=== PATIENT | female | born 1930 | race Two or more races ===

== ENCOUNTER → 2016-02-17 | Outpatient (CLI) | payer MEDICARE, MEDICAID | LOC: PNR 00:29 | PROVIDERS: ATTEND Internal Medicine | DX: E87.5 Hyperkalemia (principal); Z53.8 Procedure and treatment not carried out for other reasons ==

== ENCOUNTER 2016-06-16 20:47 | Inpatient (IN) | payer MEDICARE, MEDICAID ==
[2016-06-16] MEDS ORDERED: NORMAL SALINE 1000 ML 1,000 ML IV ONE ×2 (21:18→23:43)
--- NOTE | 2016-06-16 21:27 | ER Document Report ---
ED General - General Chief Complaint: Altered Mental Status Stated Complaint: ALTERED MENTAL STATUS Notes: Patient was transferred here from a local custodial to be evaluated for a change in mental status, apparently today. Patient supposedly has Alzheimer's dementia and her normal activity is very rudimentary moaning and making noises. Supposedly, today the patient is less responsive than usual and not displaying her normal level of activity. In route by EMS, they attempted to start IVs, but the patient was combative and unwilling to allow them to start the IV. She does not answer any questions or follow any verbal commands. She seems to be very soundly asleep with mentally decreased function. TRAVEL OUTSIDE OF THE [place] IN LAST 30 DAYS: No - Related Data Allergies/Adverse Reactions: No Known Allergies Allergy (Unverified 09/05/15 19:41) Past Medical History - Social History Smoking Status: Unknown if Ever Smoked Cigarette use (# per day): No Family History: Reviewed & Not Pertinent - Past Medical History Cardiac Medical History: Reports: Hx Congestive Heart Failure, Hx Hypercholesterolemia, Hx Hypertension Pulmonary Medical History: Reports: Hx Asthma Endocrine Medical History: Reports: Hx Diabetes Mellitus Type 2 Renal/ Medical History: Reports: Hx End Stage Renal Disease GI Medical History: Reports: Hx Gastroesophageal Reflux Disease Psychiatric Medical History: Reports: Hx Dementia, Hx Depression Past Surgical History: Reports: Hx Pacemaker Review of Systems - Review of Systems -: Yes ROS unobtainable due to patient's medical condition - Patient does not respond, follow commands, or answer questions. No family. Physical Exam - Vital signs Vitals: Resp Pulse Ox 15 99 06/16/16 21:12 06/16/16 21:12 Interpretation: Normal - Notes Notes: PHYSICAL EXAMINATION: GENERAL: Well-appearing, in no acute distress. Sleeping poorly responsive to any verbal or tactile stimulation. HEAD: Atraumatic, normocephalic. NECK: Normal range of motion, supple. LUNGS: Breath sounds clear and equal bilaterally. HEART: Regular rate and rhythm without murmurs. Not tachycardic ABDOMEN: Soft, nontender. No guarding or rebound. BACK: No tenderness throughout entire back. EXTREMITIES: Normal range of motion without pain. NEUROLOGICAL: Does not speak and gait cannot be tested. Patient is not awake or alert and not oriented. SKIN: Warm, dry, no rashes. Course - Re-evaluation Re-evalutation: 06/16/16 23:38 Patient remained stable throughout her stay in the department. Vital signs remained stable. She did not show any more activity than she did upon arrival. Her workup shows a UTI, some renal insufficiency, and some likely dehydration. 5 cultured her urine and her blood. Spoke with her primary care provider, Dr. Davis, who is going to the patient in for the rest of the night for observation while treating her for her UTI. Patient was put on Rocephin 1 g IV. I did call her son, local analyst geochemical prospecting Dr. Matthews, to make him aware of patient's circumstances and condition. - Vital Signs Vital signs: Temp Pulse Resp BP Pulse Ox 15 116/57 L 97 06/16/16 21:12 06/16/16 23:02 06/16/16 23:02 - Laboratory Result Diagrams: 06/16/16 21:30 06/16/16 21:30 Laboratory results interpreted by me: 06/16/16 06/16/16 06/16/16 21:30 21:30 22:30 Hgb 11.7 L Hct 34.9 L RDW 14.4 H Eosinophils % 11.8 H Absolute Eosinophils 0.8 H BUN 55 H Creatinine 2.47 H Est GFR ( Amer) 22 L Est GFR (Non-Af Amer) 18 L Glucose 135 H Direct Bilirubin 0.5 H AST 49 H Lipase 420.2 H Urine Protein 30 H Urine Blood SMALL H Ur Leukocyte Esterase LARGE H Urine Ascorbic Acid 20 H - Diagnostic Test Radiology reviewed: Image reviewed, Reports reviewed - Chest x-ray shows cardiomegaly with mild vascular congestion. Discharge - Discharge Clinical Impression: UTI (urinary tract infection) Qualifiers: Urinary tract infection type: site unspecified Hematuria presence: without hematuria Qualified Code(s): N39.0 - Urinary tract infection, site not specified Dementia Qualifiers: Dementia type: unspecified type Dementia behavioral disturbance: without behavioral disturbance Qualified Code(s): F03.90 - Unspecified dementia without behavioral disturbance Condition: Fair Disposition: ADMITTED OBSERVATION Admitting Provider: [facility] Unit Admitted: Medical Floor
[2016-06-16 21:51] LABS: ABSOLUTE BASOPHILS # (AUTO) 0.1 10^3/uL (0.0-0.2); ABSOLUTE EOSINOPHILS # (AUTO) 0.8 10^3/uL (0.0-0.6); ABSOLUTE MONOCYTES (AUTO) 0.7 10^3/uL (0.1-1.4); ABSOLUTE NEUT (AUTO) 3.1 10^3/uL (1.7-8.2); BASOPHILS % (AUTO) 0.8 % (0-2); EOSINOPHILS % (AUTO) 11.8 % (0-6); HEMATOCRIT 34.9 % (36.0-47.0); HEMOGLOBIN 11.7 g/dL (12.0-15.5); HGB HCT DIFFERENCE 0.2; LYMPHOCYTES % (AUTO) 30.1 % (13-45); MEAN CORPUSCULAR HEMOGLOBIN 27.7 pg (27.0-33.4); MEAN CORPUSCULAR HGB CONC 33.4 g/dL (32.0-36.0); MEAN CORPUSCULAR VOLUME 83 fl (80-97); MONOCYTES % (AUTO) 10.9 % (3-13); RED BLOOD COUNT 4.21 10^6/uL (3.72-5.28); RED CELL DISTRIBUTION WIDTH 14.4 % (11.5-14.0); SEGMENTED NEUTROPHILS % (AUTO) 46.4 % (42-78); WHITE BLOOD COUNT 6.7 10^3/uL (4.0-10.5)
[2016-06-16 22:16] LABS: ALANINE AMINOTRANSFERASE 20 U/L (9-52); ALBUMIN 3.5 g/dL (3.5-5.0); ALKALINE PHOSPHATASE 64 U/L (38-126); ANION GAP 12 (5-19); ASPARTATE AMINO TRANSFERASE 49 U/L (14-36); BILIRUBIN,DIRECT 0.5 mg/dL (0.0-0.4); BILIRUBIN,TOTAL 0.6 mg/dL (0.2-1.3); BLOOD UREA NITROGEN 55 mg/dL (7-20); CALCIUM 9.1 mg/dL (8.4-10.2); CARBON DIOXIDE 25 mmol/L (22-30); CHLORIDE 102 mmol/L (98-107); CREATININE RESULT 2.47 mg/dL (0.52-1.25); GLUCOSE 135 mg/dL (75-110); LIPASE 420.2 U/L (23-300); POTASSIUM 4.9 mmol/L (3.6-5.0); SODIUM 138.7 mmol/L (137-145); TOTAL PROTEIN 6.8 g/dL (6.3-8.2)
[2016-06-16 23:02] LABS: AMORPHOUS SEDIMENT,URINE TRACE /HPF; APPEARANCE,URINE CLOUDY; BILIRUBIN,URINE NEGATIVE (NEGATIVE); GLUCOSE, URINE NEGATIVE (NEGATIVE); KETONES,URINE NEGATIVE (NEGATIVE); LEUKOCYTE ESTERASE,URINE LARGE (NEGATIVE); NITRITE,URINE NEGATIVE (NEGATIVE); PROTEIN,URINE 30 mg/dL (NEGATIVE); URINE SPECIFIC GRAVITY 1.006; UROBILINOGEN,URINE NEGATIVE mg/dL (<2.0)
[2016-06-16] MEDS ORDERED: CEFTRIAXONE 1 GM/D5W RTU 50 ML IV ONE (23:20)
[2016-06-17] MEDS ORDERED: NORMAL SALINE 1000 ML 1,000 ML IV PRN (05:56)
--- NOTE | 2016-06-17 15:59 | PDOC H&P ---
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 She was seen and evaluated in the emergency room she was diagnosed with presumptive UTI and metabolic encephalopathy due to UTI and hospital admission was advised. She is a DNR status, no history could be obtained from this patient ,she normally does not communicate even in her good days, the difference now is that she is very stuporous but will respond to noxious stimulus like sternal pressure. The ED record was reviewed Past Medical History Cardiac Medical History: Reports: Hyperlipidema, Hypertension Pulmonary Medical History: Reports: Asthma Endocrine Medical History: Reports: Diabetes Mellitus Type 2 Renal/ Medical History: Reports: Chronic Kidney Disease - Chronic kidney disease stage IV, Other - Chronic kidney disease stage IV GI Medical History: Reports: Gastroesophageal Reflux Disease Psychiatric Medical History: Reports: Dementia Past Surgical History Past Surgical History: Reports: Pacemaker Social History Lives with: Assisted Smoking Status: Smoker,Current Status Unk Frequency of Alcohol Use: None Hx Prescription Drug Abuse: No Family History Family History: Reviewed & Not Pertinent Parental Family History Reviewed: Yes Children Family History Reviewed: Yes Sibling(s) Family History Reviewed.: Yes Medication/Allergy Home Medications: Acetaminophen [Tylenol 325 mg Tablet] 650 mg PO Q4HP PRN 06/17/16 Amlodipine Besylate [Norvasc 10 mg Tablet] 10 mg PO DAILY 06/17/16 Aspirin [Aspirin 81 mg Chewable Tablet] 81 mg PO DAILY 06/17/16 Budesonide/Formoterol Fumarate [Symbicort Hfa 160-4.5 Mcg Inhaler 6 gm] 2 puff IH Q12 06/17/16 Carvedilol [Coreg 6.25 mg Tablet] 6.25 mg PO Q12 06/17/16 Cholecalciferol (Vitamin D3) [Vitamin D3 1000 Unit Tablet] 1,000 unit PO DAILY 06/17/16 Citalopram Hydrobromide [Celexa 20 mg Tablet] 20 mg PO DAILY 06/17/16 Docusate Sodium [Colace 100 mg Capsule] 100 mg PO BID 06/17/16 Ferrous Sulfate [Feosol 325 mg Tablet] 325 mg PO DAILY 06/17/16 Furosemide [Lasix] 20 mg PO DAILY 06/17/16 Insulin Glargine,Hum.rec.anlog [Lantus Insulin 100 Unit/1 ml 10 ml] 5 unit SUBCUT QHS 06/17/16 Insulin Lispro [Humalog Insulin 100 Unit/1 ml 3 ml Vial] 0 unit SUBCUT .SLD SCALE PRN 06/17/16 Lorazepam [Ativan 0.5 mg Tablet] 0.5 mg PO BIDP PRN 06/17/16 Omeprazole 40 mg PO DAILY 06/17/16 Sodium Bicarbonate [Sodium Bicarbonate 650 mg Tablet] 650 mg PO TID 06/17/16 Sodium Polystyrene Sulfonate [Kayexalate 15 Gm/60 Ml Susp 60 Ml] 15 gm PO DAILY 06/17/16 Allergies/Adverse Reactions: No Known Allergies Allergy (Unverified 09/05/15 19:41) Review of Systems ROS unobtainable: Due to mental status Physical Exam Vital Signs: Temp Pulse Resp BP Pulse Ox 98.3 F 68 14 146/65 H 100 06/17/16 11:49 06/17/16 11:49 06/17/16 11:49 06/17/16 11:49 06/17/16 11:49 Intake & Output 06/16/16 06/17/16 06/18/16 06:59 06:59 06:59 Intake Total 0 Output Total 400 Balance -400 Weight 50.5 kg General appearance: PRESENT: other - Stuporous but responsive Eye exam: PRESENT: PERRLA Respiratory exam: PRESENT: clear to auscultation juana Cardiovascular exam: PRESENT: +S1, +S2 GI/Abdominal exam: PRESENT: soft Neurological exam: PRESENT: altered Results Impressions: Chest X-Ray 06/16/16 21:21 IMPRESSION: Cardiomegaly with mild pulmonary vascular congestion. Other findings as noted above Head CT 06/17/16 00:00 IMPRESSION: CHRONIC CHANGES OF ATROPHY AND MICROVASCULAR ISCHEMIA. NO ACUTE PROCESS. Assessment & Plan - Diagnosis (1) Metabolic encephalopathy Is this a current diagnosis for this admission?: Yes (2) Dementia Qualifiers: Dementia type: unspecified type Dementia behavioral disturbance: without behavioral disturbance Qualified Code(s): F03.90 - Unspecified dementia without behavioral disturbance (3) UTI (urinary tract infection) Qualifiers: Urinary tract infection type: site unspecified Hematuria presence: without hematuria Qualified Code(s): N39.0 - Urinary tract infection, site not specified Is this a current diagnosis for this admission?: YesPlan: Treat with IV antibiotic Rocephin
[2016-06-17 16:15] LABS: HEMOGLOBIN 12.2 g/dL (12.0-15.5); HGB HCT DIFFERENCE 0.6; MEAN CORPUSCULAR HGB CONC 33.9 g/dL (32.0-36.0); MEAN CORPUSCULAR VOLUME 83 fl (80-97); RED BLOOD COUNT 4.37 10^6/uL (3.72-5.28); RED CELL DISTRIBUTION WIDTH 14.2 % (11.5-14.0); WHITE BLOOD COUNT 7.3 10^3/uL (4.0-10.5)
[2016-06-17 16:23] LABS: PARTIAL THROMBOPLASTIN TIME 28.6 SEC (23.5-35.8); PROTHROMBIN TIME 13.4 SEC (11.4-15.4)
[2016-06-17] MEDS ORDERED: CEFTRIAXONE 1 GM/D5W RTU 1 GM/50 ML RTUPB IV SCH (22:00)
[2016-06-17] MEDS: HEPARIN SOD (PORCINE) 5,000 UNIT/ML 1 ML SYRINGE SUBCUT SCH (23:26)
[2016-06-18] MEDS: HEPARIN SOD (PORCINE) 5,000 UNIT/ML 1 ML SYRINGE SUBCUT SCH ×3 (06:18→23:53)
[2016-06-18] MEDS ORDERED: ACETAMINOPHEN 325 MG TABLET PO PRN (19:13)
--- NOTE | 2016-06-18 19:15 | PDOC PROGRESS REPORT ---
Subjective Progress Note for:: 06/18/16 Subjective:: She is back to her baseline, she is awake nonverbal, when she was admitted she was virtually unresponsive, she was not started on a regular medication because of the unresponsiveness she will be started on medications now, so clearly she responded to IV antibiotic suggesting that the metabolic encephalopathy is due to UTI no organism is cultured yet in the urine. Physical Exam Vital Signs: Temp Pulse Resp BP Pulse Ox 97.5 F 59 L 17 150/50 H 100 06/18/16 15:55 06/18/16 15:55 06/18/16 15:55 06/18/16 15:55 06/18/16 15:55 Intake & Output 06/17/16 06/18/16 06/19/16 06:59 06:59 06:59 Intake Total 0 1777 236 Output Total 400 2800 700 Balance -400 -1023 -464 Weight 50.5 kg 50.4 kg General appearance: PRESENT: no acute distress Eye exam: PRESENT: PERRLA Respiratory exam: PRESENT: clear to auscultation juana Cardiovascular exam: PRESENT: +S1, +S2 GI/Abdominal exam: PRESENT: soft Neurological exam: PRESENT: alert Results Laboratory Results: 06/17/16 16:08 06/17/16 16:08 Impressions: Chest X-Ray 06/16/16 21:21 IMPRESSION: Cardiomegaly with mild pulmonary vascular congestion. Other findings as noted above Head CT 06/17/16 00:00 IMPRESSION: CHRONIC CHANGES OF ATROPHY AND MICROVASCULAR ISCHEMIA. NO ACUTE PROCESS. Assessment & Plan - Diagnosis (1) Metabolic encephalopathy Is this a current diagnosis for this admission?: Yes (2) Dementia Qualifiers: Dementia type: unspecified type Dementia behavioral disturbance: without behavioral disturbance Qualified Code(s): F03.90 - Unspecified dementia without behavioral disturbance (3) UTI (urinary tract infection) Qualifiers: Urinary tract infection type: site unspecified Hematuria presence: without hematuria Qualified Code(s): N39.0 - Urinary tract infection, site not specified Is this a current diagnosis for this admission?: Yes (4) Chronic kidney disease, stage IV (severe) Is this a current diagnosis for this admission?: Yes (5) Diabetes mellitus Qualifiers: Diabetes mellitus type: type 2 Diabetes mellitus complication status: with kidney complications Diabetes mellitus complication detail: with chronic kidney disease 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
[2016-06-18] MEDS ORDERED: FUROSEMIDE 20 MG TABLET PO ONE (21:00)
[2016-06-18] MEDS ORDERED: AMLODIPINE BESYLATE 10 MG TABLET PO ONE (21:00)
[2016-06-18] MEDS ORDERED: CITALOPRAM HYDROBROMIDE 20 MG TABLET PO ONE (21:00)
[2016-06-18] MEDS ORDERED: CHOLECALCIFEROL (D3) 1,000 UNIT TABLET PO ONE (21:00)
[2016-06-18] MEDS ORDERED: SODIUM POLYSTYRENE SULFONATE 15 GM/60 ML PO ONE (21:00)
[2016-06-18] MEDS ORDERED: ASPIRIN 81 MG TABLET, CHEWABLE PO ONE (21:00)
[2016-06-18] MEDS ORDERED: FERROUS SULFATE 325 MG TABLET PO ONE (21:00)
[2016-06-18] MEDS ORDERED: CEFTRIAXONE 1 GM/D5W RTU 1 GM/50 ML RTUPB IV SCH (22:00)
[2016-06-18] MEDS ORDERED: INSULIN GLARGINE,HUM.REC.ANLOG 300 UNIT/3 ML INSULN.PEN SUBCUT SCH (22:00)
[2016-06-18] MEDS ORDERED: SODIUM POLYSTYRENE SULFONATE 15 GM/60 ML PO SCH (22:00)
[2016-06-18] MEDS: DOCUSATE SODIUM 100 MG CAPSULE PO SCH (23:50)
[2016-06-18] MEDS: BUDESONIDE/FORMOTEROL 160-4.5 MCG 60 PUFF/6 GM MDI IH SCH (23:51)
[2016-06-18] MEDS: CARVEDILOL 6.25 MG TABLET PO SCH (23:52)
[2016-06-18] MEDS: SODIUM BICARBONATE 650 MG TABLET PO SCH (23:52)
[2016-06-19] MEDS: SODIUM BICARBONATE 650 MG TABLET PO SCH ×3 (06:17→21:32)
[2016-06-19] MEDS: HEPARIN SOD (PORCINE) 5,000 UNIT/ML 1 ML SYRINGE SUBCUT SCH ×2 (06:17→16:00)
[2016-06-19] MEDS ORDERED: LANSOPRAZOLE 30 MG TAB.RAP.DR PO SCH (10:00)
[2016-06-19] MEDS ORDERED: ASPIRIN 81 MG TABLET, CHEWABLE PO SCH (10:00)
[2016-06-19] MEDS ORDERED: CITALOPRAM HYDROBROMIDE 20 MG TABLET PO SCH (10:00)
[2016-06-19] MEDS ORDERED: FERROUS SULFATE 325 MG TABLET PO SCH (10:00)
[2016-06-19] MEDS ORDERED: CHOLECALCIFEROL (D3) 1,000 UNIT TABLET PO SCH (10:00)
[2016-06-19] MEDS ORDERED: FUROSEMIDE 20 MG TABLET PO SCH (10:00)
[2016-06-19] MEDS ORDERED: AMLODIPINE BESYLATE 10 MG TABLET PO SCH (10:00)
[2016-06-19] MEDS: DOCUSATE SODIUM 100 MG CAPSULE PO SCH (12:01)
[2016-06-19] MEDS: BUDESONIDE/FORMOTEROL 160-4.5 MCG 60 PUFF/6 GM MDI IH SCH (12:03)
[2016-06-19] MEDS: CARVEDILOL 6.25 MG TABLET PO SCH ×2 (12:03→21:32)
[2016-06-19 14:18] LABS: ABSOLUTE BASOPHILS # (AUTO) 0.1 10^3/uL (0.0-0.2); ABSOLUTE EOSINOPHILS # (AUTO) 0.6 10^3/uL (0.0-0.6); ABSOLUTE LYMPHOCYTES (AUTO) 1.3 10^3/uL (0.5-4.7); ABSOLUTE MONOCYTES (AUTO) 0.5 10^3/uL (0.1-1.4); ABSOLUTE NEUT (AUTO) 4.3 10^3/uL (1.7-8.2); BASOPHILS % (AUTO) 1.1 % (0-2); EOSINOPHILS % (AUTO) 9.1 % (0-6); HEMATOCRIT 35.4 % (36.0-47.0); HEMOGLOBIN 11.6 g/dL (12.0-15.5); HGB HCT DIFFERENCE -0.6; LYMPHOCYTES % (AUTO) 19.1 % (13-45); MEAN CORPUSCULAR HEMOGLOBIN 27.3 pg (27.0-33.4); MEAN CORPUSCULAR HGB CONC 32.6 g/dL (32.0-36.0); MEAN CORPUSCULAR VOLUME 84 fl (80-97); MONOCYTES % (AUTO) 7.3 % (3-13); RED BLOOD COUNT 4.23 10^6/uL (3.72-5.28); RED CELL DISTRIBUTION WIDTH 14.5 % (11.5-14.0); SEGMENTED NEUTROPHILS % (AUTO) 63.4 % (42-78); WHITE BLOOD COUNT 6.8 10^3/uL (4.0-10.5)
[2016-06-19 14:31] LABS: ALANINE AMINOTRANSFERASE 62 U/L (9-52); ALBUMIN 3.4 g/dL (3.5-5.0); ALKALINE PHOSPHATASE 78 U/L (38-126); ANION GAP 11 (5-19); ASPARTATE AMINO TRANSFERASE 75 U/L (14-36); BILIRUBIN,DIRECT 0.3 mg/dL (0.0-0.4); BILIRUBIN,TOTAL 0.5 mg/dL (0.2-1.3); BLOOD UREA NITROGEN 29 mg/dL (7-20); CALCIUM 8.8 mg/dL (8.4-10.2); CARBON DIOXIDE 23 mmol/L (22-30); CHLORIDE 108 mmol/L (98-107); GLUCOSE 112 mg/dL (75-110); POTASSIUM 4.5 mmol/L (3.6-5.0); SODIUM 142.3 mmol/L (137-145); TOTAL PROTEIN 6.3 g/dL (6.3-8.2)
[2016-06-19 15:02] LABS: THYROID STIMULATING HORMONE 2.86 uIU/mL (0.47-4.68)
--- NOTE | 2016-06-19 17:34 | PDOC TRANSFER SUMMARY ---
General - Admit/Disc Date/PCP Admission Date/Primary Care Provider: 06/17/16 05:45 CANDICE LUND MD Discharge Date: 06/19/16 - Discharge Diagnosis (1) Metabolic encephalopathy Is this a current diagnosis for this admission?: Yes (3) UTI (urinary tract infection) Is this a current diagnosis for this admission?: Yes (4) Chronic kidney disease, stage IV (severe) Is this a current diagnosis for this admission?: Yes (5) Diabetes mellitus Is this a current diagnosis for this admission?: Yes - Additional Information Home Medications: Acetaminophen [Tylenol 325 mg Tablet] 650 mg PO Q4HP PRN 06/17/16 Amlodipine Besylate [Norvasc 10 mg Tablet] 10 mg PO DAILY 06/17/16 Aspirin [Aspirin 81 mg Chewable Tablet] 81 mg PO DAILY 06/17/16 Budesonide/Formoterol Fumarate [Symbicort HFA 160-4.5 mcg Inhaler 6 gm] 2 puff IH Q12 06/17/16 Carvedilol [Coreg 6.25 mg Tablet] 6.25 mg PO Q12 06/17/16 Cholecalciferol (Vitamin D3) [Vitamin D3 1000 Unit Tablet] 1,000 unit PO DAILY 06/17/16 Citalopram Hydrobromide [Celexa 20 mg Tablet] 20 mg PO DAILY 06/17/16 Docusate Sodium [Colace 100 mg Capsule] 100 mg PO BID 06/17/16 Ferrous Sulfate [Feosol 325 mg Tablet] 325 mg PO DAILY 06/17/16 Furosemide [Lasix] 20 mg PO DAILY 06/17/16 Insulin Glargine,Hum.rec.anlog [Lantus Insulin 100 Unit/1 ml 10 ml] 5 unit SUBCUT QHS 06/17/16 Insulin Lispro [Humalog Insulin (Lispro) 100 unit/mL] 0 unit SUBCUT .SLD SCALE PRN 06/17/16 Lorazepam [Ativan 0.5 mg Tablet] 0.5 mg PO BIDP PRN 06/17/16 Omeprazole 40 mg PO DAILY 06/17/16 Sodium Bicarbonate [Sodium Bicarbonate 650 mg Tablet] 650 mg PO TID 06/17/16 Sodium Polystyrene Sulfonate [Kayexalate 15 gm/60 ml Susp 60 ml] 15 gm PO DAILY 05/03/17 Nitrofurantoin Macrocrystal [Nitrofurantoin] 50 mg PO Q6H #28 capsule 06/19/16 History of Present Illness Admission Date/PCP: 06/17/16 05:45 CANDICE LUND MD History of Present Illness: AUDRA LANDRY is a 86 year old female, advanced dementia, 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 She was seen and evaluated in the emergency room she was diagnosed with presumptive UTI and metabolic encephalopathy due to UTI and hospital admission was advised. She is a DNR status, no history could be obtained from this patient ,she normally does not communicate even in her good days, the difference now is that she is very stuporous but will respond to noxious stimulus like sternal pressure. The ED record was reviewed Hospital Course Hospital Course: Patient was admitted because of UTI and metabolic encephalopathy, on admission she was very stuporous, she was treated with IV Rocephin and she regained full consciousness in 24 hours she was back to her baseline . 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 The urine culture grew Streptococcus Physical Exam Vital Signs: Temp Pulse Resp BP Pulse Ox 97.3 F 59 L 17 171/62 H 99 06/19/16 15:56 06/19/16 15:56 06/19/16 15:56 06/19/16 15:56 06/19/16 15:56 Intake & Output 06/18/16 06/19/16 06/20/16 06:59 06:59 06:59 Intake Total 1777 1162 357 Output Total 2800 2200 500 Balance -1023 -1038 -143 Weight 50.4 kg 50.4 kg General appearance: PRESENT: no acute distress Eye exam: PRESENT: PERRLA Respiratory exam: PRESENT: clear to auscultation juana Cardiovascular exam: PRESENT: +S1, +S2 Neurological exam: PRESENT: alert Results Laboratory Results: 06/19/16 13:59 06/19/16 13:59 06/19/16 06/19/16 06/19/16 13:59 13:59 13:59 WBC 6.8 RBC 4.23 Hgb 11.6 L Hct 35.4 L MCV 84 MCH 27.3 MCHC 32.6 RDW 14.5 H Plt Count 209 Seg Neutrophils % 63.4 Lymphocytes % 19.1 Monocytes % 7.3 Eosinophils % 9.1 H Basophils % 1.1 Absolute Neutrophils 4.3 Absolute Lymphocytes 1.3 Absolute Monocytes 0.5 Absolute Eosinophils 0.6 Absolute Basophils 0.1 Sodium 142.3 Potassium 4.5 Chloride 108 H Carbon Dioxide 23 Anion Gap 11 BUN 29 H Creatinine 1.70 H Est GFR ( Amer) 34 L Est GFR (Non-Af Amer) 28 L Glucose 112 H Calcium 8.8 Total Bilirubin 0.5 AST 75 H ALT 62 H Alkaline Phosphatase 78 Total Protein 6.3 Albumin 3.4 L TSH 2.86 Free T4 1.32 Impressions: Chest X-Ray 06/16/16 21:21 IMPRESSION: Cardiomegaly with mild pulmonary vascular congestion. Other findings as noted above Head CT 06/17/16 00:00 IMPRESSION: CHRONIC CHANGES OF ATROPHY AND MICROVASCULAR ISCHEMIA. NO ACUTE PROCESS.
[2016-06-19 21:27] VITALS: BP 187/63
== END 2016-06-19 22:03 | DRG 689 ==
LOC: ER 20:47 → EH 23:37 → 2N 06-17 03:10 → OBSVTOIN 06-17 05:45 → 4W 06-17 12:43
PROVIDERS: ADMIT Internal Medicine; ATTEND Internal Medicine
DX: N39.0 Urinary tract infection, site not specified (principal); G93.41 Metabolic encephalopathy; N18.4 Chronic kidney disease, stage 4 (severe); I13.0 Hypertensive heart and chronic kidney disease with heart failure and stage 1 through stage 4 chronic kidney disease, or unspecified chronic kidney disease; F03.90 Unspecified dementia, unspecified severity, without behavioral disturbance, psychotic disturbance, mood disturbance, and anxiety; E11.22 Type 2 diabetes mellitus with diabetic chronic kidney disease; E78.5 Hyperlipidemia, unspecified; J45.909 Unspecified asthma, uncomplicated; K21.9 Gastro-esophageal reflux disease without esophagitis; F17.210 Nicotine dependence, cigarettes, uncomplicated; F32.9 Major depressive disorder, single episode, unspecified; B95.1 Streptococcus, group B, as the cause of diseases classified elsewhere; Z66 Do not resuscitate; Z95.0 Presence of cardiac pacemaker; Z88.6 Allergy status to analgesic agent; Z79.02 Long term (current) use of antithrombotics/antiplatelets; Z79.4 Long term (current) use of insulin; Z79.899 Other long term (current) drug therapy
CPT/HCPCS: 36415; 70450; 71010; 80053; 81001; 82565; 82962; 83690; 84439; 84443; 85025; 85027; 85610; 85730; 87040; 87077; 87086; 87088; 87186; 96361; 96365; 99285; J0696; J1644; J1815; J3490; J7030

== ENCOUNTER 2016-07-25 10:51 | Inpatient (IN) | payer MEDICARE, MEDICAID ==
--- NOTE | 2016-07-25 11:04 | ER Document Report ---
ED Respiratory Problem - General Stated Complaint: RESPIRATORY DISTRESS Time Seen by Provider: 07/25/16 11:01 Notes: Patient is a resident at a local snf. She has a history of heart disease and other medical conditions. She is a DNR status patient. EMS was called today for patient having difficulty breathing. They found her having some respiratory difficulty and wheezes and gave her 2 nebulizer treatments with albuterol and Atrovent. She also was found to have rectal temp of 100.8 at the snf. Patient does not respond to questions or answer any questions or follow commands. I understand that is her normal neurologic status , TRAVEL OUTSIDE OF THE [place] IN LAST 30 DAYS: No - Related Data Allergies/Adverse Reactions: No Known Allergies Allergy (Verified 07/25/16 11:38) Past Medical History - Social History Smoking Status: Never Smoker Cigarette use (# per day): No Family History: Reviewed & Not Pertinent - Past Medical History Cardiac Medical History: Reports: Hx Congestive Heart Failure, Hx Hypercholesterolemia, Hx Hypertension Pulmonary Medical History: Reports: Hx Asthma Endocrine Medical History: Reports: Hx Diabetes Mellitus Type 2 Renal/ Medical History: Reports: Hx End Stage Renal Disease GI Medical History: Reports: Hx Gastroesophageal Reflux Disease Psychiatric Medical History: Reports: Hx Dementia, Hx Depression Past Surgical History: Reports: Hx Pacemaker Review of Systems - Review of Systems -: Yes ROS unobtainable due to patient's medical condition - Patient does not speak or respond to verbal commands or questions. No fami Physical Exam - Vital signs Vitals: Temp Pulse Resp BP Pulse Ox 100.5 F H 69 23 H 181/64 H 97 07/25/16 10:55 07/25/16 10:55 07/25/16 10:55 07/25/16 10:55 07/25/16 10:55 Interpretation: Hypertensive, Tachycardic, Febrile - Notes Notes: PHYSICAL EXAMINATION: GENERAL: Patient appears to be resting comfortably. Does not respond to questions or follow any commands. Wheezing audible to the naked ear noted. HEAD: Atraumatic, normocephalic. ENT: oropharynx clear without exudates. Moist mucous membranes. NECK: Normal range of motion, supple. LUNGS: Bilateral expiratory wheezes. HEART: Regular rate and rhythm without murmurs. ABDOMEN: Soft, nontender. No guarding or rebound. BACK: No tenderness throughout entire back. EXTREMITIES: Normal range of motion without pain. No edema present. NEUROLOGICAL: Patient does not respond to questions or follow commands. She is a DNR patient. PSYCH: Unable to assess. SKIN: Warm, dry, no rashes. Course - Re-evaluation Re-evalutation: 07/25/16 12:56 Patient's lab work shows some mild renal insufficiency. White cell count slightly elevated. Patient was given a gram of Rocephin IV for possible pneumonia. Urinalysis was essentially normal. Cultures of blood and urine are pending. Discussed the results with the patient's son, who is a local pump house engineer, Dr. Matthews. I will contact this patient's primary care provider for admission. 07/25/16 13:08 - Vital Signs Vital signs: Temp Pulse Resp BP Pulse Ox 100.5 F H 69 18 155/53 H 99 07/25/16 10:55 07/25/16 10:55 07/25/16 12:01 07/25/16 12:01 07/25/16 12:01 - Laboratory Result Diagrams: 07/25/16 11:20 07/25/16 11:20 Laboratory results interpreted by me: 07/25/16 07/25/16 07/25/16 11:20 11:20 11:20 WBC 12.3 H RBC 3.51 L Hgb 9.5 L Hct 29.7 L RDW 14.2 H Seg Neutrophils % 85.3 H Lymphocytes % 7.4 L Absolute Neutrophils 10.5 H Sodium 145.4 H Chloride 110 H BUN 32 H Creatinine 2.08 H Est GFR ( Amer) 27 L Est GFR (Non-Af Amer) 23 L Glucose 236 H Calcium 8.3 L AST 37 H NT-Pro-B Natriuret Pep 59475 H Albumin 2.9 L Urine Protein Urine Glucose (UA) Urine Ascorbic Acid 07/25/16 11:20 WBC RBC Hgb Hct RDW Seg Neutrophils % Lymphocytes % Absolute Neutrophils Sodium Chloride BUN Creatinine Est GFR ( Amer) Est GFR (Non-Af Amer) Glucose Calcium AST NT-Pro-B Natriuret Pep Albumin Urine Protein >=500 H Urine Glucose (UA) 50 H Urine Ascorbic Acid 20 H - Diagnostic Test Radiology reviewed: Image reviewed, Reports reviewed - Patient's chest x-ray shows some cardiomegaly and some increased pulmonary vascular congestion. When I compare it to her previous chest x-ray, I believe there is some evidence of infiltrate and pneumonia. - EKG Interpretation by Me EKG shows normal: Sinus rhythm Rate: Normal Rhythm: NSR [place]/QRS: RBBB Discharge - Discharge Clinical Impression: Fever Qualifiers: Fever type: unspecified Qualified Code(s): R50.9 - Fever, unspecified Pneumonia Qualifiers: Pneumonia type: due to unspecified organism Laterality: right Lung location: middle lobe of lung Qualified Code(s): J18.1 - Lobar pneumonia, unspecified organism Condition: Poor Disposition: ADMITTED INPATIENT Admitting Provider: [facility] Admitted: Telemetry
[2016-07-25] MEDS ORDERED: NORMAL SALINE 1000 ML 1,000 ML IV ONE (11:09)
[2016-07-25] MEDS ORDERED: IPRATROPIUM/ALBUTEROL 0.5-2.5 MG/3 ML AMPUL NEB ONE (11:10)
--- NOTE | 2016-07-25 11:25 | RADIOLOGY REPORT (SQ) ---
EXAM DESCRIPTION: CHEST SINGLE VIEW COMPLETED DATE/TIME: 07/25/2016 11:15 am REASON FOR STUDY: sob COMPARISON: 06/16/2016 NUMBER OF VIEWS: One view. TECHNIQUE: Single frontal radiographic view of the chest acquired. LIMITATIONS: None. FINDINGS: LUNGS AND PLEURA: No opacities, masses or pneumothorax. No pleural effusion. MEDIASTINUM AND HILAR STRUCTURES: No masses or contour abnormality. HEART AND VASCULATURE: Cardiac enlargement. Vascular congestion. BONES: No acute findings. HARDWARE: STABLE. OTHER: No other significant finding. IMPRESSION: CARDIAC ENLARGEMENT. VASCULAR CONGESTION. TECHNICAL DOCUMENTATION: JOB ID: [id number] [employer]- All Rights Reserved
[2016-07-25 12:00] LABS: APPEARANCE,URINE CLEAR; BILIRUBIN,URINE NEGATIVE (NEGATIVE); GLUCOSE, URINE 50 mg/dL (NEGATIVE); KETONES,URINE NEGATIVE (NEGATIVE); LEUKOCYTE ESTERASE,URINE NEGATIVE (NEGATIVE); NITRITE,URINE NEGATIVE (NEGATIVE); PROTEIN,URINE >=500 mg/dL (NEGATIVE); UROBILINOGEN,URINE NEGATIVE mg/dL (<2.0)
[2016-07-25 12:05] LABS: ABSOLUTE BASOPHILS # (AUTO) 0.1 10^3/uL (0.0-0.2); ABSOLUTE EOSINOPHILS # (AUTO) 0.1 10^3/uL (0.0-0.6); ABSOLUTE LYMPHOCYTES (AUTO) 0.9 10^3/uL (0.5-4.7); ABSOLUTE MONOCYTES (AUTO) 0.8 10^3/uL (0.1-1.4); ABSOLUTE NEUT (AUTO) 10.5 10^3/uL (1.7-8.2); BASOPHILS % (AUTO) 0.6 % (0-2); EOSINOPHILS % (AUTO) 0.5 % (0-6); HEMATOCRIT 29.7 % (36.0-47.0); HEMOGLOBIN 9.5 g/dL (12.0-15.5); HGB HCT DIFFERENCE -1.2; LYMPHOCYTES % (AUTO) 7.4 % (13-45); MEAN CORPUSCULAR HEMOGLOBIN 27.1 pg (27.0-33.4); MEAN CORPUSCULAR HGB CONC 32.2 g/dL (32.0-36.0); MEAN CORPUSCULAR VOLUME 84 fl (80-97); MONOCYTES % (AUTO) 6.2 % (3-13); RED BLOOD COUNT 3.51 10^6/uL (3.72-5.28); RED CELL DISTRIBUTION WIDTH 14.2 % (11.5-14.0); SEGMENTED NEUTROPHILS % (AUTO) 85.3 % (42-78); WHITE BLOOD COUNT 12.3 10^3/uL (4.0-10.5)
[2016-07-25] MEDS ORDERED: CEFTRIAXONE 1 GM/D5W RTU 50 ML IV ONE (12:08)
[2016-07-25 12:12] LABS: ALANINE AMINOTRANSFERASE 23 U/L (9-52); ALBUMIN 2.9 g/dL (3.5-5.0); ALKALINE PHOSPHATASE 108 U/L (38-126); ANION GAP 13 (5-19); ASPARTATE AMINO TRANSFERASE 37 U/L (14-36); BILIRUBIN,DIRECT 0.4 mg/dL (0.0-0.4); BILIRUBIN,TOTAL 0.8 mg/dL (0.2-1.3); BLOOD UREA NITROGEN 32 mg/dL (7-20); CALCIUM 8.3 mg/dL (8.4-10.2); CARBON DIOXIDE 22 mmol/L (22-30); CHLORIDE 110 mmol/L (98-107); CREATININE RESULT 2.08 mg/dL (0.52-1.25); GLUCOSE 236 mg/dL (75-110); POTASSIUM 3.8 mmol/L (3.6-5.0); SODIUM 145.4 mmol/L (137-145); TOTAL PROTEIN 6.7 g/dL (6.3-8.2)
[2016-07-25 12:25] LABS: CREATINE KINASE MB 1.09 ng/mL (<4.55)
[2016-07-25 12:30] LABS: TROPONIN I 0.136 ng/mL
[2016-07-25] MEDS ORDERED: FUROSEMIDE INJ/PF 20 MG/2 ML SDV IV ONE (12:53)
[2016-07-25 15:46] LABS: URINE CREATININE 48.8 mg/dL (15-278)
--- NOTE | 2016-07-25 15:51 | RADIOLOGY REPORT (SQ) ---
EXAM DESCRIPTION: CT CHEST WITHOUT COMPLETED DATE/TIME: 07/25/2016 3:32 pm REASON FOR STUDY: pneumonia COMPARISON: None. TECHNIQUE: CT scan performed of the chest without intravenous contrast. Images reviewed with lung, soft tissue and bone windows. Reconstructed coronal and sagittal MPR images reviewed. All images st ored on PACS. All CT scanners at this facility use dose modulation, iterative reconstruction, and/or weight based d osing when appropriate to reduce radiation dose to as low as reasonably achievable (ALARA). [facility]: Dose Right [facility]: CareDose [facility]: Dose Right [facility]: Teradose 4D [facility]: RIVA Group RADIATION DOSE: 7.97 mGy. LIMITATIONS: No technical limitations. FINDINGS: LUNGS AND PLEURA: Diffuse ground-glass opacities with more focal airspace disease in the r ight upper lobe and right middle lobe. Small bilateral pleural effusions, right greater than left. HILAR AND MEDIASTINAL STRUCTURES: No identified masses or abnormal nodes. No obvious aneurysm. HEART AND VASCULAR STRUCTURES: No aneurysm. Multichamber cardiomegaly. No significant pericardial e ffusion. UPPER ABDOMEN: No significant findings. Limited exam. THYROID AND OTHER SOFT TISSUES: No masses. No adenopathy. BONES: No significant finding. HARDWARE: None in the chest. OTHER: No other significant findings. IMPRESSION: DIFFUSE GROUND-GLASS OPACITIES COMPATIBLE WITH PULMONARY EDEMA ALONG WITH SMALL BILATERA L PLEURAL EFFUSIONS. ADDITIONAL AIRSPACE DISEASE WITHIN THE RIGHT UPPER LOBE AND RIGHT MIDDLE LOBE MAY REPRESENT SUPERIMPO SED PNEUMONIA. CORRELATE WITH FEVER/ELEVATED WHITE BLOOD CELL COUNT. TECHNICAL DOCUMENTATION: JOB ID: [id number] Quality ID # [id number]: Final reports with documentation of one or more dose reduction techniques (e.g., Au tomated exposure control, adjustment of the mA and/or kV according to patient size, use of iterative reconstruction technique) 2010 [employer]- All Rights Reserved
[2016-07-25 15:52] LABS: URINE PROTEIN 478.9 mg/dL (<12)
[2016-07-25] MEDS ORDERED: IPRATROPIUM/ALBUTEROL 0.5-2.5 MG/3 ML AMPUL NEB SCH (16:00)
[2016-07-25] MEDS ORDERED: DEXTROSE 40% GEL 15 GM TUBE PO PRN ×2 (16:23)
[2016-07-25] MEDS ORDERED: GLUCAGON,HUMAN RECOMB 1 MG INJ IM PRN (16:23)
[2016-07-25] MEDS ORDERED: DEXTROSE 50%-WATER 25 GM/50 ML DISP.SYRIN IV PRN ×2 (16:23)
[2016-07-25] MEDS ORDERED: FUROSEMIDE INJ/PF 40 MG/4 ML SDV IV ONE (17:00)
[2016-07-25] MEDS ORDERED: LEVOFLOXACIN 500 MG/D5W RTU 500 MG/100 ML RTUPB IV ONE (17:00)
[2016-07-25 17:08] LABS: HEMATOCRIT 29.1 % (36.0-47.0); HEMOGLOBIN 9.2 g/dL (12.0-15.5); HGB HCT DIFFERENCE -1.5; MEAN CORPUSCULAR HEMOGLOBIN 26.6 pg (27.0-33.4); MEAN CORPUSCULAR HGB CONC 31.6 g/dL (32.0-36.0); MEAN CORPUSCULAR VOLUME 84 fl (80-97); RED BLOOD COUNT 3.47 10^6/uL (3.72-5.28); RED CELL DISTRIBUTION WIDTH 14.5 % (11.5-14.0); WHITE BLOOD COUNT 11.1 10^3/uL (4.0-10.5)
[2016-07-25 17:20] LABS: PROTHROMBIN TIME 16.6 SEC (11.4-15.4)
[2016-07-25 17:21] LABS: PARTIAL THROMBOPLASTIN TIME 33.7 SEC (23.5-35.8)
[2016-07-25 17:27] LABS: CREATININE RESULT 2.05 mg/dL (0.52-1.25)
[2016-07-25] MEDS ORDERED: CEFEPIME 1 GM/D5W RTU 1 GM/50 ML RTUPB IV ONE (18:00)
[2016-07-25] MEDS ORDERED: CEFEPIME INJ 1 GM VIAL ONE (18:28)
[2016-07-25] MEDS: IPRATROPIUM/ALBUTEROL 0.5-2.5 MG/3 ML AMPUL NEB PRN (22:34)
[2016-07-25] MEDS: HEPARIN SOD (PORCINE) 5,000 UNIT/ML 1 ML SYRINGE SUBCUT SCH (22:59)
[2016-07-25] MEDS: ATORVASTATIN CALCIUM 40 MG TABLET PO SCH (22:59)
[2016-07-25] MEDS: INSULIN LISPRO 100 UNIT/ML 3 ML VIAL SUBCUT PRN (23:17)
[2016-07-26] MEDS: IPRATROPIUM/ALBUTEROL 0.5-2.5 MG/3 ML AMPUL NEB PRN ×3 (00:11→14:01)
[2016-07-26] MEDS: HEPARIN SOD (PORCINE) 5,000 UNIT/ML 1 ML SYRINGE SUBCUT SCH ×3 (06:32→22:15)
[2016-07-26] MEDS: CLOPIDOGREL BISULFATE 75 MG TABLET PO SCH (09:49)
[2016-07-26] MEDS: FUROSEMIDE INJ/PF 40 MG/4 ML SDV IV SCH (09:49)
[2016-07-26] MEDS ORDERED: CEFTRIAXONE 1 GM/D5W RTU 50 ML IV SCH (10:00)
[2016-07-26] MEDS ORDERED: CEFEPIME 1 GM/D5W RTU 1 GM/50 ML RTUPB IV SCH (10:00)
[2016-07-26] MEDS: POLYVINYL ALCOHOL 1.4% OPH SOLN 15 ML OU PRN (12:03)
[2016-07-26] MEDS: INSULIN LISPRO 100 UNIT/ML 3 ML VIAL SUBCUT PRN ×3 (12:03→22:47)
--- NOTE | 2016-07-26 12:19 | PDOC H&P ---
History of Present Illness Admission Date/PCP: 07/25/16 20:53 History of Present Illness: AUDRA LANDRY is a 86 year old female, she has advanced dementia, she was transferred from the group home to the emergency room because of respiratory distress. She was found to be wheezing in the group home, she was treated with DuoNeb without improvement ,the group home staff called me to advise me of the fact that she was not getting better, I advised them to transfer her to the emergency room for evaluation. The initial chest x-ray that was done was nondiagnostic, subsequent CT chest without contrast was ordered and it showed diffuse groundglass opacities, possibly due to pulmonary edema with small bilateral pleural effusions ,also found was additional airspace disease within the right upper lobe and right middle lobe which may represent a superimposed pneumonia. The urinalysis that was done showed significant proteinuria, more than 500, urine protein /creatinine ratio was done and it was 9.8 this correlates with 24 hour urine protein suggesting that she has nephrotic range proteinuria/nephrotic syndrome Past Medical History Cardiac Medical History: Reports: Coronary Artery Disease Pulmonary Medical History: Reports: Asthma, Pneumonia Endocrine Medical History: Reports: Diabetes Mellitus Type 2 Renal/ Medical History: Reports: Chronic Kidney Disease - Chronic kidney disease stage III GI Medical History: Reports: Gastroesophageal Reflux Disease Psychiatric Medical History: Reports: Dementia, Depression Past Surgical History Past Surgical History: Reports: Pacemaker Social History Smoking Status: Never Smoker Frequency of Alcohol Use: None Hx Recreational Drug Use: No Hx Prescription Drug Abuse: No - Advance Directive Resuscitation Status: Do Not Resuscitate Family History Family History: Reviewed & Not Pertinent Parental Family History Reviewed: Yes Children Family History Reviewed: Yes Sibling(s) Family History Reviewed.: Yes Medication/Allergy Home Medications: Acetaminophen [Tylenol 325 mg Tablet] 650 mg PO Q4HP PRN 07/25/16 Amlodipine Besylate [Norvasc 10 mg Tablet] 10 mg PO DAILY 07/25/16 Aspirin [Aspirin 81 mg Chewable Tablet] 81 mg PO DAILY 07/25/16 Budesonide/Formoterol Fumarate [Symbicort Hfa 160-4.5 Mcg Inhaler 6 gm] 2 puff IH Q12 07/25/16 Carvedilol [Coreg 6.25 mg Tablet] 6.25 mg PO Q12 07/25/16 Cholecalciferol (Vitamin D3) [Vitamin D3 1000 Unit Tablet] 1,000 unit PO DAILY 07/25/16 Citalopram Hydrobromide [Celexa 20 mg Tablet] 20 mg PO DAILY 07/25/16 Docusate Sodium [Colace 100 mg Capsule] 100 mg PO BID 07/25/16 Ferrous Sulfate [Feosol 325 mg Tablet] 325 mg PO DAILY 07/25/16 Furosemide [Lasix 20 mg Tablet] 20 mg PO DAILY 07/25/16 Insulin Glargine,Hum.rec.anlog [Lantus Insulin 100 Unit/1 ml 10 ml] 5 unit SUBCUT QHS 07/25/16 Insulin Lispro [Humalog Insulin 100 Unit/1 ml 3 ml Vial] 0 unit SUBCUT .SLD SCALE 07/25/16 Lorazepam [Ativan 0.5 mg Tablet] 0.5 mg PO Q12HP PRN 07/25/16 Omeprazole 40 mg PO Q6AM 07/25/16 Sodium Bicarbonate [Sodium Bicarbonate 650 mg Tablet] 650 mg PO TID 07/25/16 Sodium Polystyrene Sulfonate [Kayexalate 15 Gm/60 Ml Susp 60 Ml] 15 gm PO DAILY 07/25/16 Allergies/Adverse Reactions: No Known Allergies Allergy (Verified 07/25/16 11:38) Review of Systems ROS unobtainable: Other - She has advanced dementia,aphasia Physical Exam Vital Signs: Temp Pulse Resp BP Pulse Ox 97.8 F 75 22 H 148/99 H 100 07/26/16 07:45 07/26/16 08:02 07/26/16 08:02 07/26/16 07:45 07/26/16 08:02 Intake & Output 07/25/16 07/26/16 07/27/16 06:59 06:59 06:59 Intake Total 240 Output Total 1000 Balance -760 Weight 43.6 kg General appearance: PRESENT: mild distress Eye exam: PRESENT: PERRLA Respiratory exam: PRESENT: crackles Cardiovascular exam: PRESENT: +S1, +S2 GI/Abdominal exam: PRESENT: soft Extremities exam: PRESENT: pedal edema Neurological exam: PRESENT: alert, CN II-XII grossly intact Results Impressions: Chest CT 07/25/16 00:00 IMPRESSION: DIFFUSE GROUND-GLASS OPACITIES COMPATIBLE WITH PULMONARY EDEMA ALONG WITH SMALL BILATERAL PLEURAL EFFUSIONS. ADDITIONAL AIRSPACE DISEASE WITHIN THE RIGHT UPPER LOBE AND RIGHT MIDDLE LOBE MAY REPRESENT SUPERIMPOSED PNEUMONIA. CORRELATE WITH FEVER/ELEVATED WHITE BLOOD CELL COUNT. Chest X-Ray 07/25/16 11:02 IMPRESSION: CARDIAC ENLARGEMENT. VASCULAR CONGESTION. Assessment & Plan - Diagnosis (1) Pneumonia Qualifiers: Pneumonia type: due to unspecified organism Laterality: right Lung location: upper lobe of lung Qualified Code(s): J18.1 - Lobar pneumonia, unspecified organism Is this a current diagnosis for this admission?: YesPlan: She has a superimposed pneumonia with background of pulmonary edema due to nephrotic syndrome, she will be treated with IV cefepime and Levaquin (2) Nephrotic syndrome Is this a current diagnosis for this admission?: YesPlan: She has nephrotic syndrome, there is associated hypoalbuminemia, pulmonary edema , lower extremity swelling. 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 (4) Dementia Qualifiers: Dementia type: unspecified type Dementia behavioral disturbance: without behavioral disturbance Qualified Code(s): F03.90 - Unspecified dementia without behavioral disturbance Is this a current diagnosis for this admission?: Yes (5) Diabetes mellitus Qualifiers: Diabetes mellitus type: type 2 Diabetes mellitus complication status: with kidney complications Diabetes mellitus complication detail: with chronic kidney disease Diabetes mellitus rodent exterminator insulin use: with rodent exterminator use Chronic kidney disease stage: stage 4 (severe) Qualified Code(s): E11.22 - Type 2 diabetes mellitus with diabetic chronic kidney disease ; N18.1 - Chronic kidney disease, stage 1; Z79.4 - half-way (current) use of insulin Is this a current diagnosis for this admission?: Yes
--- NOTE | 2016-07-26 12:25 | PDOC PROGRESS REPORT ---
Subjective Progress Note for:: 07/26/16 Subjective:: Patient was seen by the bedside, she is more stable today than yesterday she was admitted because of nephrotic syndrome, pulmonary edema, wheezing Physical Exam Vital Signs: Temp Pulse Resp BP Pulse Ox 99.8 F 72 18 169/65 H 100 07/26/16 11:44 07/26/16 11:44 07/26/16 11:44 07/26/16 11:44 07/26/16 11:44 Intake & Output 07/25/16 07/26/16 07/27/16 06:59 06:59 06:59 Intake Total 240 Output Total 1000 Balance -760 Weight 43.6 kg General appearance: PRESENT: no acute distress Eye exam: PRESENT: PERRLA Respiratory exam: PRESENT: rales Cardiovascular exam: PRESENT: +S1, +S2 GI/Abdominal exam: PRESENT: soft Neurological exam: PRESENT: alert Results Impressions: Chest CT 07/25/16 00:00 IMPRESSION: DIFFUSE GROUND-GLASS OPACITIES COMPATIBLE WITH PULMONARY EDEMA ALONG WITH SMALL BILATERAL PLEURAL EFFUSIONS. ADDITIONAL AIRSPACE DISEASE WITHIN THE RIGHT UPPER LOBE AND RIGHT MIDDLE LOBE MAY REPRESENT SUPERIMPOSED PNEUMONIA. CORRELATE WITH FEVER/ELEVATED WHITE BLOOD CELL COUNT. Chest X-Ray 07/25/16 11:02 IMPRESSION: CARDIAC ENLARGEMENT. VASCULAR CONGESTION. Assessment & Plan - Diagnosis (1) Pneumonia Qualifiers: Pneumonia type: due to unspecified organism Laterality: right Lung location: upper lobe of lung Qualified Code(s): J18.1 - Lobar pneumonia, unspecified organism Is this a current diagnosis for this admission?: YesPlan: The antibiotic be continued (2) Nephrotic syndrome Is this a current diagnosis for this admission?: YesPlan: We will continue intravenous furosemide (3) Chronic kidney disease, stage IV (severe) Is this a current diagnosis for this admission?: Yes (4) Dementia Qualifiers: Dementia type: unspecified type Dementia behavioral disturbance: without behavioral disturbance Qualified Code(s): F03.90 - Unspecified dementia without behavioral disturbance Is this a current diagnosis for this admission?: Yes (5) Diabetes mellitus Qualifiers: Diabetes mellitus type: type 2 Diabetes mellitus complication status: with kidney complications Diabetes mellitus complication detail: with chronic kidney disease Diabetes mellitus long term care pharmacist insulin use: with correction use Chronic kidney disease stage: stage 4 (severe) Qualified Code(s): E11.22 - Type 2 diabetes mellitus with diabetic chronic kidney disease ; N18.1 - Chronic kidney disease, stage 1; Z79.4 - watermelon harvesting supervisor (current) use of insulin Is this a current diagnosis for this admission?: Yes
[2016-07-26 15:29] LABS: ALANINE AMINOTRANSFERASE 32 U/L (9-52); ALKALINE PHOSPHATASE 107 U/L (38-126); ANION GAP 13 (5-19); ASPARTATE AMINO TRANSFERASE 32 U/L (14-36); BILIRUBIN,DIRECT 0.4 mg/dL (0.0-0.4); BILIRUBIN,TOTAL 0.7 mg/dL (0.2-1.3); BLOOD UREA NITROGEN 36 mg/dL (7-20); CALCIUM 8.7 mg/dL (8.4-10.2); CARBON DIOXIDE 25 mmol/L (22-30); CHLORIDE 108 mmol/L (98-107); CREATININE RESULT 2.42 mg/dL (0.52-1.25); GLUCOSE 176 mg/dL (75-110); POTASSIUM 3.8 mmol/L (3.6-5.0); SODIUM 145.6 mmol/L (137-145); TOTAL PROTEIN 7.1 g/dL (6.3-8.2)
[2016-07-26 15:44] LABS: ABSOLUTE BASOPHILS # (AUTO) 0.1 10^3/uL (0.0-0.2); ABSOLUTE EOSINOPHILS # (AUTO) 0.2 10^3/uL (0.0-0.6); ABSOLUTE LYMPHOCYTES (AUTO) 1.2 10^3/uL (0.5-4.7); ABSOLUTE MONOCYTES (AUTO) 1.4 10^3/uL (0.1-1.4); ABSOLUTE NEUT (AUTO) 10.3 10^3/uL (1.7-8.2); BASOPHILS % (AUTO) 0.6 % (0-2); EOSINOPHILS % (AUTO) 1.7 % (0-6); HEMATOCRIT 31.7 % (36.0-47.0); HEMOGLOBIN 10.2 g/dL (12.0-15.5); HGB HCT DIFFERENCE -1.1; LYMPHOCYTES % (AUTO) 9.3 % (13-45); MEAN CORPUSCULAR HEMOGLOBIN 26.9 pg (27.0-33.4); MEAN CORPUSCULAR HGB CONC 32.1 g/dL (32.0-36.0); MEAN CORPUSCULAR VOLUME 84 fl (80-97); MONOCYTES % (AUTO) 10.3 % (3-13); RED BLOOD COUNT 3.78 10^6/uL (3.72-5.28); RED CELL DISTRIBUTION WIDTH 14.2 % (11.5-14.0); SEGMENTED NEUTROPHILS % (AUTO) 78.1 % (42-78); WHITE BLOOD COUNT 13.2 10^3/uL (4.0-10.5)
[2016-07-26] MEDS ORDERED: LEVOFLOXACIN 500 MG/D5W RTU 500 MG/100 ML RTUPB IV SCH (16:00)
[2016-07-26] MEDS: ATORVASTATIN CALCIUM 40 MG TABLET PO SCH (22:16)
[2016-07-26] MEDS: CEFEPIME HCL 0.5 GM in DEXTROSE 5%-WATER 25 ML IV SCH (22:17)
[2016-07-27] MEDS: IPRATROPIUM/ALBUTEROL 0.5-2.5 MG/3 ML AMPUL NEB PRN (00:09)
[2016-07-27 05:25] LABS: ABSOLUTE BASOPHILS # (AUTO) 0.1 10^3/uL (0.0-0.2); ABSOLUTE EOSINOPHILS # (AUTO) 0.3 10^3/uL (0.0-0.6); ABSOLUTE LYMPHOCYTES (AUTO) 1.9 10^3/uL (0.5-4.7); ABSOLUTE MONOCYTES (AUTO) 1.2 10^3/uL (0.1-1.4); EOSINOPHILS % (AUTO) 2.5 % (0-6); HEMATOCRIT 31.6 % (36.0-47.0); HEMOGLOBIN 10.3 g/dL (12.0-15.5); HGB HCT DIFFERENCE -0.7; MEAN CORPUSCULAR HEMOGLOBIN 26.9 pg (27.0-33.4); MEAN CORPUSCULAR HGB CONC 32.5 g/dL (32.0-36.0); MEAN CORPUSCULAR VOLUME 83 fl (80-97); MONOCYTES % (AUTO) 9.6 % (3-13); RED BLOOD COUNT 3.82 10^6/uL (3.72-5.28); SEGMENTED NEUTROPHILS % (AUTO) 71.9 % (42-78); WHITE BLOOD COUNT 12.5 10^3/uL (4.0-10.5)
[2016-07-27 05:37] LABS: ALANINE AMINOTRANSFERASE 36 U/L (9-52); ALBUMIN 3.2 g/dL (3.5-5.0); ALKALINE PHOSPHATASE 114 U/L (38-126); ANION GAP 14 (5-19); ASPARTATE AMINO TRANSFERASE 27 U/L (14-36); BILIRUBIN,DIRECT 0.4 mg/dL (0.0-0.4); BILIRUBIN,TOTAL 0.7 mg/dL (0.2-1.3); BLOOD UREA NITROGEN 32 mg/dL (7-20); CALCIUM 8.7 mg/dL (8.4-10.2); CARBON DIOXIDE 26 mmol/L (22-30); CHLORIDE 105 mmol/L (98-107); CHOLESTEROL 157.72 mg/dL (0-200); CREATININE RESULT 2.47 mg/dL (0.52-1.25); Direct HDL 41 mg/dL (>40); GLUCOSE 142 mg/dL (75-110); POTASSIUM 3.1 mmol/L (3.6-5.0); SODIUM 145.4 mmol/L (137-145); TOTAL PROTEIN 7.3 g/dL (6.3-8.2); TRIGLYCERIDES 152 mg/dL (<150)
[2016-07-27 05:48] LABS: DIRECT LDL 69 mg/dL (<100)
[2016-07-27 05:53] LABS: VLDL CHOLESTEROL 30.4 mg/dL (10-31)
[2016-07-27] MEDS: HEPARIN SOD (PORCINE) 5,000 UNIT/ML 1 ML SYRINGE SUBCUT SCH ×3 (06:01→22:03)
--- NOTE | 2016-07-27 09:43 | EKG REPORT ---
SEVERITY:- ABNORMAL ECG - SINUS RHYTHM RIGHT BUNDLE BRANCH BLOCK : Confirmed by: Toña Matthews 27-Jul-2016 09:42:12
[2016-07-27] MEDS: FUROSEMIDE INJ/PF 40 MG/4 ML SDV IV SCH (11:02)
[2016-07-27] MEDS: CLOPIDOGREL BISULFATE 75 MG TABLET PO SCH (11:02)
[2016-07-27] MEDS ORDERED: LEVOFLOXACIN 250 MG/D5W RTU 250 MG/50 ML RTUPB IV SCH (18:00)
--- NOTE | 2016-07-27 19:53 | PDOC PROGRESS REPORT ---
Subjective Progress Note for:: 07/27/16 Subjective:: She was seen by the bedside she seems to be improving Physical Exam Vital Signs: Temp Pulse Resp BP Pulse Ox 98.2 F 70 16 187/61 H 97 07/27/16 16:53 07/27/16 18:35 07/27/16 18:35 07/27/16 16:53 07/27/16 16:53 Intake & Output 07/26/16 07/27/16 07/28/16 06:59 06:59 06:59 Intake Total 240 1105 343 Output Total 1000 1400 900 Balance -760 -295 -557 Weight 43.6 kg 43.6 kg General appearance: PRESENT: no acute distress Eye exam: PRESENT: PERRLA Respiratory exam: PRESENT: clear to auscultation juana Cardiovascular exam: PRESENT: +S1, +S2 GI/Abdominal exam: PRESENT: soft Neurological exam: PRESENT: alert Results Laboratory Results: 07/27/16 04:43 07/27/16 04:43 07/27/16 07/27/16 04:43 04:43 WBC 12.5 H RBC 3.82 Hgb 10.3 L Hct 31.6 L MCV 83 MCH 26.9 L MCHC 32.5 RDW 14.0 Plt Count 350 Seg Neutrophils % 71.9 Lymphocytes % 15.0 Monocytes % 9.6 Eosinophils % 2.5 Basophils % 1.0 Absolute Neutrophils 9.0 H Absolute Lymphocytes 1.9 Absolute Monocytes 1.2 Absolute Eosinophils 0.3 Absolute Basophils 0.1 Sodium 145.4 H Potassium 3.1 L Chloride 105 Carbon Dioxide 26 Anion Gap 14 BUN 32 H Creatinine 2.47 H Est GFR ( Amer) 22 L Est GFR (Non-Af Amer) 18 L Glucose 142 H Calcium 8.7 Total Bilirubin 0.7 AST 27 ALT 36 Alkaline Phosphatase 114 Total Protein 7.3 Albumin 3.2 L Triglycerides 152 H Cholesterol 157.72 LDL Cholesterol Direct 69 VLDL Cholesterol 30.4 HDL Cholesterol 41 Impressions: Chest CT 07/25/16 00:00 IMPRESSION: DIFFUSE GROUND-GLASS OPACITIES COMPATIBLE WITH PULMONARY EDEMA ALONG WITH SMALL BILATERAL PLEURAL EFFUSIONS. ADDITIONAL AIRSPACE DISEASE WITHIN THE RIGHT UPPER LOBE AND RIGHT MIDDLE LOBE MAY REPRESENT SUPERIMPOSED PNEUMONIA. CORRELATE WITH FEVER/ELEVATED WHITE BLOOD CELL COUNT. Chest X-Ray 07/25/16 11:02 IMPRESSION: CARDIAC ENLARGEMENT. VASCULAR CONGESTION. Assessment & Plan - Diagnosis (1) Pneumonia Qualifiers: Pneumonia type: due to unspecified organism Laterality: right Lung location: upper lobe of lung Qualified Code(s): J18.1 - Lobar pneumonia, unspecified organism Is this a current diagnosis for this admission?: Yes (2) Nephrotic syndrome Is this a current diagnosis for this admission?: Yes (3) Chronic kidney disease, stage IV (severe) Is this a current diagnosis for this admission?: Yes (4) Dementia Qualifiers: Dementia type: unspecified type Dementia behavioral disturbance: without behavioral disturbance Qualified Code(s): F03.90 - Unspecified dementia without behavioral disturbance Is this a current diagnosis for this admission?: Yes (5) Diabetes mellitus Qualifiers: Diabetes mellitus type: type 2 Diabetes mellitus complication status: with kidney complications Diabetes mellitus complication detail: with chronic kidney disease Diabetes mellitus long term care phlebotomist insulin use: with long term care phlebotomist use Chronic kidney disease stage: stage 4 (severe) Qualified Code(s): E11.22 - Type 2 diabetes mellitus with diabetic chronic kidney disease ; N18.1 - Chronic kidney disease, stage 1; Z79.4 - halfway (current) use of insulin Is this a current diagnosis for this admission?: Yes
[2016-07-27] MEDS: INSULIN LISPRO 100 UNIT/ML 3 ML VIAL SUBCUT PRN (22:03)
[2016-07-27] MEDS: CEFEPIME HCL 0.5 GM in DEXTROSE 5%-WATER 25 ML IV SCH (22:11)
[2016-07-27] MEDS: ATORVASTATIN CALCIUM 40 MG TABLET PO SCH (22:14)
[2016-07-28] MEDS: HEPARIN SOD (PORCINE) 5,000 UNIT/ML 1 ML SYRINGE SUBCUT SCH ×3 (05:50→22:39)
[2016-07-28] MEDS: FUROSEMIDE INJ/PF 40 MG/4 ML SDV IV SCH (10:04)
[2016-07-28] MEDS: CLOPIDOGREL BISULFATE 75 MG TABLET PO SCH (10:11)
[2016-07-28] MEDS: INSULIN LISPRO 100 UNIT/ML 3 ML VIAL SUBCUT PRN (16:21)
--- NOTE | 2016-07-28 19:32 | PDOC PROGRESS REPORT ---
Subjective Progress Note for:: 07/28/16 Subjective:: She she was seen by the bedside, she was admitted because of acute pulmonary edema due to nephrotic syndrome associated with pneumonia Physical Exam Vital Signs: Temp Pulse Resp BP Pulse Ox 98.3 F 83 17 189/53 H 97 07/28/16 15:23 07/28/16 18:14 07/28/16 18:14 07/28/16 15:23 07/28/16 15:23 Intake & Output 07/27/16 07/28/16 07/29/16 06:59 06:59 06:59 Intake Total 1105 698 430 Output Total 1400 1400 575 Balance -295 -702 -145 Weight 43.6 kg 43.6 kg General appearance: PRESENT: no acute distress Eye exam: PRESENT: PERRLA Respiratory exam: PRESENT: clear to auscultation juana Cardiovascular exam: PRESENT: +S1, +S2 GI/Abdominal exam: PRESENT: soft Neurological exam: PRESENT: alert Results Laboratory Results: 07/27/16 04:43 07/27/16 04:43 Impressions: Chest CT 07/25/16 00:00 IMPRESSION: DIFFUSE GROUND-GLASS OPACITIES COMPATIBLE WITH PULMONARY EDEMA ALONG WITH SMALL BILATERAL PLEURAL EFFUSIONS. ADDITIONAL AIRSPACE DISEASE WITHIN THE RIGHT UPPER LOBE AND RIGHT MIDDLE LOBE MAY REPRESENT SUPERIMPOSED PNEUMONIA. CORRELATE WITH FEVER/ELEVATED WHITE BLOOD CELL COUNT. Chest X-Ray 07/25/16 11:02 IMPRESSION: CARDIAC ENLARGEMENT. VASCULAR CONGESTION. Assessment & Plan - Diagnosis (1) Pneumonia Qualifiers: Pneumonia type: due to unspecified organism Laterality: right Lung location: upper lobe of lung Qualified Code(s): J18.1 - Lobar pneumonia, unspecified organism Is this a current diagnosis for this admission?: Yes (2) Nephrotic syndrome Is this a current diagnosis for this admission?: Yes (3) Chronic kidney disease, stage IV (severe) Is this a current diagnosis for this admission?: Yes (4) Dementia Qualifiers: Dementia type: unspecified type Dementia behavioral disturbance: without behavioral disturbance Qualified Code(s): F03.90 - Unspecified dementia without behavioral disturbance Is this a current diagnosis for this admission?: Yes (5) Diabetes mellitus Qualifiers: Diabetes mellitus type: type 2 Diabetes mellitus complication status: with kidney complications Diabetes mellitus complication detail: with chronic kidney disease Diabetes mellitus director long term care insulin use: with snf use Chronic kidney disease stage: stage 4 (severe) Qualified Code(s): E11.22 - Type 2 diabetes mellitus with diabetic chronic kidney disease ; N18.1 - Chronic kidney disease, stage 1; Z79.4 - exterminator helper termite (current) use of insulin Is this a current diagnosis for this admission?: Yes - Plan Summary Plan Summary: She will continue IV antibiotic, IV furosemide
[2016-07-28 19:36] LABS: ABSOLUTE BASOPHILS # (AUTO) 0.1 10^3/uL (0.0-0.2); ABSOLUTE EOSINOPHILS # (AUTO) 0.1 10^3/uL (0.0-0.6); ABSOLUTE LYMPHOCYTES (AUTO) 1.4 10^3/uL (0.5-4.7); ABSOLUTE MONOCYTES (AUTO) 1.5 10^3/uL (0.1-1.4); ABSOLUTE NEUT (AUTO) 10.5 10^3/uL (1.7-8.2); BASOPHILS % (AUTO) 0.5 % (0-2); EOSINOPHILS % (AUTO) 0.6 % (0-6); HEMATOCRIT 35.3 % (36.0-47.0); HEMOGLOBIN 11.3 g/dL (12.0-15.5); HGB HCT DIFFERENCE -1.4; LYMPHOCYTES % (AUTO) 10.4 % (13-45); MEAN CORPUSCULAR HEMOGLOBIN 26.4 pg (27.0-33.4); MEAN CORPUSCULAR HGB CONC 32.1 g/dL (32.0-36.0); MEAN CORPUSCULAR VOLUME 82 fl (80-97); MONOCYTES % (AUTO) 11.2 % (3-13); RED CELL DISTRIBUTION WIDTH 13.9 % (11.5-14.0); SEGMENTED NEUTROPHILS % (AUTO) 77.3 % (42-78); WHITE BLOOD COUNT 13.6 10^3/uL (4.0-10.5)
[2016-07-28 19:58] LABS: ALANINE AMINOTRANSFERASE 31 U/L (9-52); ALBUMIN 3.3 g/dL (3.5-5.0); ALKALINE PHOSPHATASE 120 U/L (38-126); ANION GAP 14 (5-19); ASPARTATE AMINO TRANSFERASE 29 U/L (14-36); BILIRUBIN,DIRECT 0.4 mg/dL (0.0-0.4); BILIRUBIN,TOTAL 0.5 mg/dL (0.2-1.3); BLOOD UREA NITROGEN 41 mg/dL (7-20); CALCIUM 9.2 mg/dL (8.4-10.2); CARBON DIOXIDE 26 mmol/L (22-30); CHLORIDE 106 mmol/L (98-107); CREATININE RESULT 2.53 mg/dL (0.52-1.25); GLUCOSE 73 mg/dL (75-110); SODIUM 145.8 mmol/L (137-145); TOTAL PROTEIN 7.5 g/dL (6.3-8.2)
[2016-07-28] MEDS: CEFEPIME HCL 0.5 GM in DEXTROSE 5%-WATER 25 ML IV SCH (22:40)
[2016-07-28] MEDS: POTASSIUM CHLORIDE 10 MEQ TABLET.SA PO SCH (22:44)
[2016-07-28] MEDS: ATORVASTATIN CALCIUM 40 MG TABLET PO SCH (23:00)
[2016-07-29] MEDS: POTASSIUM CHLORIDE 10 MEQ TABLET.SA PO SCH (03:06)
[2016-07-29] MEDS ORDERED: POTASSIUM CHLORIDE 20 MEQ/15 ML UDCUP PO ONE (03:15)
[2016-07-29 05:05] LABS: ABSOLUTE BASOPHILS # (AUTO) 0.1 10^3/uL (0.0-0.2); ABSOLUTE EOSINOPHILS # (AUTO) 0.1 10^3/uL (0.0-0.6); ABSOLUTE LYMPHOCYTES (AUTO) 1.7 10^3/uL (0.5-4.7); ABSOLUTE MONOCYTES (AUTO) 1.3 10^3/uL (0.1-1.4); ABSOLUTE NEUT (AUTO) 11.8 10^3/uL (1.7-8.2); BASOPHILS % (AUTO) 0.6 % (0-2); EOSINOPHILS % (AUTO) 0.4 % (0-6); HEMATOCRIT 35.7 % (36.0-47.0); HEMOGLOBIN 11.6 g/dL (12.0-15.5); HGB HCT DIFFERENCE -0.9; LYMPHOCYTES % (AUTO) 11.1 % (13-45); MEAN CORPUSCULAR HEMOGLOBIN 26.9 pg (27.0-33.4); MEAN CORPUSCULAR HGB CONC 32.4 g/dL (32.0-36.0); MEAN CORPUSCULAR VOLUME 83 fl (80-97); MONOCYTES % (AUTO) 8.6 % (3-13); RED BLOOD COUNT 4.31 10^6/uL (3.72-5.28); SEGMENTED NEUTROPHILS % (AUTO) 79.3 % (42-78)
[2016-07-29 05:26] LABS: ALANINE AMINOTRANSFERASE 30 U/L (9-52); ALBUMIN 3.3 g/dL (3.5-5.0); ALKALINE PHOSPHATASE 121 U/L (38-126); ANION GAP 18 (5-19); ASPARTATE AMINO TRANSFERASE 32 U/L (14-36); BILIRUBIN,DIRECT 0.4 mg/dL (0.0-0.4); BILIRUBIN,TOTAL 0.8 mg/dL (0.2-1.3); BLOOD UREA NITROGEN 39 mg/dL (7-20); CALCIUM 9.3 mg/dL (8.4-10.2); CARBON DIOXIDE 23 mmol/L (22-30); CHLORIDE 107 mmol/L (98-107); CREATININE RESULT 2.53 mg/dL (0.52-1.25); GLUCOSE 208 mg/dL (75-110); SODIUM 147.6 mmol/L (137-145); TOTAL PROTEIN 7.7 g/dL (6.3-8.2)
[2016-07-29 05:36] LABS: POTASSIUM 4.6 mmol/L (3.6-5.0)
[2016-07-29] MEDS: HEPARIN SOD (PORCINE) 5,000 UNIT/ML 1 ML SYRINGE SUBCUT SCH ×3 (06:22→23:31)
[2016-07-29] MEDS ORDERED: ACETAMINOPHEN 325 MG TABLET PO PRN (10:00)
[2016-07-29] MEDS: FUROSEMIDE INJ/PF 40 MG/4 ML SDV IV SCH (10:16)
[2016-07-29] MEDS: CLOPIDOGREL BISULFATE 75 MG TABLET PO SCH (10:16)
[2016-07-29] MEDS: ACETAMINOPHEN 325 MG SUPP.RECT PR PRN ×2 (13:53→20:44)
[2016-07-29] MEDS ORDERED: LORAZEPAM 0.5 MG TABLET PO PRN (16:13)
--- NOTE | 2016-07-29 16:32 | PDOC PROGRESS REPORT ---
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 Physical Exam Vital Signs: Temp Pulse Resp BP Pulse Ox 100.4 F 104 H 15 120/107 H 100 07/29/16 11:54 07/29/16 11:30 07/29/16 11:54 07/29/16 11:54 07/29/16 11:54 Intake & Output 07/28/16 07/29/16 07/30/16 06:59 06:59 06:59 Intake Total 698 485 Output Total 1400 1175 Balance -702 -690 Weight 43.6 kg General appearance: PRESENT: no acute distress Eye exam: PRESENT: PERRLA Respiratory exam: PRESENT: clear to auscultation juana Cardiovascular exam: PRESENT: +S1, +S2 GI/Abdominal exam: PRESENT: soft Neurological exam: PRESENT: alert Results Laboratory Results: 07/29/16 04:11 07/29/16 04:11 07/28/16 07/28/16 07/29/16 19:28 19:28 04:11 WBC 13.6 H 15.0 H RBC 4.30 4.31 Hgb 11.3 L 11.6 L Hct 35.3 L 35.7 L MCV 82 83 MCH 26.4 L 26.9 L MCHC 32.1 32.4 RDW 13.9 14.0 Plt Count 398 425 Seg Neutrophils % 77.3 79.3 H Lymphocytes % 10.4 L 11.1 L Monocytes % 11.2 8.6 Eosinophils % 0.6 0.4 Basophils % 0.5 0.6 Absolute Neutrophils 10.5 H 11.8 H Absolute Lymphocytes 1.4 1.7 Absolute Monocytes 1.5 H 1.3 Absolute Eosinophils 0.1 0.1 Absolute Basophils 0.1 0.1 Sodium 145.8 H Potassium 3.0 L* Chloride 106 Carbon Dioxide 26 Anion Gap 14 BUN 41 H Creatinine 2.53 H Est GFR ( Amer) 22 L Est GFR (Non-Af Amer) 18 L Glucose 73 L Calcium 9.2 Total Bilirubin 0.5 AST 29 ALT 31 Alkaline Phosphatase 120 Total Protein 7.5 Albumin 3.3 L 07/29/16 04:11 WBC RBC Hgb Hct MCV MCH MCHC RDW Plt Count Seg Neutrophils % Lymphocytes % Monocytes % Eosinophils % Basophils % Absolute Neutrophils Absolute Lymphocytes Absolute Monocytes Absolute Eosinophils Absolute Basophils Sodium 147.6 H Potassium 4.6 D Chloride 107 Carbon Dioxide 23 Anion Gap 18 BUN 39 H Creatinine 2.53 H Est GFR ( Amer) 22 L Est GFR (Non-Af Amer) 18 L Glucose 208 H Calcium 9.3 Total Bilirubin 0.8 AST 32 ALT 30 Alkaline Phosphatase 121 Total Protein 7.7 Albumin 3.3 L Impressions: Chest CT 07/25/16 00:00 IMPRESSION: DIFFUSE GROUND-GLASS OPACITIES COMPATIBLE WITH PULMONARY EDEMA ALONG WITH SMALL BILATERAL PLEURAL EFFUSIONS. ADDITIONAL AIRSPACE DISEASE WITHIN THE RIGHT UPPER LOBE AND RIGHT MIDDLE LOBE MAY REPRESENT SUPERIMPOSED PNEUMONIA. CORRELATE WITH FEVER/ELEVATED WHITE BLOOD CELL COUNT. Chest X-Ray 07/25/16 11:02 IMPRESSION: CARDIAC ENLARGEMENT. VASCULAR CONGESTION. Assessment & Plan - Diagnosis (1) Pneumonia Qualifiers: Pneumonia type: due to unspecified organism Laterality: right Lung location: upper lobe of lung Qualified Code(s): J18.1 - Lobar pneumonia, unspecified organism Is this a current diagnosis for this admission?: Yes (2) Nephrotic syndrome Is this a current diagnosis for this admission?: Yes (3) Chronic kidney disease, stage IV (severe) Is this a current diagnosis for this admission?: Yes (4) Dementia Qualifiers: Dementia type: unspecified type Dementia behavioral disturbance: without behavioral disturbance Qualified Code(s): F03.90 - Unspecified dementia without behavioral disturbance Is this a current diagnosis for this admission?: Yes (5) Diabetes mellitus Qualifiers: Diabetes mellitus type: type 2 Diabetes mellitus complication status: with kidney complications Diabetes mellitus complication detail: with chronic kidney disease Diabetes mellitus nursing home insulin use: with nursing home use Chronic kidney disease stage: stage 4 (severe) Qualified Code(s): E11.22 - Type 2 diabetes mellitus with diabetic chronic kidney disease ; N18.1 - Chronic kidney disease, stage 1; Z79.4 - senior care (current) use of insulin Is this a current diagnosis for this admission?: Yes - Plan Summary Plan Summary: She will continue IV antibiotic, the blood pressure is elevated today she will be started on amlodipine, Coreg.
[2016-07-29 16:55] LABS: ABSOLUTE BASOPHILS # (AUTO) 0.1 10^3/uL (0.0-0.2); ABSOLUTE LYMPHOCYTES (AUTO) 1.8 10^3/uL (0.5-4.7); ABSOLUTE MONOCYTES (AUTO) 1.4 10^3/uL (0.1-1.4); ABSOLUTE NEUT (AUTO) 13.3 10^3/uL (1.7-8.2); BASOPHILS % (AUTO) 0.6 % (0-2); HEMATOCRIT 37.1 % (36.0-47.0); HGB HCT DIFFERENCE -1.1; LYMPHOCYTES % (AUTO) 10.6 % (13-45); MEAN CORPUSCULAR HEMOGLOBIN 26.6 pg (27.0-33.4); MEAN CORPUSCULAR HGB CONC 32.2 g/dL (32.0-36.0); MEAN CORPUSCULAR VOLUME 83 fl (80-97); MONOCYTES % (AUTO) 8.6 % (3-13); RED BLOOD COUNT 4.49 10^6/uL (3.72-5.28); SEGMENTED NEUTROPHILS % (AUTO) 80.2 % (42-78); WHITE BLOOD COUNT 16.6 10^3/uL (4.0-10.5)
[2016-07-29] MEDS ORDERED: LANSOPRAZOLE 30 MG TAB.RAP.DR PO ONE (17:00)
[2016-07-29] MEDS ORDERED: AMLODIPINE BESYLATE 10 MG TABLET PO ONE (17:00)
[2016-07-29] MEDS ORDERED: LOSARTAN POTASSIUM 50 MG TABLET PO ONE (17:00)
[2016-07-29] MEDS ORDERED: CARVEDILOL 6.25 MG TABLET PO ONE (17:00)
[2016-07-29] MEDS: SODIUM BICARBONATE 650 MG TABLET PO SCH (17:54)
[2016-07-29] MEDS: CITALOPRAM HYDROBROMIDE 20 MG TABLET PO SCH (17:54)
[2016-07-29] MEDS: DOCUSATE SODIUM 100 MG CAPSULE PO SCH (17:54)
[2016-07-29] MEDS: FERROUS SULFATE 325 MG TABLET PO SCH (17:54)
[2016-07-29] MEDS: CHOLECALCIFEROL (D3) 1,000 UNIT TABLET PO SCH (17:54)
[2016-07-29] MEDS ORDERED: BUDESONIDE/FORMOTEROL 160-4.5 MCG 60 PUFF/6 GM MDI IH ONE (18:00)
[2016-07-29] MEDS ORDERED: LEVOFLOXACIN 250 MG TABLET PO SCH (18:00)
[2016-07-29] MEDS: ENALAPRILAT DIHYDRATE INJ/PF 2.5 MG/2 ML SDV IV SCH (18:54)
[2016-07-29] MEDS ORDERED: 1/2 NORMAL SALINE 1,000 ML IV PRN (21:04)
[2016-07-29] MEDS ORDERED: DEXTROSE 5%-1/2 NORMAL SALINE 1,000 ML IV PRN (21:06)
[2016-07-29] MEDS ORDERED: INSULIN GLARGINE,HUM.REC.ANLOG 1,000 UNIT/10 ML UNIT SUBCUT SCH (22:00)
[2016-07-29] MEDS: LEVOFLOXACIN 250 MG/D5W RTU 250 MG/50 ML RTUPB IV SCH (22:10)
[2016-07-29] MEDS ORDERED: CEFEPIME INJ 1 GM VIAL ONE (22:22)
[2016-07-29] MEDS: CARVEDILOL 6.25 MG TABLET PO SCH (22:45)
[2016-07-29] MEDS: ATORVASTATIN CALCIUM 40 MG TABLET PO SCH (22:45)
[2016-07-29] MEDS: BUDESONIDE/FORMOTEROL 160-4.5 MCG 60 PUFF/6 GM MDI IH SCH (22:45)
[2016-07-29 23:01] LABS: URINE CREATININE 93.5 mg/dL (15-278)
[2016-07-29 23:11] LABS: URINE PROTEIN 776.2 mg/dL (<12)
[2016-07-30] MEDS: ENALAPRILAT DIHYDRATE INJ/PF 2.5 MG/2 ML SDV IV SCH ×4 (00:24→17:35)
[2016-07-30] MEDS: LANSOPRAZOLE 30 MG TAB.RAP.DR PO SCH (05:29)
[2016-07-30] MEDS: HEPARIN SOD (PORCINE) 5,000 UNIT/ML 1 ML SYRINGE SUBCUT SCH ×3 (05:30→23:17)
[2016-07-30 06:46] LABS: ABSOLUTE BASOPHILS # (AUTO) 0.1 10^3/uL (0.0-0.2); ABSOLUTE LYMPHOCYTES (AUTO) 1.9 10^3/uL (0.5-4.7); ABSOLUTE MONOCYTES (AUTO) 1.3 10^3/uL (0.1-1.4); ABSOLUTE NEUT (AUTO) 11.9 10^3/uL (1.7-8.2); BASOPHILS % (AUTO) 0.8 % (0-2); EOSINOPHILS % (AUTO) 0.1 % (0-6); HEMOGLOBIN 11.7 g/dL (12.0-15.5); HGB HCT DIFFERENCE -0.9; LYMPHOCYTES % (AUTO) 12.4 % (13-45); MEAN CORPUSCULAR HGB CONC 32.5 g/dL (32.0-36.0); MEAN CORPUSCULAR VOLUME 83 fl (80-97); MONOCYTES % (AUTO) 8.8 % (3-13); RED BLOOD COUNT 4.32 10^6/uL (3.72-5.28); RED CELL DISTRIBUTION WIDTH 14.3 % (11.5-14.0); SEGMENTED NEUTROPHILS % (AUTO) 77.9 % (42-78); WHITE BLOOD COUNT 15.3 10^3/uL (4.0-10.5)
[2016-07-30] MEDS ORDERED: VANCOMYCIN HCL 0 MG in DEXTROSE 5%-WATER 250 ML IV NR (08:45)
[2016-07-30 09:28] LABS: PROTHROMBIN TIME 15.3 SEC (11.4-15.4)
[2016-07-30 09:29] LABS: PARTIAL THROMBOPLASTIN TIME 68.8 SEC (23.5-35.8)
[2016-07-30] MEDS: SODIUM BICARBONATE 650 MG TABLET PO SCH ×3 (10:00→17:35)
[2016-07-30] MEDS: FUROSEMIDE INJ/PF 40 MG/4 ML SDV IV SCH (11:49)
[2016-07-30] MEDS: VANCOMYCIN HCL 750 MG in DEXTROSE 5%-WATER 250 ML IV SCH (11:59)
[2016-07-30] MEDS: BUDESONIDE/FORMOTEROL 160-4.5 MCG 60 PUFF/6 GM MDI IH SCH ×2 (16:13→22:57)
[2016-07-30] MEDS: AMLODIPINE BESYLATE 10 MG TABLET PO SCH (16:13)
[2016-07-30] MEDS: CLOPIDOGREL BISULFATE 75 MG TABLET PO SCH (16:13)
[2016-07-30] MEDS: CARVEDILOL 6.25 MG TABLET PO SCH ×2 (16:13→22:57)
[2016-07-30] MEDS: DOCUSATE SODIUM 100 MG CAPSULE PO SCH ×2 (16:13→17:35)
[2016-07-30] MEDS: LOSARTAN POTASSIUM 50 MG TABLET PO SCH (16:13)
[2016-07-30] MEDS: CHOLECALCIFEROL (D3) 1,000 UNIT TABLET PO SCH (17:35)
[2016-07-30] MEDS: CITALOPRAM HYDROBROMIDE 20 MG TABLET PO SCH (17:35)
[2016-07-30] MEDS: FERROUS SULFATE 325 MG TABLET PO SCH (17:35)
[2016-07-30] MEDS ORDERED: PHENYTOIN SODIUM INJ/PF 250 MG/5 ML SDV IV ONE (18:48)
--- NOTE | 2016-07-30 21:06 | PDOC PROGRESS REPORT ---
Subjective Progress Note for:: 07/30/16 Subjective:: Patient was seen by the bedside, she has extremely rigid tonicity, she had a witnessed seizure . lumbar puncture could not be done because she is on plavix . Vancomycin was added to drug regimen empirically, she is presently on cefepime and Levaquin, patient is nonverbal Physical Exam Vital Signs: Temp Pulse Resp BP Pulse Ox 99.9 F 82 14 147/81 H 99 07/30/16 19:35 07/30/16 19:35 07/30/16 19:35 07/30/16 19:35 07/30/16 19:35 Intake & Output 07/29/16 07/30/16 07/31/16 06:59 06:59 06:59 Intake Total 101 527 5434 Output Total 1175 650 Balance -774 88 0532 General appearance: PRESENT: severe distress Eye exam: PRESENT: PERRLA Respiratory exam: PRESENT: rhonchi Cardiovascular exam: PRESENT: +S1, +S2 Neurological exam: PRESENT: alert, aphasic, other - rigid tonicity Results Laboratory Results: 07/30/16 05:38 07/29/16 04:11 07/30/16 07/30/16 05:38 14:06 WBC 15.3 H RBC 4.32 Hgb 11.7 L Hct 36.0 MCV 83 MCH 27.0 MCHC 32.5 RDW 14.3 H Plt Count 424 Seg Neutrophils % 77.9 Lymphocytes % 12.4 L Monocytes % 8.8 Eosinophils % 0.1 Basophils % 0.8 Absolute Neutrophils 11.9 H Absolute Lymphocytes 1.9 Absolute Monocytes 1.3 Absolute Eosinophils 0.0 Absolute Basophils 0.1 Magnesium 1.8 Impressions: Chest CT 07/25/16 00:00 IMPRESSION: DIFFUSE GROUND-GLASS OPACITIES COMPATIBLE WITH PULMONARY EDEMA ALONG WITH SMALL BILATERAL PLEURAL EFFUSIONS. ADDITIONAL AIRSPACE DISEASE WITHIN THE RIGHT UPPER LOBE AND RIGHT MIDDLE LOBE MAY REPRESENT SUPERIMPOSED PNEUMONIA. CORRELATE WITH FEVER/ELEVATED WHITE BLOOD CELL COUNT. Chest X-Ray 07/25/16 11:02 IMPRESSION: CARDIAC ENLARGEMENT. VASCULAR CONGESTION. Assessment & Plan - Diagnosis (1) Pneumonia Qualifiers: Pneumonia type: due to unspecified organism Laterality: right Lung location: upper lobe of lung Qualified Code(s): J18.1 - Lobar pneumonia, unspecified organism Is this a current diagnosis for this admission?: Yes (2) Nephrotic syndrome Is this a current diagnosis for this admission?: Yes (3) Chronic kidney disease, stage IV (severe) Is this a current diagnosis for this admission?: Yes (4) Dementia Qualifiers: Dementia type: unspecified type Dementia behavioral disturbance: without behavioral disturbance Qualified Code(s): F03.90 - Unspecified dementia without behavioral disturbance Is this a current diagnosis for this admission?: Yes (5) Diabetes mellitus Qualifiers: Diabetes mellitus type: type 2 Diabetes mellitus complication status: with kidney complications Diabetes mellitus complication detail: with chronic kidney disease Diabetes mellitus terminal block assembler insulin use: with care home use Chronic kidney disease stage: stage 4 (severe) Qualified Code(s): E11.22 - Type 2 diabetes mellitus with diabetic chronic kidney disease ; N18.1 - Chronic kidney disease, stage 1; Z79.4 - jail (current) use of insulin Is this a current diagnosis for this admission?: Yes (6) New onset seizure Is this a current diagnosis for this admission?: YesPlan: loading dose dilantin was given
[2016-07-30] MEDS: ATORVASTATIN CALCIUM 40 MG TABLET PO SCH (22:57)
[2016-07-30] MEDS: CEFEPIME HCL 0.5 GM in DEXTROSE 5%-WATER 25 ML IV SCH ×3 (23:16)
[2016-07-30] MEDS: INSULIN GLARGINE,HUM.REC.ANLOG 1,000 UNIT/10 ML UNIT SUBCUT SCH (23:17)
[2016-07-31] MEDS: ENALAPRILAT DIHYDRATE INJ/PF 2.5 MG/2 ML SDV IV SCH ×4 (01:56→18:00)
[2016-07-31] MEDS: LANSOPRAZOLE 30 MG TAB.RAP.DR PO SCH (05:41)
[2016-07-31] MEDS: HEPARIN SOD (PORCINE) 5,000 UNIT/ML 1 ML SYRINGE SUBCUT SCH ×3 (06:39→22:50)
[2016-07-31] MEDS: FUROSEMIDE INJ/PF 40 MG/4 ML SDV IV SCH (10:28)
[2016-07-31] MEDS: DOCUSATE SODIUM 100 MG CAPSULE PO SCH ×2 (10:36→18:35)
[2016-07-31] MEDS: LOSARTAN POTASSIUM 50 MG TABLET PO SCH (10:36)
[2016-07-31] MEDS: AMLODIPINE BESYLATE 10 MG TABLET PO SCH (10:36)
[2016-07-31] MEDS: CARVEDILOL 6.25 MG TABLET PO SCH ×2 (10:36→22:50)
[2016-07-31] MEDS: BUDESONIDE/FORMOTEROL 160-4.5 MCG 60 PUFF/6 GM MDI IH SCH ×2 (10:36→22:50)
[2016-07-31] MEDS: SODIUM BICARBONATE 650 MG TABLET PO SCH ×3 (10:36→18:35)
[2016-07-31] MEDS: CLOPIDOGREL BISULFATE 75 MG TABLET PO SCH (10:36)
[2016-07-31 11:08] LABS: ABSOLUTE BASOPHILS # (AUTO) 0.1 10^3/uL (0.0-0.2); ABSOLUTE EOSINOPHILS # (AUTO) 0.1 10^3/uL (0.0-0.6); ABSOLUTE LYMPHOCYTES (AUTO) 1.6 10^3/uL (0.5-4.7); ABSOLUTE MONOCYTES (AUTO) 0.9 10^3/uL (0.1-1.4); ABSOLUTE NEUT (AUTO) 9.5 10^3/uL (1.7-8.2); BASOPHILS % (AUTO) 1.2 % (0-2); EOSINOPHILS % (AUTO) 0.9 % (0-6); HEMATOCRIT 38.5 % (36.0-47.0); HEMOGLOBIN 12.1 g/dL (12.0-15.5); HGB HCT DIFFERENCE -2.2; LYMPHOCYTES % (AUTO) 12.8 % (13-45); MEAN CORPUSCULAR HEMOGLOBIN 26.5 pg (27.0-33.4); MEAN CORPUSCULAR HGB CONC 31.6 g/dL (32.0-36.0); MEAN CORPUSCULAR VOLUME 84 fl (80-97); MONOCYTES % (AUTO) 7.6 % (3-13); RED BLOOD COUNT 4.59 10^6/uL (3.72-5.28); RED CELL DISTRIBUTION WIDTH 14.6 % (11.5-14.0); SEGMENTED NEUTROPHILS % (AUTO) 77.5 % (42-78); WHITE BLOOD COUNT 12.3 10^3/uL (4.0-10.5)
[2016-07-31 11:28] LABS: ALANINE AMINOTRANSFERASE 27 U/L (9-52); ALBUMIN 3.2 g/dL (3.5-5.0); ALKALINE PHOSPHATASE 97 U/L (38-126); ANION GAP 16 (5-19); ASPARTATE AMINO TRANSFERASE 36 U/L (14-36); BILIRUBIN,DIRECT 0.4 mg/dL (0.0-0.4); BILIRUBIN,TOTAL 0.6 mg/dL (0.2-1.3); BLOOD UREA NITROGEN 65 mg/dL (7-20); CALCIUM 9.2 mg/dL (8.4-10.2); CARBON DIOXIDE 24 mmol/L (22-30); CHLORIDE 111 mmol/L (98-107); CREATININE RESULT 2.83 mg/dL (0.52-1.25); GLUCOSE 248 mg/dL (75-110); POTASSIUM 3.7 mmol/L (3.6-5.0); SODIUM 150.7 mmol/L (137-145); TOTAL PROTEIN 7.8 g/dL (6.3-8.2)
[2016-07-31] MEDS: INSULIN LISPRO 100 UNIT/ML 3 ML VIAL SUBCUT PRN ×2 (15:55→18:31)
[2016-07-31] MEDS: DEXTROSE 5%-1/2 NORMAL SALINE 1,000 ML IV PRN (18:27)
[2016-07-31] MEDS: FERROUS SULFATE 325 MG TABLET PO SCH (18:35)
[2016-07-31] MEDS: CHOLECALCIFEROL (D3) 1,000 UNIT TABLET PO SCH (18:35)
--- NOTE | 2016-07-31 21:03 | PDOC PROGRESS REPORT ---
Subjective Progress Note for:: 07/31/16 Subjective:: Patient's condition is about the same, she has hypernatremia, she was started on IV fluid Physical Exam Vital Signs: Temp Pulse Resp BP Pulse Ox 99.4 F 80 18 159/71 H 100 07/31/16 15:44 07/31/16 15:44 07/31/16 15:44 07/31/16 15:44 07/31/16 11:56 Intake & Output 07/30/16 07/31/16 08/01/16 06:59 06:59 06:59 Intake Total 675 2393 1216 Output Total 650 400 Balance 1992 General appearance: PRESENT: mild distress Eye exam: PRESENT: PERRLA Respiratory exam: PRESENT: clear to auscultation juana Cardiovascular exam: PRESENT: +S1, +S2 Neurological exam: PRESENT: alert Results Laboratory Results: 07/31/16 10:32 07/31/16 10:32 07/31/16 07/31/16 10:32 10:32 WBC 12.3 H RBC 4.59 Hgb 12.1 Hct 38.5 MCV 84 MCH 26.5 L MCHC 31.6 L RDW 14.6 H Plt Count 389 Seg Neutrophils % 77.5 Lymphocytes % 12.8 L Monocytes % 7.6 Eosinophils % 0.9 Basophils % 1.2 Absolute Neutrophils 9.5 H Absolute Lymphocytes 1.6 Absolute Monocytes 0.9 Absolute Eosinophils 0.1 Absolute Basophils 0.1 Sodium 150.7 H Potassium 3.7 Chloride 111 H Carbon Dioxide 24 Anion Gap 16 BUN 65 H Creatinine 2.83 H Est GFR ( Amer) 19 L Est GFR (Non-Af Amer) 16 L Glucose 248 H Calcium 9.2 Total Bilirubin 0.6 AST 36 ALT 27 Alkaline Phosphatase 97 Total Protein 7.8 Albumin 3.2 L Impressions: Chest CT 07/25/16 00:00 IMPRESSION: DIFFUSE GROUND-GLASS OPACITIES COMPATIBLE WITH PULMONARY EDEMA ALONG WITH SMALL BILATERAL PLEURAL EFFUSIONS. ADDITIONAL AIRSPACE DISEASE WITHIN THE RIGHT UPPER LOBE AND RIGHT MIDDLE LOBE MAY REPRESENT SUPERIMPOSED PNEUMONIA. CORRELATE WITH FEVER/ELEVATED WHITE BLOOD CELL COUNT. Chest X-Ray 07/25/16 11:02 IMPRESSION: CARDIAC ENLARGEMENT. VASCULAR CONGESTION. Assessment & Plan - Diagnosis (1) Pneumonia Qualifiers: Pneumonia type: due to unspecified organism Laterality: right Lung location: upper lobe of lung Qualified Code(s): J18.1 - Lobar pneumonia, unspecified organism Is this a current diagnosis for this admission?: Yes (2) Nephrotic syndrome Is this a current diagnosis for this admission?: Yes (3) Chronic kidney disease, stage IV (severe) Is this a current diagnosis for this admission?: Yes (4) Dementia Qualifiers: Dementia type: unspecified type Dementia behavioral disturbance: without behavioral disturbance Qualified Code(s): F03.90 - Unspecified dementia without behavioral disturbance Is this a current diagnosis for this admission?: Yes (5) Diabetes mellitus Qualifiers: Diabetes mellitus type: type 2 Diabetes mellitus complication status: with kidney complications Diabetes mellitus complication detail: with chronic kidney disease Diabetes mellitus tank terminal gauger insulin use: with correction use Chronic kidney disease stage: stage 4 (severe) Qualified Code(s): E11.22 - Type 2 diabetes mellitus with diabetic chronic kidney disease ; N18.1 - Chronic kidney disease, stage 1; Z79.4 - termination clerk (current) use of insulin Is this a current diagnosis for this admission?: Yes (6) New onset seizure Is this a current diagnosis for this admission?: Yes (7) Hypernatremia Is this a current diagnosis for this admission?: Yes - Plan Summary Plan Summary: treatment was adjusted
[2016-07-31] MEDS: LEVOFLOXACIN 250 MG/D5W RTU 250 MG/50 ML RTUPB IV SCH (22:47)
[2016-07-31] MEDS: CEFEPIME HCL 0.5 GM in DEXTROSE 5%-WATER 25 ML IV SCH (22:47)
[2016-07-31] MEDS: ATORVASTATIN CALCIUM 40 MG TABLET PO SCH (22:50)
[2016-07-31] MEDS: INSULIN GLARGINE,HUM.REC.ANLOG 1,000 UNIT/10 ML UNIT SUBCUT SCH (23:49)
[2016-08-01] MEDS: ENALAPRILAT DIHYDRATE INJ/PF 2.5 MG/2 ML SDV IV SCH ×5 (00:42→23:07)
[2016-08-01 05:11] LABS: ABSOLUTE BASOPHILS # (AUTO) 0.1 10^3/uL (0.0-0.2); ABSOLUTE EOSINOPHILS # (AUTO) 0.2 10^3/uL (0.0-0.6); ABSOLUTE LYMPHOCYTES (AUTO) 2.2 10^3/uL (0.5-4.7); ABSOLUTE MONOCYTES (AUTO) 0.8 10^3/uL (0.1-1.4); ABSOLUTE NEUT (AUTO) 7.7 10^3/uL (1.7-8.2); BASOPHILS % (AUTO) 1.3 % (0-2); EOSINOPHILS % (AUTO) 1.8 % (0-6); HEMATOCRIT 34.8 % (36.0-47.0); HEMOGLOBIN 11.2 g/dL (12.0-15.5); HGB HCT DIFFERENCE -1.2; LYMPHOCYTES % (AUTO) 19.6 % (13-45); MEAN CORPUSCULAR HEMOGLOBIN 26.8 pg (27.0-33.4); MEAN CORPUSCULAR HGB CONC 32.1 g/dL (32.0-36.0); MEAN CORPUSCULAR VOLUME 83 fl (80-97); MONOCYTES % (AUTO) 7.5 % (3-13); RED BLOOD COUNT 4.18 10^6/uL (3.72-5.28); SEGMENTED NEUTROPHILS % (AUTO) 69.8 % (42-78)
[2016-08-01 05:24] LABS: ALANINE AMINOTRANSFERASE 27 U/L (9-52); ALKALINE PHOSPHATASE 78 U/L (38-126); ANION GAP 11 (5-19); ASPARTATE AMINO TRANSFERASE 44 U/L (14-36); BILIRUBIN,DIRECT 0.4 mg/dL (0.0-0.4); BILIRUBIN,TOTAL 0.6 mg/dL (0.2-1.3); BLOOD UREA NITROGEN 67 mg/dL (7-20); CALCIUM 8.8 mg/dL (8.4-10.2); CARBON DIOXIDE 25 mmol/L (22-30); CHLORIDE 112 mmol/L (98-107); CREATININE RESULT 2.73 mg/dL (0.52-1.25); GLUCOSE 235 mg/dL (75-110); POTASSIUM 3.3 mmol/L (3.6-5.0); TOTAL PROTEIN 7.2 g/dL (6.3-8.2)
[2016-08-01] MEDS: LANSOPRAZOLE 30 MG TAB.RAP.DR PO SCH (06:25)
[2016-08-01] MEDS: HEPARIN SOD (PORCINE) 5,000 UNIT/ML 1 ML SYRINGE SUBCUT SCH ×3 (06:25→22:59)
[2016-08-01] MEDS ORDERED: POTASSIUM CHLORIDE 20 MEQ/15 ML UDCUP PO ONE (11:03)
--- NOTE | 2016-08-01 11:25 | PDOC PROGRESS REPORT ---
Subjective Progress Note for:: 08/01/16 Subjective:: This is a 86-year-old female with a history of the dementia and chronic kidney disease and hypertension's was admitted because of the pneumonia and kidney failure. Patient is currently doing fair. Patient with questionable seizures activity but not sure Patient is otherwise on no fever overnight Patient's sodium level was very high in the beginning now is coming down with IV fluid Patient's daughter was in the bedside discussed with the daughter about the patient's current conditions Physical Exam Vital Signs: Temp Pulse Resp BP Pulse Ox 98.3 F 62 16 128/49 H 100 08/01/16 07:47 08/01/16 07:47 08/01/16 07:47 08/01/16 07:47 08/01/16 07:47 Intake & Output 07/31/16 08/01/16 08/02/16 06:59 06:59 06:59 Intake Total 2393 2816 Output Total 400 Balance 1993 2816 General appearance: PRESENT: no acute distress, other Eye exam: PRESENT: PERRLA Mouth exam: PRESENT: neck supple Respiratory exam: PRESENT: clear to auscultation juana Cardiovascular exam: PRESENT: +S1, +S2 GI/Abdominal exam: PRESENT: normal bowel sounds, soft Extremities exam: ABSENT: pedal edema Neurological exam: PRESENT: alert, altered Skin exam: PRESENT: dry Results Laboratory Results: 08/01/16 05:01 08/01/16 05:01 07/31/16 08/01/16 08/01/16 10:32 05:01 05:01 WBC 11.0 H RBC 4.18 Hgb 11.2 L Hct 34.8 L MCV 83 MCH 26.8 L MCHC 32.1 RDW 14.0 Plt Count 359 Seg Neutrophils % 69.8 Lymphocytes % 19.6 Monocytes % 7.5 Eosinophils % 1.8 Basophils % 1.3 Absolute Neutrophils 7.7 Absolute Lymphocytes 2.2 Absolute Monocytes 0.8 Absolute Eosinophils 0.2 Absolute Basophils 0.1 Sodium 150.7 H 148.0 H Potassium 3.7 3.3 L Chloride 111 H 112 H Carbon Dioxide 24 25 Anion Gap 16 11 BUN 65 H 67 H Creatinine 2.83 H 2.73 H Est GFR ( Amer) 19 L 20 L Est GFR (Non-Af Amer) 16 L 16 L Glucose 248 H 235 H Calcium 9.2 8.8 Total Bilirubin 0.6 0.6 AST 36 44 H ALT 27 27 Alkaline Phosphatase 97 78 Total Protein 7.8 7.2 Albumin 3.2 L 3.0 L Impressions: Chest CT 07/25/16 00:00 IMPRESSION: DIFFUSE GROUND-GLASS OPACITIES COMPATIBLE WITH PULMONARY EDEMA ALONG WITH SMALL BILATERAL PLEURAL EFFUSIONS. ADDITIONAL AIRSPACE DISEASE WITHIN THE RIGHT UPPER LOBE AND RIGHT MIDDLE LOBE MAY REPRESENT SUPERIMPOSED PNEUMONIA. CORRELATE WITH FEVER/ELEVATED WHITE BLOOD CELL COUNT. Chest X-Ray 07/25/16 11:02 IMPRESSION: CARDIAC ENLARGEMENT. VASCULAR CONGESTION. Assessment & Plan - Diagnosis (1) Pneumonia Qualifiers: Pneumonia type: due to unspecified organism Laterality: right Lung location: upper lobe of lung Qualified Code(s): J18.1 - Lobar pneumonia, unspecified organism Is this a current diagnosis for this admission?: YesPlan: Continues to IV antibiotic (2) Chronic kidney disease, stage IV (severe) Is this a current diagnosis for this admission?: YesPlan: Continues to D5 one half normal saline due to the hypernatremia and replace the potassiums (3) Dementia Qualifiers: Dementia type: unspecified type Dementia behavioral disturbance: without behavioral disturbance Qualified Code(s): F03.90 - Unspecified dementia without behavioral disturbance Is this a current diagnosis for this admission?: Yes (4) Diabetes mellitus Qualifiers: Diabetes mellitus type: type 2 Diabetes mellitus complication status: with kidney complications Diabetes mellitus complication detail: with chronic kidney disease Diabetes mellitus senior living insulin use: with emt intermediate use Chronic kidney disease stage: stage 4 (severe) Qualified Code(s): E11.22 - Type 2 diabetes mellitus with diabetic chronic kidney disease ; N18.1 - Chronic kidney disease, stage 1; Z79.4 - buttermaker continuous churn (current) use of insulin Is this a current diagnosis for this admission?: YesPlan: Continues to current medications (5) Hypernatremia Is this a current diagnosis for this admission?: YesPlan: From the dehydration's continues IV fluids (6) Metabolic encephalopathy Is this a current diagnosis for this admission?: YesPlan: Due to the electrolyte abnormalities corrected the potassiums (7) New onset seizure Is this a current diagnosis for this admission?: YesPlan: Not sure about the seizures patient is currently already on no medications will be ordered the EEG - Time Time Spent with patient: 15-24 minutes Medications reviewed and adjusted accordingly: Yes Anticipated discharge: SNF Within: Other - Inpatient Certification Medical Necessity: Need Close Monitoring Due to Risk of Patient Decompensation, Need For IV Fluids, Need for IV Antibiotics Post Hospital Care: D/C Product Owner Documentation - Plan Summary Plan Summary: Discussed with the daughter on the bedside about patient's current conditions with ongoing chronic problems with continues to monitor the patient's
--- NOTE | 2016-08-01 12:52 | RADIOLOGY REPORT (SQ) ---
EXAM DESCRIPTION: CHEST SINGLE VIEW COMPLETED DATE/TIME: 08/01/2016 12:17 pm REASON FOR STUDY: pnemonia COMPARISON: Chest films 06/16/2016, 07/25/2016 CT chest 07/25/2016 EXAM PARAMETERS: NUMBER OF VIEWS: One view. TECHNIQUE: Single frontal radiographic view of the chest acquired. RADIATION DOSE: NA LIMITATIONS: None. FINDINGS: LUNGS AND PLEURA: Pleural effusions seen on CT chest 07/25/2016 have resolved. No focal infiltrates. No pleural effusion. No pneumothorax. MEDIASTINUM AND HILAR STRUCTURES: No masses. Contour normal. HEART AND VASCULAR STRUCTURES: Heart normal in size. Normal vasculature. BONES: Old healed right posterior upper rib fractures HARDWARE: Left-sided dual lead pacemaker OTHER: No other significant finding. IMPRESSION: No acute findings. Pleural effusions and airspace disease seen on CT chest 07/25/2016 bell ve resolved TECHNICAL DOCUMENTATION: JOB ID: [id number]
[2016-08-01] MEDS: SODIUM BICARBONATE 650 MG TABLET PO SCH ×3 (12:59→17:56)
[2016-08-01] MEDS: AMLODIPINE BESYLATE 10 MG TABLET PO SCH (12:59)
[2016-08-01] MEDS: LOSARTAN POTASSIUM 50 MG TABLET PO SCH (12:59)
[2016-08-01] MEDS: DOCUSATE SODIUM 100 MG CAPSULE PO SCH ×2 (13:00→17:45)
[2016-08-01] MEDS ORDERED: BISACODYL 10 MG SUPP.RECT PR ONE (13:00)
[2016-08-01] MEDS: CLOPIDOGREL BISULFATE 75 MG TABLET PO SCH (13:03)
[2016-08-01] MEDS: INSULIN LISPRO 100 UNIT/ML 3 ML VIAL SUBCUT PRN ×3 (13:04→23:01)
[2016-08-01] MEDS: CHOLECALCIFEROL (D3) 1,000 UNIT TABLET PO SCH (17:45)
[2016-08-01] MEDS: FERROUS SULFATE 325 MG TABLET PO SCH (17:45)
[2016-08-01] MEDS: BUDESONIDE/FORMOTEROL 160-4.5 MCG 60 PUFF/6 GM MDI IH SCH ×2 (17:46→23:03)
[2016-08-01] MEDS: INSULIN GLARGINE,HUM.REC.ANLOG 1,000 UNIT/10 ML UNIT SUBCUT SCH (22:59)
[2016-08-01] MEDS: ATORVASTATIN CALCIUM 40 MG TABLET PO SCH (23:03)
[2016-08-01] MEDS: CEFEPIME HCL 0.5 GM in DEXTROSE 5%-WATER 25 ML IV SCH (23:05)
[2016-08-01] MEDS: DEXTROSE 5%-1/2 NORMAL SALINE 1,000 ML IV PRN (23:07)
[2016-08-02] MEDS: HEPARIN SOD (PORCINE) 5,000 UNIT/ML 1 ML SYRINGE SUBCUT SCH ×3 (05:03→21:29)
[2016-08-02] MEDS: LANSOPRAZOLE 30 MG TAB.RAP.DR PO SCH (05:06)
[2016-08-02] MEDS: ENALAPRILAT DIHYDRATE INJ/PF 2.5 MG/2 ML SDV IV SCH ×4 (05:06→23:51)
[2016-08-02 06:22] LABS: ABSOLUTE BASOPHILS # (AUTO) 0.1 10^3/uL (0.0-0.2); ABSOLUTE EOSINOPHILS # (AUTO) 0.3 10^3/uL (0.0-0.6); ABSOLUTE LYMPHOCYTES (AUTO) 1.9 10^3/uL (0.5-4.7); ABSOLUTE MONOCYTES (AUTO) 0.8 10^3/uL (0.1-1.4); ABSOLUTE NEUT (AUTO) 8.5 10^3/uL (1.7-8.2); BASOPHILS % (AUTO) 0.9 % (0-2); EOSINOPHILS % (AUTO) 2.5 % (0-6); HEMATOCRIT 37.1 % (36.0-47.0); HEMOGLOBIN 11.5 g/dL (12.0-15.5); HGB HCT DIFFERENCE -2.6; LYMPHOCYTES % (AUTO) 16.3 % (13-45); MEAN CORPUSCULAR HEMOGLOBIN 26.4 pg (27.0-33.4); MEAN CORPUSCULAR VOLUME 85 fl (80-97); MONOCYTES % (AUTO) 7.2 % (3-13); RED BLOOD COUNT 4.36 10^6/uL (3.72-5.28); RED CELL DISTRIBUTION WIDTH 14.2 % (11.5-14.0); SEGMENTED NEUTROPHILS % (AUTO) 73.1 % (42-78); WHITE BLOOD COUNT 11.6 10^3/uL (4.0-10.5)
[2016-08-02 06:40] LABS: ANION GAP 9 (5-19); BLOOD UREA NITROGEN 74 mg/dL (7-20); CALCIUM 8.7 mg/dL (8.4-10.2); CARBON DIOXIDE 25 mmol/L (22-30); CHLORIDE 111 mmol/L (98-107); CREATININE RESULT 2.62 mg/dL (0.52-1.25); GLUCOSE 336 mg/dL (75-110); POTASSIUM 3.9 mmol/L (3.6-5.0); SODIUM 145.2 mmol/L (137-145)
[2016-08-02] MEDS: INSULIN LISPRO 100 UNIT/ML 3 ML VIAL SUBCUT PRN ×3 (10:05→18:51)
[2016-08-02] MEDS: DOCUSATE SODIUM 100 MG CAPSULE PO SCH ×2 (10:05→17:08)
[2016-08-02] MEDS: AMLODIPINE BESYLATE 10 MG TABLET PO SCH (10:05)
[2016-08-02] MEDS: SODIUM BICARBONATE 650 MG TABLET PO SCH ×3 (10:05→17:08)
[2016-08-02] MEDS: LOSARTAN POTASSIUM 50 MG TABLET PO SCH (10:06)
[2016-08-02] MEDS: VANCOMYCIN HCL 750 MG in DEXTROSE 5%-WATER 250 ML IV SCH (10:13)
[2016-08-02] MEDS: BUDESONIDE/FORMOTEROL 160-4.5 MCG 60 PUFF/6 GM MDI IH SCH ×2 (10:13→21:28)
[2016-08-02] MEDS: CLOPIDOGREL BISULFATE 75 MG TABLET PO SCH (10:13)
[2016-08-02] MEDS: POLYVINYL ALCOHOL 1.4% OPH SOLN 15 ML OU PRN (10:13)
--- NOTE | 2016-08-02 13:47 | PDOC PROGRESS REPORT ---
Subjective Progress Note for:: 08/02/16 Subjective:: Patient is currently doing fair more alert awake. No fever no other events happen. Patient's chest x-ray is all clear patient's sodium level is also better Patient's blood sugar is running high Physical Exam Vital Signs: Temp Pulse Resp BP Pulse Ox 98.4 F 62 14 146/56 H 100 08/02/16 11:26 08/02/16 11:26 08/02/16 11:26 08/02/16 11:26 08/02/16 11:26 Intake & Output 08/01/16 08/02/16 08/03/16 06:59 06:59 06:59 Intake Total 2816 3290 Output Total 1150 Balance 2816 2140 General appearance: PRESENT: no acute distress Eye exam: PRESENT: PERRLA Mouth exam: PRESENT: neck supple Neck exam: PRESENT: full ROM. ABSENT: JVD Respiratory exam: PRESENT: clear to auscultation juana Cardiovascular exam: PRESENT: +S1, +S2 GI/Abdominal exam: PRESENT: normal bowel sounds, soft Extremities exam: ABSENT: pedal edema Neurological exam: PRESENT: alert, altered, awake Skin exam: PRESENT: dry Results Laboratory Results: 08/02/16 05:36 08/02/16 05:36 08/01/16 08/02/16 08/02/16 13:20 05:36 05:36 WBC 11.6 H RBC 4.36 Hgb 11.5 L Hct 37.1 MCV 85 MCH 26.4 L MCHC 31.0 L RDW 14.2 H Plt Count 325 Seg Neutrophils % 73.1 Lymphocytes % 16.3 Monocytes % 7.2 Eosinophils % 2.5 Basophils % 0.9 Absolute Neutrophils 8.5 H Absolute Lymphocytes 1.9 Absolute Monocytes 0.8 Absolute Eosinophils 0.3 Absolute Basophils 0.1 Sodium 145.2 H Potassium 3.9 Chloride 111 H Carbon Dioxide 25 Anion Gap 9 BUN 74 H Creatinine 2.62 H Est GFR ( Amer) 21 L Est GFR (Non-Af Amer) 17 L Glucose 336 H Calcium 8.7 Magnesium 1.9 Impressions: Chest CT 07/25/16 00:00 IMPRESSION: DIFFUSE GROUND-GLASS OPACITIES COMPATIBLE WITH PULMONARY EDEMA ALONG WITH SMALL BILATERAL PLEURAL EFFUSIONS. ADDITIONAL AIRSPACE DISEASE WITHIN THE RIGHT UPPER LOBE AND RIGHT MIDDLE LOBE MAY REPRESENT SUPERIMPOSED PNEUMONIA. CORRELATE WITH FEVER/ELEVATED WHITE BLOOD CELL COUNT. Chest X-Ray 08/01/16 00:00 IMPRESSION: No acute findings. Pleural effusions and airspace disease seen on CT chest 07/25/2016 have resolved Assessment & Plan - Diagnosis (1) Pneumonia Qualifiers: Pneumonia type: due to unspecified organism Laterality: right Lung location: upper lobe of lung Qualified Code(s): J18.1 - Lobar pneumonia, unspecified organism Is this a current diagnosis for this admission?: YesPlan: Is all getting better will continues to cefepime and stop the vancomycin (2) Chronic kidney disease, stage IV (severe) Is this a current diagnosis for this admission?: YesPlan: Currently all improving (3) Dementia Qualifiers: Dementia type: unspecified type Dementia behavioral disturbance: without behavioral disturbance Qualified Code(s): F03.90 - Unspecified dementia without behavioral disturbance Is this a current diagnosis for this admission?: Yes (4) Diabetes mellitus Qualifiers: Diabetes mellitus type: type 2 Diabetes mellitus complication status: with kidney complications Diabetes mellitus complication detail: with chronic kidney disease Diabetes mellitus intermediate frame tender insulin use: with intermediate frame tender use Chronic kidney disease stage: stage 4 (severe) Qualified Code(s): E11.22 - Type 2 diabetes mellitus with diabetic chronic kidney disease ; N18.1 - Chronic kidney disease, stage 1; Z79.4 - superintendent terminal (current) use of insulin Is this a current diagnosis for this admission?: YesPlan: Will increase the Lantus 10 units at night and now DC the D5 with half normal saline and start the one half normal saline (5) Hypernatremia Is this a current diagnosis for this admission?: YesPlan: All resolved (6) Metabolic encephalopathy Is this a current diagnosis for this admission?: YesPlan: Due to the electrolyte abnormalities corrected the potassiums (7) New onset seizure Is this a current diagnosis for this admission?: YesPlan: We will stop the Levaquin and order the EEG - Time Time Spent with patient: 15-24 minutes Medications reviewed and adjusted accordingly: Yes Anticipated discharge: SNF Within: Other - Inpatient Certification Medical Necessity: Need Close Monitoring Due to Risk of Patient Decompensation, Need for IV Antibiotics Post Hospital Care: D/C Machine Packer Documentation - Plan Summary Plan Summary: Discussed with the daughter about the patient's current conditions also concern about constipations will give her Dulcolax suppository
[2016-08-02] MEDS ORDERED: BISACODYL 10 MG SUPP.RECT PR ONE (16:00)
[2016-08-02] MEDS: CHOLECALCIFEROL (D3) 1,000 UNIT TABLET PO SCH (17:08)
[2016-08-02] MEDS: FERROUS SULFATE 325 MG TABLET PO SCH (17:08)
[2016-08-02] MEDS: ATORVASTATIN CALCIUM 40 MG TABLET PO SCH (21:28)
[2016-08-02] MEDS: INSULIN GLARGINE,HUM.REC.ANLOG 1,000 UNIT/10 ML UNIT SUBCUT SCH (21:30)
[2016-08-03] MEDS: LANSOPRAZOLE 30 MG TAB.RAP.DR PO SCH (05:55)
[2016-08-03] MEDS: HEPARIN SOD (PORCINE) 5,000 UNIT/ML 1 ML SYRINGE SUBCUT SCH ×3 (05:55→22:11)
[2016-08-03] MEDS: ENALAPRILAT DIHYDRATE INJ/PF 2.5 MG/2 ML SDV IV SCH ×3 (05:56→17:21)
[2016-08-03 06:15] LABS: ANION GAP 11 (5-19); BLOOD UREA NITROGEN 68 mg/dL (7-20); CALCIUM 8.5 mg/dL (8.4-10.2); CARBON DIOXIDE 24 mmol/L (22-30); CHLORIDE 107 mmol/L (98-107); CREATININE RESULT 2.17 mg/dL (0.52-1.25); GLUCOSE 277 mg/dL (75-110); POTASSIUM 3.6 mmol/L (3.6-5.0)
[2016-08-03 07:31] LABS: ABSOLUTE BASOPHILS # (AUTO) 0.1 10^3/uL (0.0-0.2); ABSOLUTE EOSINOPHILS # (AUTO) 0.3 10^3/uL (0.0-0.6); ABSOLUTE LYMPHOCYTES (AUTO) 1.7 10^3/uL (0.5-4.7); ABSOLUTE NEUT (AUTO) 15.1 10^3/uL (1.7-8.2); BASOPHILS % (AUTO) 0.4 % (0-2); EOSINOPHILS % (AUTO) 1.6 % (0-6); HEMOGLOBIN 10.4 g/dL (12.0-15.5); HGB HCT DIFFERENCE -0.8; LYMPHOCYTES % (AUTO) 9.2 % (13-45); MEAN CORPUSCULAR HEMOGLOBIN 26.7 pg (27.0-33.4); MEAN CORPUSCULAR HGB CONC 32.4 g/dL (32.0-36.0); MEAN CORPUSCULAR VOLUME 82 fl (80-97); MONOCYTES % (AUTO) 5.7 % (3-13); RED BLOOD COUNT 3.88 10^6/uL (3.72-5.28); SEGMENTED NEUTROPHILS % (AUTO) 83.1 % (42-78); WHITE BLOOD COUNT 18.1 10^3/uL (4.0-10.5)
[2016-08-03] MEDS: 1/2 NORMAL SALINE 1,000 ML IV PRN (11:03)
[2016-08-03] MEDS: BUDESONIDE/FORMOTEROL 160-4.5 MCG 60 PUFF/6 GM MDI IH SCH ×2 (11:06→22:15)
[2016-08-03] MEDS: DOCUSATE SODIUM 100 MG CAPSULE PO SCH ×2 (11:06→17:20)
[2016-08-03] MEDS: AMLODIPINE BESYLATE 10 MG TABLET PO SCH (11:06)
[2016-08-03] MEDS: CLOPIDOGREL BISULFATE 75 MG TABLET PO SCH (11:06)
[2016-08-03] MEDS: LOSARTAN POTASSIUM 50 MG TABLET PO SCH (11:07)
[2016-08-03] MEDS: SODIUM BICARBONATE 650 MG TABLET PO SCH ×3 (11:08→17:38)
[2016-08-03] MEDS: INSULIN LISPRO 100 UNIT/ML 3 ML VIAL SUBCUT PRN ×3 (12:01→22:14)
[2016-08-03] MEDS: CHOLECALCIFEROL (D3) 1,000 UNIT TABLET PO SCH (17:20)
[2016-08-03] MEDS: FERROUS SULFATE 325 MG TABLET PO SCH (17:20)
--- NOTE | 2016-08-03 20:00 | PDOC PROGRESS REPORT ---
Subjective Progress Note for:: 08/03/16 Subjective:: She was seen by the bedside, she is seems to be more responsive,alert,compared to previous days Physical Exam Vital Signs: Temp Pulse Resp BP Pulse Ox 98.7 F 78 16 131/58 H 98 08/03/16 16:24 08/03/16 16:24 08/03/16 16:24 08/03/16 16:24 08/03/16 16:24 Intake & Output 08/02/16 08/03/16 08/04/16 06:59 06:59 06:59 Intake Total 3290 1610 991 Output Total 1150 475 300 Balance 2140 1135 691 General appearance: PRESENT: no acute distress Eye exam: PRESENT: PERRLA Cardiovascular exam: PRESENT: +S1, +S2 GI/Abdominal exam: PRESENT: soft Neurological exam: PRESENT: alert, CN II-XII grossly intact Results Laboratory Results: 08/03/16 07:02 08/03/16 05:22 08/03/16 08/03/16 08/03/16 05:22 05:22 07:02 WBC Cancelled 18.1 H RBC Cancelled 3.88 Hgb Cancelled 10.4 L Hct Cancelled 32.0 L MCV Cancelled 82 MCH Cancelled 26.7 L MCHC Cancelled 32.4 RDW Cancelled 14.0 Plt Count Cancelled 347 Seg Neutrophils % Cancelled 83.1 H Lymphocytes % Cancelled 9.2 L Monocytes % Cancelled 5.7 Eosinophils % Cancelled 1.6 Basophils % Cancelled 0.4 Absolute Neutrophils Cancelled 15.1 H Absolute Lymphocytes Cancelled 1.7 Absolute Monocytes Cancelled 1.0 Absolute Eosinophils Cancelled 0.3 Absolute Basophils Cancelled 0.1 Sodium 142.0 Potassium 3.6 Chloride 107 Carbon Dioxide 24 Anion Gap 11 BUN 68 H Creatinine 2.17 H Est GFR ( Amer) 26 L Est GFR (Non-Af Amer) 21 L Glucose 277 H Calcium 8.5 Impressions: Chest CT 07/25/16 00:00 IMPRESSION: DIFFUSE GROUND-GLASS OPACITIES COMPATIBLE WITH PULMONARY EDEMA ALONG WITH SMALL BILATERAL PLEURAL EFFUSIONS. ADDITIONAL AIRSPACE DISEASE WITHIN THE RIGHT UPPER LOBE AND RIGHT MIDDLE LOBE MAY REPRESENT SUPERIMPOSED PNEUMONIA. CORRELATE WITH FEVER/ELEVATED WHITE BLOOD CELL COUNT. Chest X-Ray 08/01/16 00:00 IMPRESSION: No acute findings. Pleural effusions and airspace disease seen on CT chest 07/25/2016 have resolved Assessment & Plan - Diagnosis (1) Pneumonia Qualifiers: Pneumonia type: due to unspecified organism Laterality: right Lung location: upper lobe of lung Qualified Code(s): J18.1 - Lobar pneumonia, unspecified organism Is this a current diagnosis for this admission?: Yes (2) Nephrotic syndrome Is this a current diagnosis for this admission?: Yes (3) Chronic kidney disease, stage IV (severe) Is this a current diagnosis for this admission?: Yes (4) Dementia Qualifiers: Dementia type: unspecified type Dementia behavioral disturbance: without behavioral disturbance Qualified Code(s): F03.90 - Unspecified dementia without behavioral disturbance Is this a current diagnosis for this admission?: Yes (5) Diabetes mellitus Qualifiers: Diabetes mellitus type: type 2 Diabetes mellitus complication status: with kidney complications Diabetes mellitus complication detail: with chronic kidney disease Diabetes mellitus nursing home insulin use: with nursing home use Chronic kidney disease stage: stage 4 (severe) Qualified Code(s): E11.22 - Type 2 diabetes mellitus with diabetic chronic kidney disease ; N18.1 - Chronic kidney disease, stage 1; Z79.4 - exterminator termite (current) use of insulin Is this a current diagnosis for this admission?: Yes (6) New onset seizure Is this a current diagnosis for this admission?: Yes (7) Hypernatremia Is this a current diagnosis for this admission?: Yes (8) Leucocytosis Qualifiers: Leukocytosis type: bandemia Qualified Code(s): D72.825 - Bandemia Plan: She has leucocutosis ,the cause is not clear, the chest x-ray was negative, she will be empirically treated with antibiotic
[2016-08-03 20:22] LABS: ABSOLUTE BASOPHILS # (AUTO) 0.1 10^3/uL (0.0-0.2); ABSOLUTE EOSINOPHILS # (AUTO) 0.3 10^3/uL (0.0-0.6); ABSOLUTE LYMPHOCYTES (AUTO) 1.7 10^3/uL (0.5-4.7); ABSOLUTE NEUT (AUTO) 11.7 10^3/uL (1.7-8.2); BASOPHILS % (AUTO) 0.4 % (0-2); EOSINOPHILS % (AUTO) 1.8 % (0-6); HEMATOCRIT 30.9 % (36.0-47.0); HEMOGLOBIN 9.9 g/dL (12.0-15.5); HGB HCT DIFFERENCE -1.2; LYMPHOCYTES % (AUTO) 11.6 % (13-45); MEAN CORPUSCULAR HEMOGLOBIN 26.5 pg (27.0-33.4); MEAN CORPUSCULAR VOLUME 83 fl (80-97); MONOCYTES % (AUTO) 6.9 % (3-13); RED BLOOD COUNT 3.74 10^6/uL (3.72-5.28); SEGMENTED NEUTROPHILS % (AUTO) 79.3 % (42-78); WHITE BLOOD COUNT 14.8 10^3/uL (4.0-10.5)
[2016-08-03 20:32] LABS: ALANINE AMINOTRANSFERASE 22 U/L (9-52); ALBUMIN 2.4 g/dL (3.5-5.0); ALKALINE PHOSPHATASE 103 U/L (38-126); ANION GAP 10 (5-19); ASPARTATE AMINO TRANSFERASE 23 U/L (14-36); BILIRUBIN,DIRECT 0.3 mg/dL (0.0-0.4); BILIRUBIN,TOTAL 0.3 mg/dL (0.2-1.3); BLOOD UREA NITROGEN 62 mg/dL (7-20); CALCIUM 8.4 mg/dL (8.4-10.2); CARBON DIOXIDE 22 mmol/L (22-30); CHLORIDE 107 mmol/L (98-107); CREATININE RESULT 2.14 mg/dL (0.52-1.25); GLUCOSE 192 mg/dL (75-110); POTASSIUM 3.5 mmol/L (3.6-5.0); SODIUM 138.7 mmol/L (137-145); TOTAL PROTEIN 5.5 g/dL (6.3-8.2)
[2016-08-03] MEDS: CEFTRIAXONE 1 GM/D5W RTU 1 GM/50 ML RTUPB IV SCH (22:10)
[2016-08-03] MEDS: ATORVASTATIN CALCIUM 40 MG TABLET PO SCH (22:11)
[2016-08-03] MEDS: INSULIN GLARGINE,HUM.REC.ANLOG 1,000 UNIT/10 ML UNIT SUBCUT SCH (22:12)
--- NOTE | 2016-08-03 22:33 | RADIOLOGY REPORT (SQ) ---
EXAM DESCRIPTION: CHEST SINGLE VIEW COMPLETED DATE/TIME: 08/03/2016 9:51 pm REASON FOR STUDY: sepsis COMPARISON: 08/01/2016 EXAM PARAMETERS: NUMBER OF VIEWS: One view. TECHNIQUE: Single frontal radiographic view of the chest acquired. RADIATION DOSE: NA LIMITATIONS: None. FINDINGS: LUNGS AND PLEURA: No acute opacities, masses or pneumothorax. No pleural effusion. MEDIASTINUM AND HILAR STRUCTURES: Stable. HEART AND VASCULAR STRUCTURES: Stable. BONES: No acute findings. HARDWARE: Cardiac pacer. OTHER: No other significant finding. IMPRESSION: NO ACUTE RADIOGRAPHIC FINDING IN THE CHEST. TECHNICAL DOCUMENTATION: JOB ID: [id number]
[2016-08-04] MEDS: ENALAPRILAT DIHYDRATE INJ/PF 2.5 MG/2 ML SDV IV SCH ×5 (00:12→23:41)
[2016-08-04 05:48] LABS: ANION GAP 10 (5-19); BLOOD UREA NITROGEN 65 mg/dL (7-20); CALCIUM 8.5 mg/dL (8.4-10.2); CARBON DIOXIDE 23 mmol/L (22-30); CHLORIDE 107 mmol/L (98-107); CREATININE RESULT 1.98 mg/dL (0.52-1.25); GLUCOSE 105 mg/dL (75-110); SODIUM 139.7 mmol/L (137-145)
[2016-08-04] MEDS: LANSOPRAZOLE 30 MG TAB.RAP.DR PO SCH (05:54)
[2016-08-04] MEDS: HEPARIN SOD (PORCINE) 5,000 UNIT/ML 1 ML SYRINGE SUBCUT SCH ×3 (05:58→21:59)
[2016-08-04] MEDS: 1/2 NORMAL SALINE 1,000 ML IV PRN (11:23)
[2016-08-04] MEDS: BUDESONIDE/FORMOTEROL 160-4.5 MCG 60 PUFF/6 GM MDI IH SCH ×2 (12:04→21:59)
[2016-08-04] MEDS: LOSARTAN POTASSIUM 50 MG TABLET PO SCH (12:05)
[2016-08-04] MEDS: DOCUSATE SODIUM 100 MG CAPSULE PO SCH ×2 (12:05→18:26)
[2016-08-04] MEDS: CLOPIDOGREL BISULFATE 75 MG TABLET PO SCH (12:06)
[2016-08-04] MEDS: AMLODIPINE BESYLATE 10 MG TABLET PO SCH (12:06)
[2016-08-04] MEDS: INSULIN LISPRO 100 UNIT/ML 3 ML VIAL SUBCUT PRN (15:39)
--- NOTE | 2016-08-04 15:57 | EEG PRO FEE REPORT ---
EEG INTERPRETATION PATIENT NAME: AUDRA LANDRY ROOM#: [id number] ORDER#: [id number] DATE OF STUDY: 08/03/2016 : 1930 REFERRING MD: ARTIE PEDRO M.D. DIAGNOSIS: Seizures MEDICATIONS: Tylenol, Albuterol, Amlodipine, Artificial tears, Cholecalciferol, Plavix, IV REPORT This is a 16 channel EEG recording with a channel of EKG done during wakefulness, drowsiness photic stimulation, and early stages of sleep. The background activity is 6-7 cycles per second, seen best in the posterior electrodes and modulated by opening and eye closing. Beta 18-22 cycles per second seen, mild artifact also noted. Slower forms in the range of 5-6 cycles per second seen but appear to be related to drowsiness. Photic stimulation was administered and did not evoke any abnormal discharges. In early stages of sleep more generalized slowing seen. IMPRESSION Minimal generalized likely related to sleepiness or drowsiness; however clinical correlation is recommended as it could be medication effect encephalopathy from a variety of causes. INTERPRETING PHYSICIAN: JORDY FLOR M.D. /: HUSSEIN TT: [id number] ID: [id number] /: [id number] TD: [id number] JOB: [id number] cc:Jose CARVALHO M.D. SWETANG PATEL, M.D. > MTDD
[2016-08-04] MEDS: FERROUS SULFATE 325 MG TABLET PO SCH (18:27)
[2016-08-04] MEDS: CHOLECALCIFEROL (D3) 1,000 UNIT TABLET PO SCH (18:27)
--- NOTE | 2016-08-04 19:49 | PDOC PROGRESS REPORT ---
Subjective Progress Note for:: 08/04/16 Subjective:: There is no new complaints,may need to reduce the IV infusion rate Physical Exam Vital Signs: Temp Pulse Resp BP Pulse Ox 97.8 F 65 16 148/44 H 100 08/04/16 15:45 08/04/16 15:45 08/04/16 15:45 08/04/16 15:45 08/04/16 15:45 Intake & Output 08/03/16 08/04/16 08/05/16 06:59 06:59 06:59 Intake Total 1610 1651 1808 Output Total 475 650 350 Balance 1135 1001 1458 Weight 43.9 kg General appearance: PRESENT: no acute distress Eye exam: PRESENT: PERRLA Respiratory exam: PRESENT: rhonchi Cardiovascular exam: PRESENT: +S1, +S2 GI/Abdominal exam: PRESENT: soft Neurological exam: PRESENT: alert Results Laboratory Results: 08/03/16 20:05 08/04/16 04:59 08/03/16 08/03/16 08/04/16 20:05 20:05 04:59 WBC 14.8 H RBC 3.74 Hgb 9.9 L Hct 30.9 L MCV 83 MCH 26.5 L MCHC 32.0 RDW 14.0 Plt Count 303 Seg Neutrophils % 79.3 H Lymphocytes % 11.6 L Monocytes % 6.9 Eosinophils % 1.8 Basophils % 0.4 Absolute Neutrophils 11.7 H Absolute Lymphocytes 1.7 Absolute Monocytes 1.0 Absolute Eosinophils 0.3 Absolute Basophils 0.1 Sodium 138.7 139.7 Potassium 3.5 L 4.0 Chloride 107 107 Carbon Dioxide 22 23 Anion Gap 10 10 BUN 62 H 65 H Creatinine 2.14 H 1.98 H Est GFR ( Amer) 26 L 29 L Est GFR (Non-Af Amer) 22 L 24 L Glucose 192 H 105 Calcium 8.4 8.5 Total Bilirubin 0.3 AST 23 ALT 22 Alkaline Phosphatase 103 Total Protein 5.5 L Albumin 2.4 L Impressions: Chest CT 07/25/16 00:00 IMPRESSION: DIFFUSE GROUND-GLASS OPACITIES COMPATIBLE WITH PULMONARY EDEMA ALONG WITH SMALL BILATERAL PLEURAL EFFUSIONS. ADDITIONAL AIRSPACE DISEASE WITHIN THE RIGHT UPPER LOBE AND RIGHT MIDDLE LOBE MAY REPRESENT SUPERIMPOSED PNEUMONIA. CORRELATE WITH FEVER/ELEVATED WHITE BLOOD CELL COUNT. Chest X-Ray 08/03/16 00:00 IMPRESSION: NO ACUTE RADIOGRAPHIC FINDING IN THE CHEST. Assessment & Plan - Diagnosis (1) Pneumonia Qualifiers: Pneumonia type: due to unspecified organism Laterality: right Lung location: upper lobe of lung Qualified Code(s): J18.1 - Lobar pneumonia, unspecified organism Is this a current diagnosis for this admission?: Yes (2) Nephrotic syndrome Is this a current diagnosis for this admission?: Yes (3) Chronic kidney disease, stage IV (severe) Is this a current diagnosis for this admission?: Yes (4) Dementia Qualifiers: Dementia type: unspecified type Dementia behavioral disturbance: without behavioral disturbance Qualified Code(s): F03.90 - Unspecified dementia without behavioral disturbance Is this a current diagnosis for this admission?: Yes (5) Diabetes mellitus Qualifiers: Diabetes mellitus type: type 2 Diabetes mellitus complication status: with kidney complications Diabetes mellitus complication detail: with chronic kidney disease Diabetes mellitus jail insulin use: with jail use Chronic kidney disease stage: stage 4 (severe) Qualified Code(s): E11.22 - Type 2 diabetes mellitus with diabetic chronic kidney disease ; N18.1 - Chronic kidney disease, stage 1; Z79.4 - residential (current) use of insulin Is this a current diagnosis for this admission?: Yes (6) New onset seizure Is this a current diagnosis for this admission?: Yes (7) Hypernatremia Is this a current diagnosis for this admission?: Yes (8) Leucocytosis Qualifiers: Leukocytosis type: bandemia Qualified Code(s): D72.825 - Bandemia
[2016-08-04] MEDS: CEFTRIAXONE 1 GM/D5W RTU 1 GM/50 ML RTUPB IV SCH (21:58)
[2016-08-04] MEDS: ATORVASTATIN CALCIUM 40 MG TABLET PO SCH (21:58)
[2016-08-04] MEDS: INSULIN GLARGINE,HUM.REC.ANLOG 1,000 UNIT/10 ML UNIT SUBCUT SCH (22:35)
[2016-08-05] MEDS: ENALAPRILAT DIHYDRATE INJ/PF 2.5 MG/2 ML SDV IV SCH ×3 (05:18→18:03)
[2016-08-05] MEDS: LANSOPRAZOLE 30 MG TAB.RAP.DR PO SCH (05:53)
[2016-08-05] MEDS: HEPARIN SOD (PORCINE) 5,000 UNIT/ML 1 ML SYRINGE SUBCUT SCH ×3 (05:57→21:44)
--- NOTE | 2016-08-05 17:09 | PDOC PROGRESS REPORT ---
Subjective Progress Note for:: 08/05/16 Subjective:: She was seen by the bedside, the fluid infusion rate is reduced Physical Exam Vital Signs: Temp Pulse Resp BP Pulse Ox 97.6 F 62 17 146/46 H 100 08/05/16 07:24 08/05/16 07:24 08/05/16 07:24 08/05/16 07:24 08/05/16 07:24 Intake & Output 08/04/16 08/05/16 08/06/16 06:59 06:59 06:59 Intake Total 1651 2418 Output Total 650 970 Balance 1001 1448 Weight 43.9 kg General appearance: PRESENT: no acute distress Eye exam: PRESENT: PERRLA Respiratory exam: PRESENT: clear to auscultation juana Cardiovascular exam: PRESENT: +S1, +S2 GI/Abdominal exam: PRESENT: soft Results Laboratory Results: 08/03/16 20:05 08/04/16 04:59 Impressions: Chest CT 07/25/16 00:00 IMPRESSION: DIFFUSE GROUND-GLASS OPACITIES COMPATIBLE WITH PULMONARY EDEMA ALONG WITH SMALL BILATERAL PLEURAL EFFUSIONS. ADDITIONAL AIRSPACE DISEASE WITHIN THE RIGHT UPPER LOBE AND RIGHT MIDDLE LOBE MAY REPRESENT SUPERIMPOSED PNEUMONIA. CORRELATE WITH FEVER/ELEVATED WHITE BLOOD CELL COUNT. Chest X-Ray 08/03/16 00:00 IMPRESSION: NO ACUTE RADIOGRAPHIC FINDING IN THE CHEST. Assessment & Plan - Diagnosis (1) Pneumonia Qualifiers: Pneumonia type: due to unspecified organism Laterality: right Lung location: upper lobe of lung Qualified Code(s): J18.1 - Lobar pneumonia, unspecified organism Is this a current diagnosis for this admission?: Yes (2) Nephrotic syndrome Is this a current diagnosis for this admission?: Yes (3) Chronic kidney disease, stage IV (severe) Is this a current diagnosis for this admission?: Yes (4) Dementia Qualifiers: Dementia type: unspecified type Dementia behavioral disturbance: without behavioral disturbance Qualified Code(s): F03.90 - Unspecified dementia without behavioral disturbance Is this a current diagnosis for this admission?: Yes (5) Diabetes mellitus Qualifiers: Diabetes mellitus type: type 2 Diabetes mellitus complication status: with kidney complications Diabetes mellitus complication detail: with chronic kidney disease Diabetes mellitus termination clerk insulin use: with detention use Chronic kidney disease stage: stage 4 (severe) Qualified Code(s): E11.22 - Type 2 diabetes mellitus with diabetic chronic kidney disease ; N18.1 - Chronic kidney disease, stage 1; 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
[2016-08-05] MEDS: DOCUSATE SODIUM 100 MG CAPSULE PO SCH ×2 (18:02→18:03)
[2016-08-05] MEDS: CLOPIDOGREL BISULFATE 75 MG TABLET PO SCH (18:02)
[2016-08-05] MEDS: BUDESONIDE/FORMOTEROL 160-4.5 MCG 60 PUFF/6 GM MDI IH SCH ×2 (18:02→21:47)
[2016-08-05] MEDS: FERROUS SULFATE 325 MG TABLET PO SCH (18:02)
[2016-08-05] MEDS: AMLODIPINE BESYLATE 10 MG TABLET PO SCH (18:02)
[2016-08-05] MEDS: LOSARTAN POTASSIUM 50 MG TABLET PO SCH (18:02)
[2016-08-05] MEDS: CHOLECALCIFEROL (D3) 1,000 UNIT TABLET PO SCH (18:02)
[2016-08-05] MEDS: INSULIN GLARGINE,HUM.REC.ANLOG 1,000 UNIT/10 ML UNIT SUBCUT SCH (21:44)
[2016-08-05] MEDS: CEFTRIAXONE 1 GM/D5W RTU 1 GM/50 ML RTUPB IV SCH (21:44)
[2016-08-05] MEDS: ATORVASTATIN CALCIUM 40 MG TABLET PO SCH (21:45)
[2016-08-06] MEDS: ENALAPRILAT DIHYDRATE INJ/PF 2.5 MG/2 ML SDV IV SCH ×4 (00:35→17:08)
[2016-08-06] MEDS: LANSOPRAZOLE 30 MG TAB.RAP.DR PO SCH (05:02)
[2016-08-06] MEDS: HEPARIN SOD (PORCINE) 5,000 UNIT/ML 1 ML SYRINGE SUBCUT SCH ×3 (05:08→22:03)
[2016-08-06] MEDS: DOCUSATE SODIUM 100 MG CAPSULE PO SCH ×2 (09:04→17:21)
[2016-08-06] MEDS: AMLODIPINE BESYLATE 10 MG TABLET PO SCH (14:45)
[2016-08-06] MEDS: BUDESONIDE/FORMOTEROL 160-4.5 MCG 60 PUFF/6 GM MDI IH SCH ×2 (14:45→22:04)
[2016-08-06] MEDS: LOSARTAN POTASSIUM 50 MG TABLET PO SCH (14:45)
[2016-08-06] MEDS: CLOPIDOGREL BISULFATE 75 MG TABLET PO SCH (14:49)
--- NOTE | 2016-08-06 15:13 | XCELERA REPORT ---
[address] [address] Transthoracic Echocardiogram Report Name: AUDRA LANDRY Age: 86 yrs Gender: Female : 1930 Patient Status: Inpatient Patient Location: [id number] Study Date: 07/25/2016 07:31 PM Height: 57 in Weight: 96 lb BSA: 1.3 m2 Procedure: A complete two-dimensional transthoracic echocardiogram was performed (2D, M-mode, spectral and color flow Doppler). The study was technically adequate with some images being suboptimal in quality. Reason For Study: chf Ordering Physician: CANDICE LUND Performed By: Fabio Aguirre Interpretation Summary The left ventricular ejection fraction is normal. The left ventricle is grossly normal size. Doppler measurements suggest pseudonormalized left ventricular relaxation, which is associated with grade II/IV or mild to moderate diastolic dysfunction There is mild concentric left ventricular hypertrophy. Wall motion cannot be accurately commented on, but no definite regional wall motion abnormalities noted. The right ventricle is mildly dilated. The right ventricular systolic function is normal. The left atrium is mildly dilated. The right atrium is mild to moderately dilated. There is a trace to mild amount of mitral regurgitation There is no mitral valve stenosis. There is mild aortic stenosis There is a trace amount of aortic regurgitation There is a moderate to severe amount of tricuspid regurgitation There is no tricuspid stenosis. The aortic root is not well visualized. The inferior vena cava appeared normal and decreased < 50% with respiration (RAP 10-15 mmHg) Minimal pericardial effusion. There is moderate to severe Pulmonary Hypertension.RVSP is 58 to 63 mm of Hg , with RA mean of 10 to 15. MMode/2D Measurements \T\ Calculations RVDd: 3.6 cm LVIDd: 4.1 cm FS: 44.4 % Ao root diam: 3.0 cm IVSd: 1.3 cm LVIDs: 2.3 cm EDV(Teich): 72.8 ml LVPWd: 1.7 cm ESV(Teich): 17.3 ml Ao root area: 7.1 cm2 EF(Teich): 76.2 % LA dimension: 4.3 cm Doppler Measurements \T\ Calculations MV E max lani: MV P1/2t max lani: Ao V2 max: LV V1 max P.7 cm/sec 111.9 cm/sec 195.9 cm/sec 4.1 mmHg MV A max lani: MV P1/2t: 76.4 msec Ao max PG: LV V1 max: 120.1 cm/sec 15.3 mmHg 101.4 cm/sec MV E/A: 0.91 MVA(P1/2t): 2.9 cm2 MV dec slope: 428.8 cm/sec2 PA V2 max: PI end-d lani: TR max lani: RAP systole: 94.3 cm/sec 130.3 cm/sec 343.9 cm/sec 10.0 mmHg PA max PG: TR max P.6 mmHg 47.8 mmHg RVSP(TR): 57.8 mmHg Left Ventricle The left ventricle is grossly normal size. There is mild concentric left ventricular hypertrophy. The left ventricular ejection fraction is normal. Doppler measurements suggest pseudonormalized left ventricular relaxation, which is associated with grade II/IV or mild to moderate diastolic dysfunction. Wall motion cannot be accurately commented on, but no definite regional wall motion abnormalities noted. Right Ventricle The right ventricle is mildly dilated. The right ventricular systolic function is normal. Atria The right atrium is mild to moderately dilated. The left atrium is mildly dilated. Interarterial septum not well visualized and not well dopplered. Cannot comment on ASD/PFO presence. Mitral Valve There is mild mitral annular calcification. There is no mitral valve stenosis. There is a trace to mild amount of mitral regurgitation. Aortic Valve The aortic valve is mildly calcified. There is mild aortic stenosis. There is a trace amount of aortic regurgitation. Tricuspid Valve The tricuspid valve is not well visualized secondary to technical limitations. There is no tricuspid stenosis. There is a moderate to severe amount of tricuspid regurgitation. There is moderate to severe Pulmonary Hypertension.RVSP is 58 to 63 mm of Hg , with RA mean of 10 to 15. Pulmonic Valve The pulmonic valve is not well visualized. There is a mild amount of pulmonic regurgitation. Great Vessels The aortic root is not well visualized. The inferior vena cava appeared normal and decreased < 50% with respiration (RAP 10-15 mmHg). Effusions Minimal pericardial effusion. : CANDICE LUND > Orin Russell
[2016-08-06] MEDS: CHOLECALCIFEROL (D3) 1,000 UNIT TABLET PO SCH (17:21)
[2016-08-06] MEDS: FERROUS SULFATE 325 MG TABLET PO SCH (17:21)
--- NOTE | 2016-08-06 18:44 | PDOC PROGRESS REPORT ---
Subjective Progress Note for:: 08/06/16 Subjective:: She was seen by the bedside, it seems that she is wheezing today, reflecting too much volume. She has nephrotic syndrome, will reduce IV fluid and start IV Lasix Physical Exam Vital Signs: Temp Pulse Resp BP Pulse Ox 97.7 F 78 15 146/71 H 100 08/06/16 15:06 08/06/16 15:06 08/06/16 15:06 08/06/16 15:06 08/06/16 15:06 Intake & Output 08/05/16 08/06/16 08/07/16 06:59 06:59 06:59 Intake Total 2418 2157 979 Output Total 970 900 600 Balance 1448 1257 379 General appearance: PRESENT: mild distress Eye exam: PRESENT: PERRLA Respiratory exam: PRESENT: wheezes Cardiovascular exam: PRESENT: +S2 GI/Abdominal exam: PRESENT: soft Neurological exam: PRESENT: alert Results Laboratory Results: 08/03/16 20:05 08/04/16 04:59 Impressions: Chest CT 07/25/16 00:00 IMPRESSION: DIFFUSE GROUND-GLASS OPACITIES COMPATIBLE WITH PULMONARY EDEMA ALONG WITH SMALL BILATERAL PLEURAL EFFUSIONS. ADDITIONAL AIRSPACE DISEASE WITHIN THE RIGHT UPPER LOBE AND RIGHT MIDDLE LOBE MAY REPRESENT SUPERIMPOSED PNEUMONIA. CORRELATE WITH FEVER/ELEVATED WHITE BLOOD CELL COUNT. Chest X-Ray 08/03/16 00:00 IMPRESSION: NO ACUTE RADIOGRAPHIC FINDING IN THE CHEST. Assessment & Plan - Diagnosis (1) Pneumonia Qualifiers: Pneumonia type: due to unspecified organism Laterality: right Lung location: upper lobe of lung Qualified Code(s): J18.1 - Lobar pneumonia, unspecified organism Is this a current diagnosis for this admission?: Yes (2) Nephrotic syndrome Is this a current diagnosis for this admission?: Yes (3) Chronic kidney disease, stage IV (severe) Is this a current diagnosis for this admission?: Yes (4) Dementia Qualifiers: Dementia type: unspecified type Dementia behavioral disturbance: without behavioral disturbance Qualified Code(s): F03.90 - Unspecified dementia without behavioral disturbance Is this a current diagnosis for this admission?: Yes (5) Diabetes mellitus Qualifiers: Diabetes mellitus type: type 2 Diabetes mellitus complication status: with kidney complications Diabetes mellitus complication detail: with chronic kidney disease Diabetes mellitus nursing home insulin use: with nursing home use Chronic kidney disease stage: stage 4 (severe) Qualified Code(s): E11.22 - Type 2 diabetes mellitus with diabetic chronic kidney disease ; N18.1 - Chronic kidney disease, stage 1; 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
[2016-08-06] MEDS: CEFTRIAXONE 1 GM/D5W RTU 1 GM/50 ML RTUPB IV SCH (20:10)
[2016-08-06] MEDS: IPRATROPIUM/ALBUTEROL 0.5-2.5 MG/3 ML AMPUL NEB PRN (20:34)
[2016-08-06] MEDS ORDERED: FUROSEMIDE INJ/PF 20 MG/2 ML SDV IV ONE (21:30)
--- NOTE | 2016-08-06 21:46 | RADIOLOGY REPORT (SQ) ---
EXAM DESCRIPTION: CHEST SINGLE VIEW COMPLETED DATE/TIME: 08/06/2016 9:06 pm REASON FOR STUDY: POSSIBLE ASPIRATION COMPARISON: 08/03/2016 EXAM PARAMETERS: NUMBER OF VIEWS: One view. TECHNIQUE: Single frontal radiographic view of the chest acquired. RADIATION DOSE: NA LIMITATIONS: None. FINDINGS: LUNGS AND PLEURA: No opacities, masses or pneumothorax. No pleural effusion. MEDIASTINUM AND HILAR STRUCTURES: No masses. Contour normal. HEART AND VASCULAR STRUCTURES: Cardiac silhouette remains enlarged and is unchanged in configuration. BONES: No acute findings. HARDWARE: Transvenous pacemaker is unchanged in position. OTHER: No other significant finding. IMPRESSION: No significant interval change. Cardiomegaly. No acute infiltrates are identified. Ot her findings as noted above TECHNICAL DOCUMENTATION: JOB ID: [id number]
[2016-08-06] MEDS: ATORVASTATIN CALCIUM 40 MG TABLET PO SCH (21:59)
[2016-08-06] MEDS: INSULIN GLARGINE,HUM.REC.ANLOG 1,000 UNIT/10 ML UNIT SUBCUT SCH (22:03)
[2016-08-07] MEDS: ENALAPRILAT DIHYDRATE INJ/PF 2.5 MG/2 ML SDV IV SCH ×5 (00:45→23:37)
[2016-08-07] MEDS: LANSOPRAZOLE 30 MG TAB.RAP.DR PO SCH (05:11)
[2016-08-07] MEDS: HEPARIN SOD (PORCINE) 5,000 UNIT/ML 1 ML SYRINGE SUBCUT SCH ×3 (05:19→22:03)
[2016-08-07 06:05] LABS: HEMATOCRIT 30.7 % (36.0-47.0); HEMOGLOBIN 9.9 g/dL (12.0-15.5); MEAN CORPUSCULAR HEMOGLOBIN 26.9 pg (27.0-33.4); MEAN CORPUSCULAR HGB CONC 32.4 g/dL (32.0-36.0); MEAN CORPUSCULAR VOLUME 83 fl (80-97); RED CELL DISTRIBUTION WIDTH 14.7 % (11.5-14.0); WHITE BLOOD COUNT 8.2 10^3/uL (4.0-10.5)
[2016-08-07 06:32] LABS: ANION GAP 10 (5-19); BLOOD UREA NITROGEN 47 mg/dL (7-20); CARBON DIOXIDE 25 mmol/L (22-30); CHLORIDE 107 mmol/L (98-107); CREATININE RESULT 1.78 mg/dL (0.52-1.25); GLUCOSE 128 mg/dL (75-110); POTASSIUM 4.1 mmol/L (3.6-5.0); SODIUM 142.3 mmol/L (137-145)
[2016-08-07 06:35] LABS: BAND NEUTROPHILS % (MANUAL) 2 % (3-5); BASOPHILS % (MANUAL) 0 % (0-2); EOSINOPHILS % (MANUAL) 0 % (0-6); LYMPHOCYTES % (MANUAL) 15 % (13-45); TOTAL CELLS COUNTED 100
[2016-08-07 06:36] LABS: ANISOCYTOSIS 1+; OVALOCYTES SLIGHT; POIKILOCYTOSIS SLIGHT
[2016-08-07] MEDS: FUROSEMIDE INJ/PF 20 MG/2 ML SDV IV SCH (11:14)
[2016-08-07] MEDS: CLOPIDOGREL BISULFATE 75 MG TABLET PO SCH (11:15)
[2016-08-07] MEDS: BUDESONIDE/FORMOTEROL 160-4.5 MCG 60 PUFF/6 GM MDI IH SCH ×2 (11:15→22:04)
[2016-08-07] MEDS: LOSARTAN POTASSIUM 50 MG TABLET PO SCH (11:15)
[2016-08-07] MEDS: AMLODIPINE BESYLATE 10 MG TABLET PO SCH (11:15)
[2016-08-07] MEDS: DOCUSATE SODIUM 100 MG CAPSULE PO SCH ×2 (11:15→17:25)
[2016-08-07 14:28] LABS: ALANINE AMINOTRANSFERASE 34 U/L (9-52); ALKALINE PHOSPHATASE 106 U/L (38-126); ASPARTATE AMINO TRANSFERASE 43 U/L (14-36); BILIRUBIN,DIRECT 0.2 mg/dL (0.0-0.4); BILIRUBIN,TOTAL 0.2 mg/dL (0.2-1.3); TOTAL PROTEIN 6.9 g/dL (6.3-8.2)
[2016-08-07] MEDS: FERROUS SULFATE 325 MG TABLET PO SCH (17:25)
[2016-08-07] MEDS: CHOLECALCIFEROL (D3) 1,000 UNIT TABLET PO SCH (17:25)
--- NOTE | 2016-08-07 18:35 | PDOC PROGRESS REPORT ---
Subjective Progress Note for:: 08/07/16 Subjective:: She was seen by the bedside, is seems that she is well optimized medically, she will be transferred back to [facility] tomorrow Physical Exam Vital Signs: Temp Pulse Resp BP Pulse Ox 98.3 F 72 16 144/62 H 100 08/07/16 15:30 08/07/16 15:30 08/07/16 15:30 08/07/16 15:30 08/07/16 15:30 Intake & Output 08/06/16 08/07/16 08/08/16 06:59 06:59 06:59 Intake Total 2157 1374 1030 Output Total 900 2200 600 Balance 1257 -826 430 General appearance: PRESENT: no acute distress Eye exam: PRESENT: PERRLA Respiratory exam: PRESENT: wheezes Cardiovascular exam: PRESENT: +S1, +S2 GI/Abdominal exam: PRESENT: soft Neurological exam: PRESENT: alert Results Laboratory Results: 08/07/16 04:53 08/07/16 04:53 08/07/16 08/07/16 08/07/16 04:53 04:53 04:53 WBC 8.2 RBC 3.70 L Hgb 9.9 L Hct 30.7 L MCV 83 MCH 26.9 L MCHC 32.4 RDW 14.7 H Plt Count 365 Seg Neutrophils % Not Reportable Lymphocytes % Not Reportable Monocytes % Not Reportable Eosinophils % Not Reportable Basophils % Not Reportable Absolute Neutrophils Not Reportable Absolute Lymphocytes Not Reportable Absolute Monocytes Not Reportable Absolute Eosinophils Not Reportable Absolute Basophils Not Reportable Sodium 142.3 Potassium 4.1 Chloride 107 Carbon Dioxide 25 Anion Gap 10 BUN 47 H Creatinine 1.78 H Est GFR ( Amer) 33 L Est GFR (Non-Af Amer) 27 L Glucose 128 H Calcium 9.0 Total Bilirubin 0.2 AST 43 H ALT 34 Alkaline Phosphatase 106 Total Protein 6.9 Albumin 3.0 L 08/07/16 04:50 NT-Pro-B Natriuret Pep 56045 H Impressions: Chest CT 07/25/16 00:00 IMPRESSION: DIFFUSE GROUND-GLASS OPACITIES COMPATIBLE WITH PULMONARY EDEMA ALONG WITH SMALL BILATERAL PLEURAL EFFUSIONS. ADDITIONAL AIRSPACE DISEASE WITHIN THE RIGHT UPPER LOBE AND RIGHT MIDDLE LOBE MAY REPRESENT SUPERIMPOSED PNEUMONIA. CORRELATE WITH FEVER/ELEVATED WHITE BLOOD CELL COUNT. Chest X-Ray 08/06/16 00:00 IMPRESSION: No significant interval change. Cardiomegaly. No acute infiltrates are identified. Other findings as noted above Assessment & Plan - Diagnosis (1) Pneumonia Qualifiers: Pneumonia type: due to unspecified organism Laterality: right Lung location: upper lobe of lung Qualified Code(s): J18.1 - Lobar pneumonia, unspecified organism Is this a current diagnosis for this admission?: Yes (2) Nephrotic syndrome Is this a current diagnosis for this admission?: Yes (3) Chronic kidney disease, stage IV (severe) Is this a current diagnosis for this admission?: Yes (4) Dementia Qualifiers: Dementia type: unspecified type Dementia behavioral disturbance: without behavioral disturbance Qualified Code(s): F03.90 - Unspecified dementia without behavioral disturbance Is this a current diagnosis for this admission?: Yes (5) Diabetes mellitus Qualifiers: Diabetes mellitus type: type 2 Diabetes mellitus complication status: with kidney complications Diabetes mellitus complication detail: with chronic kidney disease Diabetes mellitus intermediate card tender insulin use: with correction use Chronic kidney disease stage: stage 4 (severe) Qualified Code(s): E11.22 - Type 2 diabetes mellitus with diabetic chronic kidney disease ; N18.1 - Chronic kidney disease, stage 1; 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
[2016-08-07] MEDS: CEFTRIAXONE 1 GM/D5W RTU 1 GM/50 ML RTUPB IV SCH (22:00)
[2016-08-07] MEDS: ATORVASTATIN CALCIUM 40 MG TABLET PO SCH (22:02)
[2016-08-07] MEDS: INSULIN GLARGINE,HUM.REC.ANLOG 1,000 UNIT/10 ML UNIT SUBCUT SCH (22:03)
[2016-08-07] MEDS: INSULIN LISPRO 100 UNIT/ML 3 ML VIAL SUBCUT PRN (23:37)
[2016-08-08] MEDS: LANSOPRAZOLE 30 MG TAB.RAP.DR PO SCH (06:02)
[2016-08-08] MEDS: ENALAPRILAT DIHYDRATE INJ/PF 2.5 MG/2 ML SDV IV SCH ×3 (06:02→17:27)
[2016-08-08] MEDS: HEPARIN SOD (PORCINE) 5,000 UNIT/ML 1 ML SYRINGE SUBCUT SCH ×2 (06:02→14:25)
[2016-08-08] MEDS: 1/2 NORMAL SALINE 1,000 ML IV PRN (06:26)
[2016-08-08 10:37] VITALS: BP 158/56
[2016-08-08] MEDS: CLOPIDOGREL BISULFATE 75 MG TABLET PO SCH (11:03)
[2016-08-08] MEDS: LOSARTAN POTASSIUM 50 MG TABLET PO SCH (11:03)
[2016-08-08] MEDS: DOCUSATE SODIUM 100 MG CAPSULE PO SCH ×2 (11:04→17:26)
[2016-08-08] MEDS: FUROSEMIDE INJ/PF 20 MG/2 ML SDV IV SCH (11:04)
[2016-08-08] MEDS: AMLODIPINE BESYLATE 10 MG TABLET PO SCH (11:04)
[2016-08-08] MEDS: BUDESONIDE/FORMOTEROL 160-4.5 MCG 60 PUFF/6 GM MDI IH SCH (11:04)
--- NOTE | 2016-08-08 11:49 | PDOC TRANSFER SUMMARY ---
General - Admit/Disc Date/PCP Admission Date/Primary Care Provider: 07/25/16 20:53 Discharge Date: 08/08/16 - Discharge Diagnosis (1) Pneumonia Is this a current diagnosis for this admission?: Yes (2) Nephrotic syndrome Is this a current diagnosis for this admission?: Yes (3) Chronic kidney disease, stage IV (severe) Is this a current diagnosis for this admission?: Yes (4) Dementia Is this a current diagnosis for this admission?: Yes (5) Diabetes mellitus Is this a current diagnosis for this admission?: Yes (6) Hypernatremia Is this a current diagnosis for this admission?: Yes (8) Hypoalbuminemia Is this a current diagnosis for this admission?: Yes - Additional Information Resuscitation Status: Do Not Resuscitate Home Medications: Acetaminophen [Tylenol 325 mg Tablet] 650 mg PO Q4HP PRN 07/25/16 Amlodipine Besylate [Norvasc 10 mg Tablet] 10 mg PO DAILY 07/25/16 Aspirin [Aspirin 81 mg Chewable Tablet] 81 mg PO DAILY 07/25/16 Budesonide/Formoterol Fumarate [Symbicort HFA 160-4.5 mcg Inhaler 6 gm] 2 puff IH Q12 07/25/16 Carvedilol [Coreg 6.25 mg Tablet] 6.25 mg PO Q12 07/25/16 Cholecalciferol (Vitamin D3) [Vitamin D3 1000 Unit Tablet] 1,000 unit PO DAILY 07/25/16 Docusate Sodium [Colace 100 mg Capsule] 100 mg PO BID 07/25/16 Ferrous Sulfate [Feosol 325 mg Tablet] 325 mg PO DAILY 07/25/16 Furosemide [Lasix 20 mg Tablet] 20 mg PO DAILY 07/25/16 Insulin Glargine,Hum.rec.anlog [Lantus Insulin 100 Unit/1 ml 10 ml] 5 unit SUBCUT QHS 07/25/16 Insulin Lispro [Humalog Insulin (Lispro) 100 unit/mL] 0 unit SUBCUT .SLD SCALE 07/25/16 Lorazepam [Ativan 0.5 mg Tablet] 0.5 mg PO Q12HP PRN 07/25/16 Omeprazole 40 mg PO Q6AM 07/25/16 Sodium Bicarbonate [Sodium Bicarbonate 650 mg Tablet] 650 mg PO TID 07/25/16 Sodium Polystyrene Sulfonate [Kayexalate 15 gm/60 ml Susp 60 ml] 15 gm PO DAILY 07/25/16 Ipratropium/Albuterol Sulfate [Duoneb 3 ml Ampul] 3 ml NEB RTQ2HP PRN #0 vial.neb 08/08/16 Losartan Potassium [Cozaar 50 mg Tablet] 100 mg PO DAILY #0 tablet 08/08/16 History of Present Illness Admission Date/PCP: 07/25/16 20:53 History of Present Illness: AUDRA LANDRY is a 86 year old female, she has advanced dementia, she was transferred from the assisted to the emergency room because of respiratory distress. She was found to be wheezing in the assisted, she was treated with DuoNeb without improvement ,the assisted staff called me to advise me of the fact that she was not getting better, I advised them to transfer her to the emergency room for evaluation. The initial chest x-ray that was done was nondiagnostic, subsequent CT chest without contrast was ordered and it showed diffuse groundglass opacities, possibly due to pulmonary edema with small bilateral pleural effusions ,also found was additional airspace disease within the right upper lobe and right middle lobe which may represent a superimposed pneumonia. The urinalysis that was done showed significant proteinuria, more than 500, urine protein /creatinine ratio was done and it was 9.8 this correlates with 24 hour urine protein suggesting that she has nephrotic range proteinuria/nephrotic syndrome Hospital Course Hospital Course: Patient was transferred from the assisted for evaluation of respiratory distress. Chest x-ray was done that suggest combination of pneumonia and pulmonary edema. She was empirically treated with IV antibiotic to cover for community-acquired pathogens and health-care associated pneumonia because she is a resident of a senior living home. The urine protein creatinine ratio was 9.8 consistent with nephrotic range proteinuria, she had symptoms and signs of nephrotic syndrome including pulmonary edema, wheezing, shortness of breath. She was treated with IV furosemide, the symptoms from the standpoint of wheezing and shortness of breath improved with IV Lasix. She had episode of seizure-like activity, Dr. Landry patient son, a table worker said that whenever she gets dehydrated she would have seizure-like contraction, he suggested that will stop the IV furosemide.. The IV furosemide was stopped and the seizure- like contraction stopped as well. She also developed hypernatremia partly due to decreased intake and due to underlying dementia with loss of thirst mechanism. Patient overall prognosis is guarded the plan is to transfer back to assisted today Physical Exam Vital Signs: Temp Pulse Resp BP Pulse Ox 98.4 F 64 16 158/56 H 100 08/08/16 07:51 08/08/16 07:51 08/08/16 07:51 08/08/16 07:51 08/08/16 07:51 Intake & Output 08/07/16 08/08/16 08/09/16 06:59 06:59 06:59 Intake Total 1374 1410 Output Total 2200 2000 Balance -826 -590 General appearance: PRESENT: no acute distress Eye exam: PRESENT: PERRLA Respiratory exam: PRESENT: clear to auscultation juana Cardiovascular exam: PRESENT: +S1, +S2 GI/Abdominal exam: PRESENT: soft Neurological exam: PRESENT: alert Results Laboratory Results: 08/07/16 04:53 08/07/16 04:53 08/07/16 04:53 Total Bilirubin 0.2 AST 43 H ALT 34 Alkaline Phosphatase 106 Total Protein 6.9 Albumin 3.0 L 08/07/16 04:50 NT-Pro-B Natriuret Pep 47015 H Impressions: Chest CT 07/25/16 00:00 IMPRESSION: DIFFUSE GROUND-GLASS OPACITIES COMPATIBLE WITH PULMONARY EDEMA ALONG WITH SMALL BILATERAL PLEURAL EFFUSIONS. ADDITIONAL AIRSPACE DISEASE WITHIN THE RIGHT UPPER LOBE AND RIGHT MIDDLE LOBE MAY REPRESENT SUPERIMPOSED PNEUMONIA. CORRELATE WITH FEVER/ELEVATED WHITE BLOOD CELL COUNT. Chest X-Ray 08/06/16 00:00 IMPRESSION: No significant interval change. Cardiomegaly. No acute infiltrates are identified. Other findings as noted above Plan Time Spent: Greater than 30 Minutes - Please use a spacer to administer the Symbicort, also try to feed slowly to prevent aspiration
[2016-08-08] MEDS: CHOLECALCIFEROL (D3) 1,000 UNIT TABLET PO SCH (17:26)
[2016-08-08] MEDS: FERROUS SULFATE 325 MG TABLET PO SCH (17:26)
== END 2016-08-08 18:06 | DRG 193 ==
LOC: ER 10:51 → EH 13:20 → UNDOADMIN 13:20 → 4N 14:25 → EH 14:25 → 4N 20:53
PROVIDERS: ADMIT Internal Medicine; ATTEND Internal Medicine
DX: J18.1 Lobar pneumonia, unspecified organism (principal); G93.41 Metabolic encephalopathy; I13.0 Hypertensive heart and chronic kidney disease with heart failure and stage 1 through stage 4 chronic kidney disease, or unspecified chronic kidney disease; N18.4 Chronic kidney disease, stage 4 (severe); G40.89 Other seizures; E87.0 Hyperosmolality and hypernatremia; Z66 Do not resuscitate; E11.21 Type 2 diabetes mellitus with diabetic nephropathy; E11.22 Type 2 diabetes mellitus with diabetic chronic kidney disease; I50.9 Heart failure, unspecified; E78.5 Hyperlipidemia, unspecified; R80.9 Proteinuria, unspecified; K21.9 Gastro-esophageal reflux disease without esophagitis; F03.90 Unspecified dementia, unspecified severity, without behavioral disturbance, psychotic disturbance, mood disturbance, and anxiety; F32.9 Major depressive disorder, single episode, unspecified; J45.909 Unspecified asthma, uncomplicated; K59.00 Constipation, unspecified; Z95.0 Presence of cardiac pacemaker; Z79.82 Long term (current) use of aspirin; Z79.4 Long term (current) use of insulin; Z79.899 Other long term (current) drug therapy; Z79.01 Long term (current) use of anticoagulants
CPT/HCPCS: 36415; 51702; 71010; 71250; 80048; 80053; 80061; 80076; 81001; 82553; 82565; 82570; 82962; 83605; 83735; 83880; 84156; 84484; 85025; 85027; 85610; 85730; 87040; 87086; 87493; 93005; 93010; 93306; 94640; 95819; 96361; 96365; 96375; 99285; J0692; J0696; J1165; J1610; J1644; J1815; J1940; J1956; J3370; J3490; J7030; J7060; J7620

== ENCOUNTER 2016-09-05 19:19 | Emergency (ER) | payer MEDICARE, MEDICAID ==
[2016-09-05] MEDS ORDERED: NORMAL SALINE 1000 ML 500 ML IV ONE (19:35)
[2016-09-05 20:17] LABS: ABSOLUTE EOSINOPHILS # (AUTO) 0.3 10^3/uL (0.0-0.6); ABSOLUTE MONOCYTES (AUTO) 0.5 10^3/uL (0.1-1.4); BASOPHILS % (AUTO) 0.9 % (0-2); EOSINOPHILS % (AUTO) 6.5 % (0-6); HEMATOCRIT 32.3 % (36.0-47.0); HEMOGLOBIN 10.8 g/dL (12.0-15.5); HGB HCT DIFFERENCE 0.1; LYMPHOCYTES % (AUTO) 20.5 % (13-45); MEAN CORPUSCULAR HEMOGLOBIN 28.1 pg (27.0-33.4); MEAN CORPUSCULAR HGB CONC 33.6 g/dL (32.0-36.0); MEAN CORPUSCULAR VOLUME 84 fl (80-97); MONOCYTES % (AUTO) 10.3 % (3-13); RED BLOOD COUNT 3.86 10^6/uL (3.72-5.28); RED CELL DISTRIBUTION WIDTH 15.3 % (11.5-14.0); SEGMENTED NEUTROPHILS % (AUTO) 61.8 % (42-78); WHITE BLOOD COUNT 4.9 10^3/uL (4.0-10.5)
[2016-09-05 20:32] LABS: ALANINE AMINOTRANSFERASE 18 U/L (9-52); ALBUMIN 3.6 g/dL (3.5-5.0); ALKALINE PHOSPHATASE 90 U/L (38-126); ANION GAP 13 (5-19); ASPARTATE AMINO TRANSFERASE 22 U/L (14-36); BILIRUBIN,DIRECT 0.4 mg/dL (0.0-0.4); BILIRUBIN,TOTAL 0.5 mg/dL (0.2-1.3); BLOOD UREA NITROGEN 54 mg/dL (7-20); CALCIUM 8.7 mg/dL (8.4-10.2); CARBON DIOXIDE 21 mmol/L (22-30); CHLORIDE 104 mmol/L (98-107); CREATININE RESULT 2.83 mg/dL (0.52-1.25); GLUCOSE 189 mg/dL (75-110); POTASSIUM 5.4 mmol/L (3.6-5.0); SODIUM 138.4 mmol/L (137-145); TOTAL PROTEIN 7.5 g/dL (6.3-8.2)
[2016-09-05 20:33] LABS: APPEARANCE,URINE CLEAR; BILIRUBIN,URINE NEGATIVE (NEGATIVE); GLUCOSE, URINE 50 mg/dL (NEGATIVE); KETONES,URINE NEGATIVE (NEGATIVE); LEUKOCYTE ESTERASE,URINE TRACE (NEGATIVE); NITRITE,URINE NEGATIVE (NEGATIVE); PROTEIN,URINE 100 mg/dL (NEGATIVE); URINE SPECIFIC GRAVITY 1.009; UROBILINOGEN,URINE NEGATIVE mg/dL (<2.0)
--- NOTE | 2016-09-05 21:02 | RADIOLOGY REPORT (SQ) ---
EXAM DESCRIPTION: CHEST SINGLE VIEW COMPLETED DATE/TIME: 09/05/2016 8:39 pm REASON FOR STUDY: sob, ams COMPARISON: 08/06/2016 NUMBER OF VIEWS: One view. TECHNIQUE: Single frontal radiographic view of the chest acquired. LIMITATIONS: None. FINDINGS: LUNGS AND PLEURA: No opacities, masses or pneumothorax. No pleural effusion. MEDIASTINUM AND HILAR STRUCTURES: No masses or contour abnormality. HEART AND VASCULATURE: Stable, persistent cardiac enlargement. Mild vascular congestion. BONES: No acute findings. HARDWARE: None in the chest. OTHER: No other significant finding. IMPRESSION: Mild vascular congestion in the setting of persistent cardiomegaly suggests early CHF pa ttern. TECHNICAL DOCUMENTATION: JOB ID: [id number] [employer]- All Rights Reserved
[2016-09-05] MEDS ORDERED: FUROSEMIDE INJ/PF 20 MG/2 ML SDV IV ONE (21:31)
--- NOTE | 2016-09-05 21:40 | ER Document Report ---
ED General - General Chief Complaint: General Weakness Stated Complaint: WEAKNESS Time Seen by Provider: 09/05/16 19:33 Cannot obtain history due to: Dementia Notes: Patient is an 86-year-old female who presents from a nursing facility with concerns of altered mentation. No additional history can be provided as patient is nonverbal at baseline. EMS reports only that family was concerned that patient is not acting at her baseline and wanted an evaluation as she has had similar presentations in the past secondary to urinary tract infections and pneumonia. TRAVEL OUTSIDE OF THE [place] IN LAST 30 DAYS: No - Related Data Allergies/Adverse Reactions: No Known Allergies Allergy (Verified 07/25/16 11:38) Past Medical History - General Information source: Emergency Med Personnel Cannot obtain history due to: Dementia - Social History Smoking Status: Unknown if Ever Smoked Lives with: Correction Family History: Reviewed & Not Pertinent - Past Medical History Cardiac Medical History: Reports: Hx Congestive Heart Failure, Hx Coronary Artery Disease, Hx Hypercholesterolemia, Hx Hypertension Pulmonary Medical History: Reports: Hx Asthma, Hx Pneumonia Endocrine Medical History: Reports: Hx Diabetes Mellitus Type 2 Renal/ Medical History: Reports: Hx End Stage Renal Disease. Denies: Hx Peritoneal Dialysis GI Medical History: Reports: Hx Gastroesophageal Reflux Disease Psychiatric Medical History: Reports: Hx Dementia, Hx Depression Past Surgical History: Reports: Hx Pacemaker Review of Systems - Review of Systems -: Yes ROS unobtainable due to patient's medical condition Physical Exam - Vital signs Vitals: Resp Pulse Ox 15 100 09/05/16 19:44 09/05/16 19:44 Interpretation: Normal Notes: PHYSICAL EXAMINATION: GENERAL: Frail, elderly but in no acute distress HEAD: Atraumatic, normocephalic. EYES: Pupils equal round and reactive to light, extraocular movements intact, sclera anicteric, conjunctiva are normal. ENT: nares patent, oropharynx clear without exudates. Moderately dry mucous membranes. NECK: Normal range of motion, supple without lymphadenopathy LUNGS: Breath sounds clear to auscultation bilaterally and equal. No wheezes rales or rhonchi. HEART: Regular rate and rhythm without murmurs ABDOMEN: Soft, nontender, normoactive bowel sounds. No guarding, no rebound. No masses appreciated. EXTREMITIES: Normal range of motion, no pitting or edema. No cyanosis. NEUROLOGICAL: No focal neurological deficits. Moves all extremities spontaneously. PSYCH: Nonverbal SKIN: Warm, Dry, normal turgor, no rashes or lesions noted. Course - Re-evaluation Re-evalutation: 09/05/16 21:36 Presentation and an overall well-appearing patient in no acute distress with concerns of increased generalized weakness/fatigue relative to baseline. She is non-verbal at baseline. At time of evaluation, patient's vitals are within normal limits. Physical examination without focal findings. No neurologic deficits. Basic laboratories including and urinalysis are unremarkable. Troponin is also negative. CXR without evidence of pneumonia. Low clinical suspicion for ACS, occult pneumonia, acute intra-abdominal pathology, stroke, or transient ischemic attack based on clinical history, examination, and laboratories. No evidence of a sacral decubitus ulcer on examination. Patient was given a small amount of fluid and a low dose of Lasix to reduce potassium as well as to prevent fluid overload. I discussed the results of the patient's workup with her son, Dr. Matthews who is in agreement that patient can be discharged back to the nursing facility. At this time will discharge with return precautions and follow-up recommendations. Family is in agreement with this plan and has verbalized understanding of return precautions and the need for primary care follow-up in the next 24-72 hours. - Vital Signs Vital signs: Temp Pulse Resp BP Pulse Ox 97.7 F 60 14 133/60 H 99 09/05/16 22:14 09/05/16 20:20 09/05/16 22:04 09/05/16 22:04 09/05/16 22:04 - Laboratory Result Diagrams: 09/05/16 20:05 09/05/16 20:05 Laboratory results interpreted by me: 09/05/16 09/05/16 09/05/16 20:05 20:05 20:05 Hgb 10.8 L Hct 32.3 L RDW 15.3 H Eosinophils % 6.5 H Potassium 5.4 H Carbon Dioxide 21 L BUN 54 H Creatinine 2.83 H Est GFR ( Amer) 19 L Est GFR (Non-Af Amer) 16 L Glucose 189 H Urine Protein 100 H Urine Glucose (UA) 50 H Ur Leukocyte Esterase TRACE H Urine Ascorbic Acid 20 H - Diagnostic Test Radiology reviewed: Image reviewed, Reports reviewed Radiology results interpreted by me: 09/05/16 21:38 Chest x-ray: Cardiomegaly, vascular congestion but no overt pulmonary Discharge - Discharge Clinical Impression: Acute hyperkalemia, Chronic kidney disease, stage IV (severe) Dementia Qualifiers: Dementia type: unspecified type Dementia behavioral disturbance: without behavioral disturbance Qualified Code(s): F03.90 - Unspecified dementia without behavioral disturbance Condition: Fair Disposition: HOME, SELF-CARE Additional Instructions: Please return to the emergency room immediately if you experience any concerning symptoms including high fevers, severe headache, chest pain, difficulty breathing, abdominal pain, slurred speech, numbness or weakness in your arms or legs, or any other symptom that concerns you. Referrals: CANDICE LUND MD [Primary Care Provider] - Follow up as needed
[2016-09-06 00:30] VITALS: BP 133/60
== END 2016-09-05 22:20 | disposition home or self-care (01) ==
LOC: ER 19:19
DX: E87.5 Hyperkalemia (principal); F03.90 Unspecified dementia, unspecified severity, without behavioral disturbance, psychotic disturbance, mood disturbance, and anxiety; I13.0 Hypertensive heart and chronic kidney disease with heart failure and stage 1 through stage 4 chronic kidney disease, or unspecified chronic kidney disease; J45.909 Unspecified asthma, uncomplicated; I50.9 Heart failure, unspecified; E11.22 Type 2 diabetes mellitus with diabetic chronic kidney disease; N18.6 End stage renal disease; N18.4 Chronic kidney disease, stage 4 (severe); F32.9 Major depressive disorder, single episode, unspecified; Z95.0 Presence of cardiac pacemaker
CPT/HCPCS: 99285; 96361; 96374; 36415; 85025; 80053; 81001; 84484; 71010; J1940; J7030

== ENCOUNTER → 2016-12-15 | Outpatient (CLI) | payer MEDICARE, MEDICAID | LOC: PNR 13:37 | PROVIDERS: ATTEND Internal Medicine | DX: E87.0 Hyperosmolality and hypernatremia (principal); Z53.8 Procedure and treatment not carried out for other reasons ==

== ENCOUNTER → 2017-04-06 | Outpatient (CLI) | payer MEDICARE, MEDICAID ==
[2017-04-06 13:26] LABS: ANION GAP 14 (5-19); BLOOD UREA NITROGEN 43 mg/dL (7-20); CALCIUM 9.1 mg/dL (8.4-10.2); CARBON DIOXIDE 17 mmol/L (22-30); CHLORIDE 108 mmol/L (98-107); GLUCOSE 208 mg/dL (75-110); POTASSIUM 5.6 mmol/L (3.6-5.0); SODIUM 138.8 mmol/L (137-145)
== END ==
LOC: OD 12:18
PROVIDERS: ATTEND Internal Medicine
DX: I12.9 Hypertensive chronic kidney disease with stage 1 through stage 4 chronic kidney disease, or unspecified chronic kidney disease (principal); N18.4 Chronic kidney disease, stage 4 (severe); I50.33 Acute on chronic diastolic (congestive) heart failure; E87.5 Hyperkalemia
CPT/HCPCS: 36415; 80048

== ENCOUNTER 2017-06-16 18:18 | Inpatient (IN) | payer MEDICARE, MEDICAID ==
[2017-06-16 19:19] LABS: ABSOLUTE BASOPHILS # (AUTO) 0.1 10^3/uL (0.0-0.2); ABSOLUTE EOSINOPHILS # (AUTO) 0.8 10^3/uL (0.0-0.6); ABSOLUTE LYMPHOCYTES (AUTO) 1.5 10^3/uL (0.5-4.7); ABSOLUTE MONOCYTES (AUTO) 0.7 10^3/uL (0.1-1.4); ABSOLUTE NEUT (AUTO) 7.3 10^3/uL (1.7-8.2); EOSINOPHILS % (AUTO) 7.7 % (0-6); HEMATOCRIT 34.9 % (36.0-47.0); HEMOGLOBIN 11.5 g/dL (12.0-15.5); LYMPHOCYTES % (AUTO) 14.1 % (13-45); MEAN CORPUSCULAR HEMOGLOBIN 27.6 pg (27.0-33.4); MEAN CORPUSCULAR HGB CONC 33.1 g/dL (32.0-36.0); MEAN CORPUSCULAR VOLUME 84 fl (80-97); MONOCYTES % (AUTO) 6.5 % (3-13); PLATELET COUNT 296 10^3/uL (150-450); RED BLOOD COUNT 4.18 10^6/uL (3.72-5.28); RED CELL DISTRIBUTION WIDTH 14.8 % (11.5-14.0); SEGMENTED NEUTROPHILS % (AUTO) 70.7 % (42-78); TOTAL CELLS COUNTED % (AUTO) 100 %; WHITE BLOOD COUNT 10.3 10^3/uL (4.0-10.5)
--- NOTE | 2017-06-16 19:19 | RADIOLOGY REPORT (SQ) ---
EXAM DESCRIPTION: CHEST SINGLE VIEW COMPLETED DATE/TIME: 06/16/2017 7:01 pm REASON FOR STUDY: AMS COMPARISON: 09/05/2016 EXAM PARAMETERS: NUMBER OF VIEWS: One view. TECHNIQUE: Single frontal radiographic view of the chest acquired. RADIATION DOSE: NA LIMITATIONS: None. FINDINGS: LUNGS AND PLEURA: No opacities, masses or pneumothorax. No pleural effusion. MEDIASTINUM AND HILAR STRUCTURES: No masses. Contour normal. HEART AND VASCULAR STRUCTURES: Borderline cardiomegaly with no joann failure. BONES: No acute findings. HARDWARE: Pacemaker. OTHER: No other significant finding. IMPRESSION: Borderline cardiomegaly without CHF. TECHNICAL DOCUMENTATION: JOB ID: [id number] [employer]- All Rights Reserved Reading location - IP/workstation name: [email or web address]
--- NOTE | 2017-06-16 19:25 | ER Document Report ---
ED General - General Mode of Arrival: Medic Information source: Emergency Med Personnel TRAVEL OUTSIDE OF THE [place] IN LAST 30 DAYS: No - HPI Patient complains to provider of: Bradycardic and possible seizure Onset: This evening Associated symptoms: Other - see notes above <MINA LARA - Last Filed: 06/16/17 20:46> <MARGIKVNG OLIVER - Last Filed: 06/17/17 00:32> - General Chief Complaint: Probable Seizure Stated Complaint: SLOW HEART RATE Time Seen by Provider: 06/16/17 18:21 Notes: 87 year old female with DNR status, history of dementia, CHF, and a pacemaker ( [employer]) presents to the ED via EMS with bradycardia and a possible seizure that occurred earlier this evening at her alf facility. Patient's blood sugar was 50 via EMS. Patient appeared to be altered upon arrival by EMS. A comprehensive HPI is unobtainable secondary to the patient's status. (MINA LARA) - Related Data Allergies/Adverse Reactions: No Known Allergies Allergy (Verified 06/16/17 18:42) Past Medical History - General Information source: Patient - Social History Smoking Status: Unknown if Ever Smoked Chew tobacco use (# tins/day): No Drug Abuse: None Family History: Reviewed & Not Pertinent Patient has suicidal ideation: No Patient has homicidal ideation: No - Past Medical History Cardiac Medical History: Reports: Hx Congestive Heart Failure, Hx Coronary Artery Disease, Hx Hypercholesterolemia, Hx Hypertension Pulmonary Medical History: Reports: Hx Asthma, Hx Pneumonia Endocrine Medical History: Reports: Hx Diabetes Mellitus Type 2 Renal/ Medical History: Reports: Hx End Stage Renal Disease. Denies: Hx Peritoneal Dialysis GI Medical History: Reports: Hx Gastroesophageal Reflux Disease Psychiatric Medical History: Reports: Hx Dementia, Hx Depression Past Surgical History: Reports: Hx Pacemaker <MINA LARA - Last Filed: 06/16/17 20:46> Review of Systems - Review of Systems -: Yes ROS unobtainable due to patient's medical condition - A comprehensive ROS is unobtainable secondary to the patient's status. Cardiovascular: See HPI, Other - bradycardic Neurological/Psychological: See HPI, Seizure - possible <MINA LARA - Last Filed: 06/16/17 20:46> Physical Exam - Vital signs Interpretation: Bradycardic - 30s, Hypoxic - General General appearance: Lethargic In distress: Mild - Respiratory Respiratory status: No respiratory distress Breath sounds: Normal - Cardiovascular Rhythm: Bradycardia - Abdominal Inspection: Normal Bowel sounds: Normal - Extremities General upper extremity: Normal inspection General lower extremity: Normal inspection - Neurological Cognition: Confused Orientation: Disoriented to person [place] Coma Scale Eye Opening: To Voice [place] Coma Scale Verbal: Confused - at baseline [place] Coma Scale Motor: Localizes to Pain [place] Coma Scale Total: 12 - Psychological Associated symptoms: Normal affect, Normal mood - Skin Skin Temperature: Cool Skin Moisture: Dry Skin Color: Normal <KVNG KISER - Last Filed: 06/17/17 00:32> - Vital signs Vitals: Resp 15 06/16/17 18:21 Course - Laboratory Result Diagrams: 06/16/17 18:30 06/16/17 18:30 - Consults Dr. Matthews Time consulted: 19:39 [facility] Time consulted: 19:46 [employer] Time consulted: 19:48 Dr. Watts Time consulted: 20:40 <MINA LARA - Last Filed: 06/16/17 20:46> - Laboratory Result Diagrams: 06/16/17 18:30 06/16/17 18:30 - Diagnostic Test Radiology reviewed: Reports reviewed - EKG Interpretation by Me Rate: Bradycardia <KVNG KISER - Last Filed: 06/17/17 00:32> - Re-evaluation Re-evalutation: 06/16 Patient is an 87-year-old female who is brought in from her facility with possible seizure today. She has had decreased p.o. intake recently. Paperwork states that she is DNR. Patient's blood sugar was low at the alf and she was given glucagon prior to arrival. On presentation, the patient has a heart rate in the 30s. There are pacemaker spikes on EKG but it does not look like it is capturing every time. Patient's blood pressure has been stable here in the emergency department. Per her son, the patient's cognition is at baseline. Pacemaker was interrogated and then discussed with electronic. Adjustments were made so that it would capture and the patient is now pacing at a rate of 60 bpm which is supposed to be her normal rate. She does have a slightly elevated troponin. I have discussed transfer with her son but he would like her to remain here. She is not a surgical candidate. Patient will be admitted to her memory care doctor, Dr. Watts. She is receiving gentle fluid hydration for acute on chronic renal insufficiency. Head CT and chest x- ray within normal limits. Likely lactate and seizure activity from very low heart rate. Stable at time of admission. (KVNG KISER) - Vital Signs Vital signs: Temp Pulse Resp BP Pulse Ox 97.4 F 14 151/49 H 100 06/16/17 21:04 06/16/17 23:31 06/16/17 23:31 06/16/17 23:31 - Laboratory Laboratory results interpreted by al: 06/16/17 06/16/17 06/16/17 18:30 18:30 19:05 Hgb 11.5 L Hct 34.9 L RDW 14.8 H Eosinophils % 7.7 H Absolute Eosinophils 0.8 H BUN 62 H Creatinine 4.50 H Est GFR ( Amer) 11 L Est GFR (Non-Af Amer) 9 L POC Glucose Lactic Acid 3.7 H Magnesium AST 37 H Urine Protein Urine Glucose (UA) Urine Ascorbic Acid 06/16/17 06/16/17 06/16/17 19:30 20:47 21:10 Hgb Hct RDW Eosinophils % Absolute Eosinophils BUN Creatinine Est GFR ( Amer) Est GFR (Non-Af Amer) POC Glucose 131 H Lactic Acid Magnesium 2.5 H AST Urine Protein >=500 H Urine Glucose (UA) 50 H Urine Ascorbic Acid 40 H - Consults Dr. Matthews Reason for consultation: 06/16/17 19:39 Dr. Matthews was called and updated on patient's status. (MINA LARA) [facility] Reason for consultation: 06/16/17 19:46 Patient was discussed with [facility] transfer line. (MINA LARA) [employer] Reason for consultation: 06/16/17 19:48 Patient was discussed with the [employer] rep who agrees to come to [facility]. (MINA LARA) Dr. Watts Reason for consultation: 06/16/17 20:40 Patient was discussed with Dr. Watts who agrees to admit the patient to telemetry. (MINA LARA) Critical Care Note - Critical Care Note Total time excluding time spent on procedures (mins): 45 - Evaluation of bradycardia, evaluation of pacemaker problem, coordination with specialist and getting device reconfigured, coordination of admission, discussion with patient and family <KVNG KISER - Last Filed: 06/17/17 00:32> Discharge <MINA LARA - Last Filed: 06/16/17 20:46> - Discharge Admitting Provider: [facility] Admitted: Telemetry <KVNG KISER - Last Filed: 06/17/17 00:32> - Discharge Clinical Impression: Dehydration Altered mental status Qualifiers: Altered mental status type: unspecified Qualified Code(s): R41.82 - Altered mental status, unspecified Pacemaker complications Qualifiers: Encounter type: initial encounter Qualified Code(s): T82.9XXA - Unspecified complication of cardiac and vascular prosthetic device, implant and graft, initial encounter Condition: Stable Disposition: ADMITTED INPATIENT Scribe Attestation: 06/17/17 00:32 I personally performed the services described in the documentation, reviewed and edited the documentation which was dictated to the scribe in my presence, and it accurately records my words and actions. (KVNG KISER) Scribe Documentation - Scribe Written by Mirianibe:: Duy Ryan, 06/16/20171999 acting as scribe for :: Margi <MINA LARA - Last Filed: 06/16/17 20:46>
[2017-06-16 19:26] LABS: INTERNATIONAL RATION (INR) 1.14; PROTHROMBIN TIME 15.2 SEC (11.4-15.4)
[2017-06-16 19:30] LABS: VENOUS BLOOD BASE EXCESS -1.9 mmol/L; VENOUS BLOOD HCO3 24.2 mmol/L (20-32); VENOUS BLOOD PCO2 46.4 mmHg (35-63); VENOUS BLOOD PH 7.34 (7.30-7.42)
[2017-06-16 19:42] LABS: ALANINE AMINOTRANSFERASE 19 U/L (9-52); ALBUMIN 3.5 g/dL (3.5-5.0); ALKALINE PHOSPHATASE 126 U/L (38-126); ANION GAP 15 (5-19); ASPARTATE AMINO TRANSFERASE 37 U/L (14-36); BILIRUBIN,DIRECT 0.3 mg/dL (0.0-0.4); BILIRUBIN,TOTAL 0.3 mg/dL (0.2-1.3); BLOOD UREA NITROGEN 62 mg/dL (7-20); CALCIUM 9.1 mg/dL (8.4-10.2); CARBON DIOXIDE 23 mmol/L (22-30); CHLORIDE 104 mmol/L (98-107); GLUCOSE 91 mg/dL (75-110); POTASSIUM 4.2 mmol/L (3.6-5.0); SODIUM 142.3 mmol/L (137-145); TOTAL PROTEIN 6.9 g/dL (6.3-8.2)
[2017-06-16] MEDS ORDERED: NORMAL SALINE 1000 ML 1,000 ML IV ONE (20:17)
[2017-06-16 21:33] LABS: APPEARANCE,URINE CLEAR; BILIRUBIN,URINE NEGATIVE (NEGATIVE); COLOR,URINE YELLOW; GLUCOSE, URINE 50 mg/dL (NEGATIVE); KETONES,URINE NEGATIVE (NEGATIVE); LEUKOCYTE ESTERASE,URINE NEGATIVE (NEGATIVE); NITRITE,URINE NEGATIVE (NEGATIVE); PROTEIN,URINE >=500 mg/dL (NEGATIVE); URINE SPECIFIC GRAVITY 1.014; UROBILINOGEN,URINE NEGATIVE mg/dL (<2.0)
--- NOTE | 2017-06-16 21:50 | RADIOLOGY REPORT (SQ) ---
EXAM DESCRIPTION: CT HEAD WITHOUT COMPLETED DATE/TIME: 06/16/2017 7:56 pm REASON FOR STUDY: AMS COMPARISON: None. TECHNIQUE: Axial images acquired through the brain without intravenous contrast. Images reviewed wi th bone, brain and subdural windows. Additional sagittal reconstructions were generated. Images stor ed on PACS. All CT scanners at this facility use dose modulation, iterative reconstruction, and/or weight based d osing when appropriate to reduce radiation dose to as low as reasonably achievable (ALARA). [facility]: Dose Right [facility]: CareDose [facility]: Dose Right [facility]: Teradose 4D [facility]: Smart [employer] RADIATION DOSE: CT Rad equipment meets quality standard of care and radiation dose reduction techniq ues were employed. CTDIvol: 53.2 mGy. DLP: 964 mGy-cm. mGy. LIMITATIONS: There is motion artifact in the head. No coronal reformatted images are available. FINDINGS: VENTRICLES: Prominent ventricles secondary to involutional atrophy. CEREBRUM: No masses. No hemorrhage. No midline shift. Cortical atrophy. Areas of low density in th e white matter most likely chronic small vessel ischemic changes. CEREBELLUM: No masses. No hemorrhage. No alteration of density. No evidence for acute infarction. EXTRAAXIAL SPACES: No fluid collections. No masses. ORBITS AND GLOBE: Poorly seen because of motion. CALVARIUM: No fracture. PARANASAL SINUSES: No fluid or mucosal thickening. SOFT TISSUES: No mass or hematoma. OTHER: No other significant finding. IMPRESSION: Limited study. Microvascular ischemia with generalized atrophy and no acute intracrania l imaging findings. Repeat as clinically indicated. EVIDENCE OF ACUTE STROKE: NO. COMMENT: Quality ID # [id number]: Final reports with documentation of one or more dose reduction techniques (e.g., Automated exposure control, adjustment of the mA and/or kV according to patient size, use of iterative reconstruction technique) TECHNICAL DOCUMENTATION: JOB ID: [id number] [email or web address]- All Rights Reserved Reading location - IP/workstation name: [email or web address]
[2017-06-16] MEDS ORDERED: ACETAMINOPHEN 325 MG TABLET PO PRN (22:02)
[2017-06-16] MEDS ORDERED: SODIUM BICARBONATE 650 MG TABLET PO ONE (22:15)
[2017-06-16] MEDS ORDERED: CARBIDOPA/LEVODOPA 25-100 MG TABLET PO ONE (22:15)
[2017-06-16] MEDS ORDERED: CHOLECALCIFEROL (D3) 1,000 UNIT TABLET PO ONE (22:15)
[2017-06-16] MEDS ORDERED: INSULIN GLARGINE,HUM.REC.ANLOG 300 UNIT/3 ML INSULN.PEN SUBCUT ONE (22:15)
[2017-06-16] MEDS ORDERED: LOSARTAN POTASSIUM 50 MG TABLET PO ONE (22:15)
[2017-06-16] MEDS ORDERED: CARBIDOPA/LEVODOPA 25-100 MG TABLET PO SCH (22:15)
[2017-06-16] MEDS ORDERED: MONTELUKAST SODIUM 10 MG TABLET PO ONE (23:00)
[2017-06-16] MEDS ORDERED: AMLODIPINE BESYLATE 10 MG TABLET PO ONE (23:00)
[2017-06-16] MEDS ORDERED: FERROUS SULFATE 325 MG TABLET PO ONE (23:00)
--- NOTE | 2017-06-16 23:41 | EKG REPORT ---
SEVERITY:- ABNORMAL ECG - PACEMAKER CAPTURE FAILURE OF VENTRICLE A PACED RHYTHM RIGHT BUNDLE BRANCH BLOCK BORDERLINE ST DEPRESSION, LATERAL LEADS : Confirmed by: Toña Matthews 16-Jun-2017 23:41:19
[2017-06-17] MEDS: LANSOPRAZOLE 30 MG TAB.RAP.DR PO SCH (05:26)
[2017-06-17] MEDS: AMLODIPINE BESYLATE 10 MG TABLET PO SCH (10:10)
[2017-06-17] MEDS: FERROUS SULFATE 325 MG TABLET PO SCH (10:11)
[2017-06-17] MEDS: CARBIDOPA/LEVODOPA 25-100 MG TABLET PO SCH ×2 (10:11→22:00)
[2017-06-17] MEDS: CHOLECALCIFEROL (D3) 1,000 UNIT TABLET PO SCH (10:11)
[2017-06-17] MEDS: LOSARTAN POTASSIUM 50 MG TABLET PO SCH (10:12)
[2017-06-17] MEDS: SODIUM BICARBONATE 650 MG TABLET PO SCH ×3 (10:12→17:58)
[2017-06-17] MEDS: NORMAL SALINE 1000 ML 1,000 ML IV PRN (10:14)
[2017-06-17] MEDS ORDERED: IPRATROPIUM/ALBUTEROL 0.5-2.5 MG/3 ML AMPUL NEB PRN (14:07)
[2017-06-17] MEDS: IPRATROPIUM/ALBUTEROL 0.5-2.5 MG/3 ML AMPUL NEB PRN (16:17)
[2017-06-17] MEDS ORDERED: GLUCAGON,HUMAN RECOMB 1 MG INJ IM PRN (17:26)
[2017-06-17] MEDS ORDERED: DEXTROSE 40% GEL 15 GM TUBE PO PRN ×2 (17:26)
[2017-06-17] MEDS ORDERED: DEXTROSE 50%-WATER 25 GM/50 ML DISP.SYRIN IV PRN ×2 (17:26)
--- NOTE | 2017-06-17 20:44 | PDOC H&P ---
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 She was transferred from the longterm to the emergency room for evaluation of severe bradycardia associated with hypo-glycemia. She is dysphasic/aphasic. She has a pacemaker when she arrived in the emergency room there was a pacemaker spike but it does not seem to be capturing any rhythm, the pacemaker was interrogated and was resected. She was also found to have severe lactic acidosis, worsening acute on chronic kidney disease she also had episode of seizure en route to the hospital from the longterm. No history could be obtained from this patient the history is essentially from chart review from the longterm and also from the emergency room. Patient's son is a cushion former on staff in the hospital, he is tangentially involved in the care of his mother Past Medical History Cardiac Medical History: Reports: Congestive Heart Failure, Coronary Artery Disease, Hyperlipidema, Hypertension Pulmonary Medical History: Reports: Asthma, Pneumonia Neurological Medical History: Reports: Ischemic CVA Endocrine Medical History: Reports: Diabetes Mellitus Type 2 Renal/ Medical History: Reports: Other - Chronic kidney disease stage IV GI Medical History: Reports: Gastroesophageal Reflux Disease Psychiatric Medical History: Reports: Dementia, Depression Past Surgical History Past Surgical History: Reports: Pacemaker Social History Smoking Status: Unknown if Ever Smoked Frequency of Alcohol Use: None Hx Recreational Drug Use: No Hx Prescription Drug Abuse: No - Advance Directive Resuscitation Status: Full Code Family History Family History: Reviewed & Not Pertinent Parental Family History Reviewed: Yes Children Family History Reviewed: Yes Sibling(s) Family History Reviewed.: Yes Medication/Allergy Home Medications: Acetaminophen [Tylenol 325 mg Tablet] 650 mg PO Q4HP PRN 06/16/17 Amlodipine Besylate [Norvasc 10 mg Tablet] 10 mg PO DAILY 06/16/17 Aspirin [Aspirin 81 mg Chewable Tablet] 81 mg PO DAILY 06/16/17 Carbidopa/Levodopa [Sinemet 25-100 mg Tablet] 1 tab PO Q12 06/16/17 Carvedilol [Coreg 6.25 mg Tablet] 6.25 mg PO Q12 06/16/17 Cholecalciferol (Vitamin D3) [Vitamin D3 1000 Unit Tablet] 1,000 unit PO DAILY 06/16/17 Docusate Sodium [Colace 100 mg Capsule] 100 mg PO BID 06/16/17 Ferrous Sulfate [Ferosul] 325 mg PO DAILY 06/16/17 Furosemide [Lasix 20 mg Tablet] 20 mg PO QAM 06/16/17 Insulin Glargine,Hum.rec.anlog [Lantus Insulin Inj 300 Unit/3 ml Pen] 7 unit SUBCUT QHS 06/16/17 Insulin Lispro [Humalog Insulin 100 Unit/1 ml 3 ml Vial] 0 unit SUBCUT .SLD SCALE 06/16/17 Ipratropium/Albuterol Sulfate [Duoneb 3 ml Ampul] 3 ml NEB RTQ2HP PRN 06/16/17 Losartan Potassium [Cozaar 100 mg Tablet] 100 mg PO DAILY 06/16/17 Montelukast Sodium [Singulair 10 mg Tablet] 10 mg PO QHS 06/16/17 Omeprazole 40 mg PO Q6AM 06/16/17 Sodium Bicarbonate [Sodium Bicarbonate 650 mg Tablet] 650 mg PO TID 06/16/17 Sodium Polystyrene Sulfonate [Kayexalate 15 Gm/60 Ml Susp 60 Ml] 15 gm PO DAILY 06/16/17 Allergies/Adverse Reactions: No Known Allergies Allergy (Verified 06/16/17 18:42) Review of Systems ROS unobtainable: Due to mental status Physical Exam Vital Signs: Temp Pulse Resp BP Pulse Ox 97.3 F 61 20 149/34 H 100 06/17/17 17:06 06/17/17 19:00 06/17/17 17:06 06/17/17 17:06 06/17/17 17:06 Intake & Output 06/16/17 06/17/17 06/18/17 06:59 06:59 06:59 Intake Total 504 850 Balance 504 850 Weight 55 kg General appearance: PRESENT: no acute distress Eye exam: PRESENT: PERRLA Respiratory exam: PRESENT: wheezes Cardiovascular exam: PRESENT: +S1, +S2 GI/Abdominal exam: PRESENT: soft Neurological exam: PRESENT: altered Results Laboratory Results: 06/16/17 23:09 Lactic Acid 1.5 Impressions: Chest X-Ray 06/16/17 18:21 IMPRESSION: Borderline cardiomegaly without CHF. Head CT 06/16/17 18:22 IMPRESSION: Limited study. Microvascular ischemia with generalized atrophy and no acute intracranial imaging findings. Repeat as clinically indicated. EVIDENCE OF ACUTE STROKE: NO. Assessment & Plan - Diagnosis (1) Acute kidney injury Is this a current diagnosis for this admission?: Yes Plan: This is probably prerenal acute kidney injury despite severe bradycardia the blood pressure recorded was normal she will be slowly hydrated with fluid (2) Pacemaker failure Qualifiers: Encounter type: initial encounter Qualified Code(s): T82.118A - Breakdown ( mechanical) of other cardiac electronic device, initial encounter Is this a current diagnosis for this admission?: Yes Plan: Patient pacemaker was not capturing, interrogation of the pacemaker was done it was resected now capturing (3) Seizure Is this a current diagnosis for this admission?: Yes (4) Dementia Qualifiers: Dementia type: Alzheimer's disease Alzheimer's disease onset: late-onset Is this a current diagnosis for this admission?: Yes (5) Metabolic encephalopathy Is this a current diagnosis for this admission?: Yes Plan: The metabolic encephalopathy is probably from severe bradycardia
[2017-06-17] MEDS: INSULIN GLARGINE,HUM.REC.ANLOG 300 UNIT/3 ML INSULN.PEN SUBCUT SCH (21:59)
[2017-06-17] MEDS: INSULIN LISPRO 100 UNIT/ML 3 ML VIAL SUBCUT PRN (22:00)
[2017-06-17] MEDS: MONTELUKAST SODIUM 10 MG TABLET PO SCH (22:00)
--- NOTE | 2017-06-17 23:38 | EKG REPORT ---
SEVERITY:- ABNORMAL ECG - ATRIAL-VENTRICULAR DUAL-PACED RHYTHM : Confirmed by: Toña Matthews 17-Jun-2017 23:37:35
[2017-06-18] MEDS: LANSOPRAZOLE 30 MG TAB.RAP.DR PO SCH (05:45)
[2017-06-18] MEDS: NORMAL SALINE 1000 ML 1,000 ML IV PRN (05:46)
[2017-06-18 07:53] LABS: ANION GAP 15 (5-19); BLOOD UREA NITROGEN 52 mg/dL (7-20); CALCIUM 8.8 mg/dL (8.4-10.2); CARBON DIOXIDE 26 mmol/L (22-30); CHLORIDE 110 mmol/L (98-107); GLUCOSE 43 mg/dL (75-110); POTASSIUM 4.1 mmol/L (3.6-5.0); SODIUM 151.4 mmol/L (137-145)
[2017-06-18] MEDS ORDERED: DEXTROSE 5%-WATER 1000 ML 1,000 ML IV PRN (08:05)
[2017-06-18] MEDS: FERROUS SULFATE 325 MG TABLET PO SCH (08:48)
[2017-06-18] MEDS: LOSARTAN POTASSIUM 50 MG TABLET PO SCH (08:49)
[2017-06-18] MEDS: CARBIDOPA/LEVODOPA 25-100 MG TABLET PO SCH ×2 (08:49→21:47)
[2017-06-18] MEDS: CHOLECALCIFEROL (D3) 1,000 UNIT TABLET PO SCH (08:49)
[2017-06-18] MEDS: SODIUM BICARBONATE 650 MG TABLET PO SCH ×3 (08:49→18:29)
[2017-06-18] MEDS: AMLODIPINE BESYLATE 10 MG TABLET PO SCH (08:50)
[2017-06-18] MEDS: IPRATROPIUM/ALBUTEROL 0.5-2.5 MG/3 ML AMPUL NEB PRN (16:09)
[2017-06-18 17:47] LABS: ALANINE AMINOTRANSFERASE 17 U/L (9-52); ALBUMIN 3.2 g/dL (3.5-5.0); ALKALINE PHOSPHATASE 123 U/L (38-126); ANION GAP 14 (5-19); ASPARTATE AMINO TRANSFERASE 22 U/L (14-36); BILIRUBIN,DIRECT 0.3 mg/dL (0.0-0.4); BILIRUBIN,TOTAL 0.3 mg/dL (0.2-1.3); BLOOD UREA NITROGEN 47 mg/dL (7-20); CALCIUM 8.3 mg/dL (8.4-10.2); CARBON DIOXIDE 22 mmol/L (22-30); CHLORIDE 111 mmol/L (98-107); GLUCOSE 242 mg/dL (75-110); POTASSIUM 4.1 mmol/L (3.6-5.0); SODIUM 147.3 mmol/L (137-145); TOTAL PROTEIN 6.3 g/dL (6.3-8.2)
[2017-06-18] MEDS: INSULIN LISPRO 100 UNIT/ML 3 ML VIAL SUBCUT PRN (19:21)
--- NOTE | 2017-06-18 21:30 | PDOC PROGRESS REPORT ---
Subjective Progress Note for:: 06/18/17 Subjective:: She was seen by the bedside, she has hypernatremia the fluid therapy was changed to 5% dextrose Reason For Visit: ALTERED MENTAL STATUS Physical Exam Vital Signs: Temp Pulse Resp BP Pulse Ox 98.6 F 72 19 153/85 H 100 06/18/17 19:07 06/18/17 19:07 06/18/17 19:07 06/18/17 19:07 06/18/17 19:07 Intake & Output 06/17/17 06/18/17 06/19/17 06:59 06:59 06:59 Intake Total 504 1718 978 Balance 504 1718 978 Weight 55 kg 55.9 kg General appearance: PRESENT: no acute distress Eye exam: PRESENT: PERRLA Respiratory exam: PRESENT: clear to auscultation juana Cardiovascular exam: PRESENT: +S1, +S2 GI/Abdominal exam: PRESENT: soft Results Laboratory Results: 06/18/17 17:22 06/18/17 06/18/17 06/18/17 06:00 06:00 17:22 Sodium 151.4 H 147.3 H Potassium 4.1 4.1 Chloride 110 H 111 H Carbon Dioxide 26 22 Anion Gap 15 14 BUN 52 H 47 H Creatinine 4.17 H 3.95 H Est GFR ( Amer) 12 L 13 L Est GFR (Non-Af Amer) 10 L 11 L Glucose 43 L 242 H Calcium 8.8 8.3 L Total Bilirubin 0.3 AST 22 ALT 17 Alkaline Phosphatase 123 Total Protein 6.3 Albumin 3.2 L TSH 3.08 Impressions: Chest X-Ray 06/16/17 18:21 IMPRESSION: Borderline cardiomegaly without CHF. Head CT 06/16/17 18:22 IMPRESSION: Limited study. Microvascular ischemia with generalized atrophy and no acute intracranial imaging findings. Repeat as clinically indicated. EVIDENCE OF ACUTE STROKE: NO. Assessment & Plan - Diagnosis (1) Acute kidney injury Is this a current diagnosis for this admission?: Yes (2) Pacemaker failure Qualifiers: Encounter type: initial encounter Qualified Code(s): T82.118A - Breakdown ( mechanical) of other cardiac electronic device, initial encounter Is this a current diagnosis for this admission?: Yes (3) Seizure Is this a current diagnosis for this admission?: Yes (4) Dementia Qualifiers: Dementia type: Alzheimer's disease Alzheimer's disease onset: late-onset Is this a current diagnosis for this admission?: Yes (5) Metabolic encephalopathy Is this a current diagnosis for this admission?: Yes (6) Hypernatremia Is this a current diagnosis for this admission?: Yes Plan: Start 5% dextrose
[2017-06-18] MEDS: MONTELUKAST SODIUM 10 MG TABLET PO SCH (21:47)
[2017-06-18] MEDS: INSULIN GLARGINE,HUM.REC.ANLOG 300 UNIT/3 ML INSULN.PEN SUBCUT SCH (21:47)
[2017-06-19] MEDS: LANSOPRAZOLE 30 MG TAB.RAP.DR PO SCH (05:16)
[2017-06-19] MEDS: IPRATROPIUM/ALBUTEROL 0.5-2.5 MG/3 ML AMPUL NEB PRN ×2 (08:37→13:52)
[2017-06-19] MEDS: FERROUS SULFATE 325 MG TABLET PO SCH (09:46)
[2017-06-19] MEDS: LOSARTAN POTASSIUM 50 MG TABLET PO SCH (09:46)
[2017-06-19] MEDS: CARBIDOPA/LEVODOPA 25-100 MG TABLET PO SCH ×2 (09:46→23:16)
[2017-06-19] MEDS: CHOLECALCIFEROL (D3) 1,000 UNIT TABLET PO SCH (09:46)
[2017-06-19] MEDS: AMLODIPINE BESYLATE 10 MG TABLET PO SCH (09:46)
[2017-06-19] MEDS: SODIUM BICARBONATE 650 MG TABLET PO SCH ×3 (09:47→17:33)
--- NOTE | 2017-06-19 10:45 | PDOC PROGRESS REPORT ---
Subjective Progress Note for:: 06/19/17 Subjective:: Patient is not verbally engaging with baseline dementia. No reported fever or difficulty with breathing. Poor P.O intake. Remain on IV fluid support for hypernatremic dehydration. Nursing staff reported itching type upper extremities movement without obvious cause. Reason For Visit: ALTERED MENTAL STATUS Physical Exam Vital Signs: Temp Pulse Resp BP Pulse Ox 97.5 F 62 16 159/61 H 94 06/19/17 08:00 06/19/17 08:37 06/19/17 08:37 06/19/17 08:00 06/19/17 08:37 Intake & Output 06/18/17 06/19/17 06/20/17 06:59 06:59 06:59 Intake Total 1718 1730 Balance 1718 1730 Weight 55.9 kg 55.7 kg General appearance: PRESENT: no acute distress Head exam: PRESENT: atraumatic, normocephalic Respiratory exam: PRESENT: clear to auscultation juana, decreased breath sounds - at lung bases Cardiovascular exam: PRESENT: RRR, +S1, +S2. ABSENT: diastolic murmur, rubs, systolic murmur Vascular exam: PRESENT: normal capillary refill. ABSENT: pallor GI/Abdominal exam: PRESENT: normal bowel sounds, soft Extremities exam: ABSENT: pedal edema Musculoskeletal exam: PRESENT: normal inspection Neurological exam: PRESENT: altered - with baseline dementia Psychiatric exam: PRESENT: appropriate affect - for her dementia Skin exam: PRESENT: dry, warm Results Laboratory Results: 06/18/17 17:22 06/18/17 17:22 Sodium 147.3 H Potassium 4.1 Chloride 111 H Carbon Dioxide 22 Anion Gap 14 BUN 47 H Creatinine 3.95 H Est GFR ( Amer) 13 L Est GFR (Non-Af Amer) 11 L Glucose 242 H Calcium 8.3 L Total Bilirubin 0.3 AST 22 ALT 17 Alkaline Phosphatase 123 Total Protein 6.3 Albumin 3.2 L Impressions: Chest X-Ray 06/16/17 18:21 IMPRESSION: Borderline cardiomegaly without CHF. Head CT 06/16/17 18:22 IMPRESSION: Limited study. Microvascular ischemia with generalized atrophy and no acute intracranial imaging findings. Repeat as clinically indicated. EVIDENCE OF ACUTE STROKE: NO. Assessment & Plan - Diagnosis (1) Acute kidney injury Is this a current diagnosis for this admission?: Yes Plan: Continue on IV fluid support with adjustment in rate due to her history of CHF. (2) Metabolic encephalopathy Is this a current diagnosis for this admission?: Yes Plan: Related to dehydration and acute decompensation with dementia. (3) Dehydration Is this a current diagnosis for this admission?: Yes Plan: Continue current management. Repeat BMP in AM. (4) Dementia Qualifiers: Dementia type: Alzheimer's disease Alzheimer's disease onset: late-onset Is this a current diagnosis for this admission?: Yes Plan: Continue current management. May be contributing to her ongoing encephalopathy. (5) Hypernatremia Is this a current diagnosis for this admission?: Yes Plan: Continue IV hydration with D5W and adjust her rate of infusion. (7) Pacemaker complications Qualifiers: Encounter type: initial encounter Qualified Code(s): T82.9XXA - Unspecified complication of cardiac and vascular prosthetic device, implant and graft, initial encounter Is this a current diagnosis for this admission?: Yes Plan: Possible new onset atrial fibrillation in view of her residential monitor showing irregularly irregular rhythm. Obtain 12 lead EKG if possible for further evaluation. - Time Time Spent with patient: 25-34 minutes Medications reviewed and adjusted accordingly: Yes Anticipated discharge: SNF Within: Other - Inpatient Certification Based on my medical assessment, after consideration of the patient's comorbidities, presenting symptoms, or acuity I expect that the services needed warrant INPATIENT care.: Yes I certify that my determination is in accordance with my understanding of Medicare's requirements for reasonable and necessary INPATIENT services [42 CFR 412.3e].: Yes Medical Necessity: Need Close Monitoring Due to Risk of Patient Decompensation, Need For IV Fluids, Need For Continuous Telemetry Monitoring, Risk of Complication if Not Cared For in Hospital Post Hospital Care: D/C or Transfer Summary - Plan Summary Plan Summary: See covering attending physician orders.
[2017-06-19] MEDS: INSULIN LISPRO 100 UNIT/ML 3 ML VIAL SUBCUT PRN (16:50)
[2017-06-19] MEDS: DEXTROSE 5%-WATER 1000 ML 1,000 ML IV PRN (17:34)
[2017-06-19] MEDS: INSULIN GLARGINE,HUM.REC.ANLOG 300 UNIT/3 ML INSULN.PEN SUBCUT SCH (23:14)
[2017-06-19] MEDS: MONTELUKAST SODIUM 10 MG TABLET PO SCH (23:16)
[2017-06-20] MEDS: DEXTROSE 5%-WATER 1000 ML 1,000 ML IV PRN (06:27)
[2017-06-20] MEDS: LANSOPRAZOLE 30 MG TAB.RAP.DR PO SCH (06:27)
[2017-06-20 07:03] LABS: ANION GAP 14 (5-19); BLOOD UREA NITROGEN 41 mg/dL (7-20); CALCIUM 8.7 mg/dL (8.4-10.2); CARBON DIOXIDE 21 mmol/L (22-30); CHLORIDE 110 mmol/L (98-107); GLUCOSE 71 mg/dL (75-110); SODIUM 145.4 mmol/L (137-145)
[2017-06-20] MEDS: IPRATROPIUM/ALBUTEROL 0.5-2.5 MG/3 ML AMPUL NEB PRN ×2 (08:25→14:31)
[2017-06-20] MEDS: LOSARTAN POTASSIUM 50 MG TABLET PO SCH (09:23)
[2017-06-20] MEDS: CHOLECALCIFEROL (D3) 1,000 UNIT TABLET PO SCH (09:24)
[2017-06-20] MEDS: CARBIDOPA/LEVODOPA 25-100 MG TABLET PO SCH ×2 (09:24→22:42)
[2017-06-20] MEDS: AMLODIPINE BESYLATE 10 MG TABLET PO SCH (09:24)
[2017-06-20] MEDS: FERROUS SULFATE 325 MG TABLET PO SCH (09:24)
[2017-06-20] MEDS: SODIUM BICARBONATE 650 MG TABLET PO SCH ×3 (09:25→17:25)
--- NOTE | 2017-06-20 10:57 | PDOC PROGRESS REPORT ---
Subjective Progress Note for:: 06/20/17 Subjective:: No reported fever or difficulty with breathing. P.O intake is improving with assisted feeding this morning Remain on IV fluid support for hypernatremic dehydration. Reason For Visit: ALTERED MENTAL STATUS Physical Exam Vital Signs: Temp Pulse Resp BP Pulse Ox 98.3 F 60 18 132/67 H 97 06/20/17 03:47 06/20/17 08:25 06/20/17 08:25 06/20/17 03:47 06/20/17 08:25 Intake & Output 06/19/17 06/20/17 06/21/17 06:59 06:59 06:59 Intake Total 1730 1655 Balance 1730 1655 Weight 55.7 kg 55.9 kg Physical Exam: General appearance: PRESENT: no acute distress Head exam: PRESENT: atraumatic, normocephalic Respiratory exam: PRESENT: clear to auscultation juana, decreased breath sounds - at lung bases Cardiovascular exam: PRESENT: RRR, +S1, +S2. ABSENT: diastolic murmur, rubs, systolic murmur Vascular exam: ABSENT: pallor GI/Abdominal exam: PRESENT: normal bowel sounds, soft Extremities exam: ABSENT: pedal edema Musculoskeletal exam: PRESENT: normal inspection Neurological exam: PRESENT: altered - with baseline dementia Psychiatric exam: PRESENT: appropriate affect - for her dementia Skin exam: PRESENT: dry, warm Results Laboratory Results: 06/20/17 06:16 06/20/17 06:16 Sodium 145.4 H Potassium 4.0 Chloride 110 H Carbon Dioxide 21 L Anion Gap 14 BUN 41 H Creatinine 3.78 H Est GFR ( Amer) 14 L Est GFR (Non-Af Amer) 11 L Glucose 71 L Calcium 8.7 Impressions: Chest X-Ray 06/16/17 18:21 IMPRESSION: Borderline cardiomegaly without CHF. Head CT 06/16/17 18:22 IMPRESSION: Limited study. Microvascular ischemia with generalized atrophy and no acute intracranial imaging findings. Repeat as clinically indicated. EVIDENCE OF ACUTE STROKE: NO. Assessment & Plan - Diagnosis (1) Acute kidney injury Is this a current diagnosis for this admission?: Yes (2) Metabolic encephalopathy Is this a current diagnosis for this admission?: Yes (3) Dehydration Is this a current diagnosis for this admission?: Yes (4) Dementia Qualifiers: Dementia type: Alzheimer's disease Alzheimer's disease onset: late-onset Is this a current diagnosis for this admission?: Yes (5) Hypernatremia Is this a current diagnosis for this admission?: Yes (7) Pacemaker complications Qualifiers: Encounter type: initial encounter Qualified Code(s): T82.9XXA - Unspecified complication of cardiac and vascular prosthetic device, implant and graft, initial encounter Is this a current diagnosis for this admission?: Yes - Time Time Spent with patient: 25-34 minutes Medications reviewed and adjusted accordingly: Yes Anticipated discharge: SNF Within: Other - Inpatient Certification Based on my medical assessment, after consideration of the patient's comorbidities, presenting symptoms, or acuity I expect that the services needed warrant INPATIENT care.: Yes I certify that my determination is in accordance with my understanding of Medicare's requirements for reasonable and necessary INPATIENT services [42 CFR 412.3e].: Yes Medical Necessity: Need Close Monitoring Due to Risk of Patient Decompensation, Need For IV Fluids, Need For Continuous Telemetry Monitoring, Risk of Complication if Not Cared For in Hospital Post Hospital Care: D/C or Transfer Summary - Plan Summary Plan Summary: See covering attending physician orders.
[2017-06-20] MEDS: MULTIVIT-STRESS FORMULA/ZINC TABLET PO SCH (11:08)
[2017-06-20] MEDS: MONTELUKAST SODIUM 10 MG TABLET PO SCH (22:43)
[2017-06-20] MEDS: INSULIN GLARGINE,HUM.REC.ANLOG 300 UNIT/3 ML INSULN.PEN SUBCUT SCH (22:43)
[2017-06-21] MEDS: DEXTROSE 5%-WATER 1000 ML 1,000 ML IV PRN (05:10)
[2017-06-21] MEDS: LANSOPRAZOLE 30 MG TAB.RAP.DR PO SCH (05:17)
[2017-06-21] MEDS: AMLODIPINE BESYLATE 10 MG TABLET PO SCH (10:51)
[2017-06-21] MEDS: LOSARTAN POTASSIUM 50 MG TABLET PO SCH (10:51)
[2017-06-21] MEDS: SODIUM BICARBONATE 650 MG TABLET PO SCH ×3 (10:51→17:21)
[2017-06-21] MEDS: FERROUS SULFATE 325 MG TABLET PO SCH (10:51)
[2017-06-21] MEDS: CARBIDOPA/LEVODOPA 25-100 MG TABLET PO SCH ×2 (10:51→23:00)
[2017-06-21] MEDS: CHOLECALCIFEROL (D3) 1,000 UNIT TABLET PO SCH (10:51)
[2017-06-21] MEDS: MULTIVIT-STRESS FORMULA/ZINC TABLET PO SCH (13:00)
[2017-06-21] MEDS: IPRATROPIUM/ALBUTEROL 0.5-2.5 MG/3 ML AMPUL NEB PRN ×2 (13:25→23:24)
[2017-06-21 13:59] LABS: HEMATOCRIT 27.6 % (36.0-47.0); HEMOGLOBIN 9.4 g/dL (12.0-15.5); MEAN CORPUSCULAR HEMOGLOBIN 28.1 pg (27.0-33.4); MEAN CORPUSCULAR HGB CONC 34.1 g/dL (32.0-36.0); MEAN CORPUSCULAR VOLUME 83 fl (80-97); PLATELET COUNT 215 10^3/uL (150-450); RED BLOOD COUNT 3.34 10^6/uL (3.72-5.28); RED CELL DISTRIBUTION WIDTH 14.6 % (11.5-14.0); WHITE BLOOD COUNT 7.5 10^3/uL (4.0-10.5)
[2017-06-21 14:13] LABS: ANION GAP 12 (5-19); BLOOD UREA NITROGEN 35 mg/dL (7-20); CALCIUM 8.9 mg/dL (8.4-10.2); CARBON DIOXIDE 22 mmol/L (22-30); CHLORIDE 104 mmol/L (98-107); GLUCOSE 142 mg/dL (75-110); POTASSIUM 4.1 mmol/L (3.6-5.0); SODIUM 138.4 mmol/L (137-145)
[2017-06-21] MEDS ORDERED: FUROSEMIDE INJ/PF 40 MG/4 ML SDV IV ONE (19:30)
[2017-06-21] MEDS: INSULIN GLARGINE,HUM.REC.ANLOG 300 UNIT/3 ML INSULN.PEN SUBCUT SCH (21:43)
--- NOTE | 2017-06-21 22:03 | PDOC PROGRESS REPORT ---
Subjective Progress Note for:: 06/21/17 Subjective:: Patient seen by the bedside, third spacing She has hypoalbuminemia, nephrotic range proteinuria Reason For Visit: ALTERED MENTAL STATUS Physical Exam Vital Signs: Temp Pulse Resp BP Pulse Ox 98.3 F 63 18 125/29 L 98 06/21/17 15:56 06/21/17 19:00 06/21/17 15:56 06/21/17 15:56 06/21/17 15:56 Intake & Output 06/20/17 06/21/17 06/22/17 06:59 06:59 06:59 Intake Total 1655 1969 376 Balance 1655 1969 376 Weight 55.9 kg 56.4 kg General appearance: PRESENT: no acute distress Eye exam: PRESENT: PERRLA Cardiovascular exam: PRESENT: +S1, +S2 GI/Abdominal exam: PRESENT: soft Extremities exam: PRESENT: pedal edema Neurological exam: PRESENT: alert Results Laboratory Results: 06/21/17 13:49 06/21/17 13:49 06/21/17 06/21/17 06/21/17 13:49 13:49 13:49 WBC 7.5 RBC 3.34 L Hgb 9.4 L Hct 27.6 L MCV 83 MCH 28.1 MCHC 34.1 RDW 14.6 H Plt Count 215 Sodium 138.4 Potassium 4.1 Chloride 104 Carbon Dioxide 22 Anion Gap 12 BUN 35 H Creatinine 3.80 H Est GFR ( Amer) 14 L Est GFR (Non-Af Amer) 11 L Glucose 142 H Calcium 8.9 Albumin 3.0 L Impressions: Chest X-Ray 06/16/17 18:21 IMPRESSION: Borderline cardiomegaly without CHF. Head CT 06/16/17 18:22 IMPRESSION: Limited study. Microvascular ischemia with generalized atrophy and no acute intracranial imaging findings. Repeat as clinically indicated. EVIDENCE OF ACUTE STROKE: NO. Assessment & Plan - Diagnosis (1) Acute kidney injury Is this a current diagnosis for this admission?: Yes (2) Pacemaker failure Qualifiers: Encounter type: initial encounter Qualified Code(s): T82.118A - Breakdown ( mechanical) of other cardiac electronic device, initial encounter Is this a current diagnosis for this admission?: Yes (3) Seizure Is this a current diagnosis for this admission?: Yes (4) Dementia Qualifiers: Dementia type: Alzheimer's disease Alzheimer's disease onset: late-onset Is this a current diagnosis for this admission?: Yes (5) Metabolic encephalopathy Is this a current diagnosis for this admission?: Yes (6) Hypernatremia Is this a current diagnosis for this admission?: Yes Plan: Continue treatment
[2017-06-21] MEDS: MONTELUKAST SODIUM 10 MG TABLET PO SCH (23:00)
[2017-06-22 05:03] LABS: URINE CREATININE 20.7 mg/dL (15-278); URINE PROTEIN 83.7 mg/dL (<12)
[2017-06-22] MEDS: LANSOPRAZOLE 30 MG TAB.RAP.DR PO SCH (05:57)
[2017-06-22 07:21] LABS: ALANINE AMINOTRANSFERASE 13 U/L (9-52); ALBUMIN 3.1 g/dL (3.5-5.0); ALKALINE PHOSPHATASE 108 U/L (38-126); ANION GAP 13 (5-19); ASPARTATE AMINO TRANSFERASE 25 U/L (14-36); BILIRUBIN,DIRECT 0.5 mg/dL (0.0-0.4); BILIRUBIN,TOTAL 0.7 mg/dL (0.2-1.3); BLOOD UREA NITROGEN 38 mg/dL (7-20); CARBON DIOXIDE 19 mmol/L (22-30); CHLORIDE 108 mmol/L (98-107); GLUCOSE 125 mg/dL (75-110); POTASSIUM 4.5 mmol/L (3.6-5.0); SODIUM 139.9 mmol/L (137-145); TOTAL PROTEIN 6.2 g/dL (6.3-8.2)
--- NOTE | 2017-06-22 08:37 | RADIOLOGY REPORT (SQ) ---
EXAM DESCRIPTION: CHEST SINGLE VIEW COMPLETED DATE/TIME: 06/22/2017 8:05 am REASON FOR STUDY: wheezing COMPARISON: 06/16/2017 EXAM PARAMETERS: NUMBER OF VIEWS: One view. TECHNIQUE: Single frontal radiographic view of the chest acquired. RADIATION DOSE: NA LIMITATIONS: None. FINDINGS: LUNGS AND PLEURA: No opacities, masses or pneumothorax. No pleural effusion. MEDIASTINUM AND HILAR STRUCTURES: No masses. Contour normal. HEART AND VASCULAR STRUCTURES: Stable borderline cardiomegaly. BONES: Pacing electrodes intact. HARDWARE: None in the chest. OTHER: No other significant finding. IMPRESSION: No acute findings. Stable borderline cardiomegaly. TECHNICAL DOCUMENTATION: JOB ID: [id number] [employer]- All Rights Reserved Reading location - IP/workstation name: [email or web address]
[2017-06-22] MEDS: SODIUM BICARBONATE 650 MG TABLET PO SCH ×3 (09:29→17:57)
[2017-06-22] MEDS: LOSARTAN POTASSIUM 50 MG TABLET PO SCH (09:29)
[2017-06-22] MEDS: CARBIDOPA/LEVODOPA 25-100 MG TABLET PO SCH ×2 (09:29→22:37)
[2017-06-22] MEDS: FUROSEMIDE INJ/PF 40 MG/4 ML SDV IV SCH (09:30)
[2017-06-22] MEDS: AMLODIPINE BESYLATE 10 MG TABLET PO SCH (09:30)
[2017-06-22] MEDS: FERROUS SULFATE 325 MG TABLET PO SCH (09:30)
[2017-06-22] MEDS: CHOLECALCIFEROL (D3) 1,000 UNIT TABLET PO SCH (09:31)
[2017-06-22] MEDS: IPRATROPIUM/ALBUTEROL 0.5-2.5 MG/3 ML AMPUL NEB PRN ×2 (11:36→15:47)
[2017-06-22] MEDS: MULTIVIT-STRESS FORMULA/ZINC TABLET PO SCH (12:26)
--- NOTE | 2017-06-22 21:30 | PDOC PROGRESS REPORT ---
Subjective Progress Note for:: 06/22/17 Subjective:: She has baseline dementia, no new complaints Reason For Visit: ALTERED MENTAL STATUS Physical Exam Vital Signs: Temp Pulse Resp BP Pulse Ox 98.8 F 65 16 149/58 H 100 06/22/17 16:00 06/22/17 16:00 06/22/17 16:00 06/22/17 16:00 06/22/17 16:00 Intake & Output 06/21/17 06/22/17 06/23/17 06:59 06:59 06:59 Intake Total 1969 552 696 Balance 1969 552 696 Weight 56.4 kg 56.4 kg General appearance: PRESENT: mild distress Eye exam: PRESENT: PERRLA Respiratory exam: PRESENT: decreased breath sounds Cardiovascular exam: PRESENT: +S1, +S2 GI/Abdominal exam: PRESENT: soft Results Laboratory Results: 06/21/17 13:49 06/22/17 06:43 06/22/17 06:43 Sodium 139.9 Potassium 4.5 Chloride 108 H Carbon Dioxide 19 L Anion Gap 13 BUN 38 H Creatinine 3.85 H Est GFR ( Amer) 13 L Est GFR (Non-Af Amer) 11 L Glucose 125 H Calcium 9.0 Total Bilirubin 0.7 AST 25 ALT 13 Alkaline Phosphatase 108 Total Protein 6.2 L Albumin 3.1 L Impressions: Head CT 06/16/17 18:22 IMPRESSION: Limited study. Microvascular ischemia with generalized atrophy and no acute intracranial imaging findings. Repeat as clinically indicated. EVIDENCE OF ACUTE STROKE: NO. Chest X-Ray 06/22/17 08:00 IMPRESSION: No acute findings. Stable borderline cardiomegaly. Assessment & Plan - Diagnosis (1) Acute kidney injury Is this a current diagnosis for this admission?: Yes (2) Pacemaker failure Qualifiers: Encounter type: initial encounter Qualified Code(s): T82.118A - Breakdown ( mechanical) of other cardiac electronic device, initial encounter Is this a current diagnosis for this admission?: Yes (3) Seizure Is this a current diagnosis for this admission?: Yes (4) Dementia Qualifiers: Dementia type: Alzheimer's disease Alzheimer's disease onset: late-onset Is this a current diagnosis for this admission?: Yes (5) Metabolic encephalopathy Is this a current diagnosis for this admission?: Yes (6) Hypernatremia Is this a current diagnosis for this admission?: Yes
[2017-06-22] MEDS: INSULIN GLARGINE,HUM.REC.ANLOG 300 UNIT/3 ML INSULN.PEN SUBCUT SCH (22:29)
[2017-06-22] MEDS: MONTELUKAST SODIUM 10 MG TABLET PO SCH (22:37)
[2017-06-23] MEDS: LANSOPRAZOLE 30 MG TAB.RAP.DR PO SCH (04:34)
[2017-06-23] MEDS: CHOLECALCIFEROL (D3) 1,000 UNIT TABLET PO SCH (09:22)
[2017-06-23] MEDS: LOSARTAN POTASSIUM 50 MG TABLET PO SCH (09:22)
[2017-06-23] MEDS: CARBIDOPA/LEVODOPA 25-100 MG TABLET PO SCH ×2 (09:22→21:15)
[2017-06-23] MEDS: FERROUS SULFATE 325 MG TABLET PO SCH (09:22)
[2017-06-23] MEDS: SODIUM BICARBONATE 650 MG TABLET PO SCH ×3 (09:22→18:01)
[2017-06-23] MEDS: AMLODIPINE BESYLATE 10 MG TABLET PO SCH (09:22)
[2017-06-23] MEDS: FUROSEMIDE INJ/PF 40 MG/4 ML SDV IV SCH (09:23)
[2017-06-23] MEDS: MULTIVIT-STRESS FORMULA/ZINC TABLET PO SCH (13:04)
[2017-06-23] MEDS: IPRATROPIUM/ALBUTEROL 0.5-2.5 MG/3 ML AMPUL NEB PRN (13:46)
--- NOTE | 2017-06-23 18:18 | PDOC CONSULTATION ---
Consultation Consult Date: 06/23/17 Attending physician:: CANDICE LUND Consult reason:: I was asked to see this patient because of nephrotic range proteinuria, and advance chronic kidney disease with an episode of AK I. History of Present Illness Admission Date/PCP: 06/16/17 21:43 History of Present Illness: AUDRA MATTHEWS is a 87 year old female with history of dementia, chronic kidney disease baseline stage IV secondary to most likely diabetic nephropathy with nephrotic range proteinuria, coronary artery disease, with baseline aphasia who was admitted to the hospital on June 16 because of severe bradycardia and hypoglycemia. History is obtained from records since the patient is unable to give any history. On admission the patient was found to have a malfunctioning pacemaker, severe lactic acidosis, had an episode of seizure in route to the hospital, and acute on chronic kidney disease. Her initial kidney function include a BUN of 62 creatinine of 4.5 with estimated GFR of 9 and today she has a BUN of 38, creatinine of 2.85 and an estimated GFR of 11. She was initially hydrated and currently was given Lasix yesterday and today 40 mg intravenously. She is also maintained on losartan which was held today after the dose. Patient's urine output cannot be determined means and she does not have a Corona catheter and she is incontinent. Patient has mildly low bicarbonate at 19 and she is on sodium bicarbonate. Her potassium is so far within acceptable limits. She has nephrotic range proteinuria with urine protein to creatinine ratio 4. Back in July 2016 her urine protein to creatinine ratio were as high as 9.8. Review of records revealed that her baseline BUN is been anywhere between 30-60, creatinine 2.5-2.8, and estimated GFR of 15-20 at least for the past year. However since last month the patient's kidney function tests which and estimated GFR consistent with stage V. Patient has a CODE STATUS of DO NOT RESUSCITATE. Past Medical History Cardiac Medical History: Reports: CHF-Diastolic, Coronary Artery Disease, Hyperlipidemia, Hypertension-primary Pulmonary Medical History: Reports: Asthma, Pneumonia Neurological Medical History: Reports: Ischemic CVA Endocrine Medical History: Reports: Diabetes Mellitus Type 2 Renal/ Medical History: Reports: Chronic Kidney Disease Stage IV GI Medical History: Reports: Gastroesophageal Reflux Disease Psychiatric Medical History: Reports: Dementia, Depression Past Surgical History Past Surgical History: Reports: Pacemaker Social History Information Source: [facility] Records Smoking Status: Unknown if Ever Smoked Frequency of Alcohol Use: None Hx Recreational Drug Use: No Hx Prescription Drug Abuse: No - Advance Directive Resuscitation Status: Do Not Resuscitate Surrogate healthcare decision maker:: Her daughter Family History Family History: Reviewed & Not Pertinent Parental Family History Reviewed: Yes Children Family History Reviewed: Unknown Sibling(s) Family History Reviewed.: Unknown Medication/Allergy Home Medications: Acetaminophen [Tylenol 325 mg Tablet] 650 mg PO Q4HP PRN 06/16/17 Amlodipine Besylate [Norvasc 10 mg Tablet] 10 mg PO DAILY 06/16/17 Aspirin [Aspirin 81 mg Chewable Tablet] 81 mg PO DAILY 06/16/17 Carbidopa/Levodopa [Sinemet 25-100 mg Tablet] 1 tab PO Q12 06/16/17 Carvedilol [Coreg 6.25 mg Tablet] 6.25 mg PO Q12 06/16/17 Cholecalciferol (Vitamin D3) [Vitamin D3 1000 Unit Tablet] 1,000 unit PO DAILY 06/16/17 Docusate Sodium [Colace 100 mg Capsule] 100 mg PO BID 06/16/17 Ferrous Sulfate [Ferosul] 325 mg PO DAILY 06/16/17 Furosemide [Lasix 20 mg Tablet] 20 mg PO QAM 06/16/17 Insulin Glargine,Hum.rec.anlog [Lantus Insulin Inj 300 Unit/3 ml Pen] 7 unit SUBCUT QHS 06/16/17 Insulin Lispro [Humalog Insulin 100 Unit/1 ml 3 ml Vial] 0 unit SUBCUT .SLD SCALE 06/16/17 Ipratropium/Albuterol Sulfate [Duoneb 3 ml Ampul] 3 ml NEB RTQ2HP PRN 06/16/17 Losartan Potassium [Cozaar 100 mg Tablet] 100 mg PO DAILY 06/16/17 Montelukast Sodium [Singulair 10 mg Tablet] 10 mg PO QHS 06/16/17 Omeprazole 40 mg PO Q6AM 06/16/17 Sodium Bicarbonate [Sodium Bicarbonate 650 mg Tablet] 650 mg PO TID 06/16/17 Sodium Polystyrene Sulfonate [Kayexalate 15 Gm/60 Ml Susp 60 Ml] 15 gm PO DAILY 06/16/17 Allergies/Adverse Reactions: No Known Allergies Allergy (Verified 06/16/17 18:42) Review of Systems ROS unobtainable: Due to mental status Physical Exam Vital Signs: Temp Pulse Resp BP Pulse Ox 98.0 F 71 20 143/57 H 100 06/23/17 15:37 06/23/17 15:37 06/23/17 15:37 06/23/17 15:37 06/23/17 15:37 Intake & Output 06/22/17 06/23/17 06/24/17 06:59 06:59 06:59 Intake Total 552 814 Balance 552 814 Weight 56.4 kg 56.2 kg Exam: General appearance: no acute distress, cooperative, aphasic and nonverbal Head exam: PRESENT: atraumatic, normocephalic Eye exam: PRESENT: Conjunctiva pale, EOMI, PERRLA. ABSENT: conjunctival injection, scleral icterus Mouth exam: PRESENT: moist, neck supple, tongue midline Neck exam: PRESENT: full ROM. ABSENT: carotid bruit, JVD, lymphadenopathy, thyromegaly Respiratory exam: PRESENT: Diminished to auscultation bilaterally. ABSENT: rales, rhonchi, stridor, wheezes Cardiovascular exam: PRESENT: RRR, +S1, +S2. Grade 2/6 systolic murmur Pulses: PRESENT: normal radial pulses, normal dorsalis pedis pulses GI/Abdominal exam: PRESENT: normal bowel sounds, soft. ABSENT: guarding, mass, tenderness Rectal exam: deferred Extremities exam: PRESENT: full ROM. She has bilateral upper extremity edema more on the right than on the left, bilateral thigh grade 1 pitting edema but no edema on the lower extremities in the feet ABSENT: calf tenderness Musculoskeletal: PRESENT: full ROM. ABSENT: deformity Neurological exam: PRESENT: alert, Awake, he seems to have minimal spontaneous movements of her upper extremities Psychiatric exam: PRESENT: appropriate affect, normal mood. ABSENT: homicidal ideation, suicidal ideation Skin exam: PRESENT: intact, dry, warm. ABSENT: rash Results Laboratory Results: 06/21/17 13:49 06/22/17 06:43 Impressions: Head CT 06/16/17 18:22 IMPRESSION: Limited study. Microvascular ischemia with generalized atrophy and no acute intracranial imaging findings. Repeat as clinically indicated. EVIDENCE OF ACUTE STROKE: NO. Chest X-Ray 06/22/17 08:00 IMPRESSION: No acute findings. Stable borderline cardiomegaly. Assessment & Plan - Diagnosis (1) Acute kidney injury Is this a current diagnosis for this admission?: Yes Plan: This could be secondary to relative volume depletion causing prerenal azotemia. This is improved and I believe patient is probably close to her baseline kidney function. Urine output cannot be quantified at this time. (2) Chronic kidney disease, stage V Is this a current diagnosis for this admission?: Yes Plan: For the past month I think the patient's kidney function has progressively deteriorated to the level of chronic kidney disease stage V. Ideally patient would need to be initiated on renal replacement therapy in the form of hemodialysis. However due to her comorbid conditions including her dementia, cardiac condition, severe debility she is not a good candidate for any chronic dialysis treatment. I would recommend medical management if not hospice care or comfort measures only in this patient. Patient is a candidate for hospice at this point. For continued medical management I would check the patient's phosphorus, PTH, and iron panel. I would recommend maintenance Lasix of 40 mg orally and continuation of losartan 100 mg p.o. daily. I do not think placing a Corona catheter will help us with anything aside from aggravating the patient. I discussed my assessment and above recommendation with Dr. Lund and her son Dr. Matthews. (3) Diabetic nephropathy Is this a current diagnosis for this admission?: Yes Plan: Associated with nephrotic range proteinuria and hypoalbuminemia. (4) Diabetes mellitus Qualifiers: Diabetes mellitus type: type 2 Diabetes mellitus intermodal dispatcher insulin use: with snf use Diabetes mellitus complication status: with kidney complications Diabetes mellitus complication detail: with chronic kidney disease Chronic kidney disease stage: stage 4 (severe) Qualified Code(s): E11.22 - Type 2 diabetes mellitus with diabetic chronic kidney disease (5) Nephrotic syndrome Is this a current diagnosis for this admission?: Yes (6) Hypoalbuminemia Is this a current diagnosis for this admission?: Yes (7) Metabolic acidosis Is this a current diagnosis for this admission?: Yes Plan: Continue oral sodium bicarbonate. 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 (9) Vitamin D deficiency Is this a current diagnosis for this admission?: Yes Plan: We will check PTH as well. (10) Dementia Qualifiers: Dementia type: Alzheimer's disease Alzheimer's disease onset: late-onset Is this a current diagnosis for this admission?: Yes - Notes Notes: Thank you very much for this consultation. - Time Time Spent: Greater than 70 Minutes
[2017-06-23] MEDS: MONTELUKAST SODIUM 10 MG TABLET PO SCH (21:15)
[2017-06-23] MEDS: INSULIN GLARGINE,HUM.REC.ANLOG 300 UNIT/3 ML INSULN.PEN SUBCUT SCH (21:15)
--- NOTE | 2017-06-23 21:15 | PDOC PROGRESS REPORT ---
Subjective Progress Note for:: 06/23/17 Subjective:: Patient was seen today by the peoplesoft hr developer, care was discussed with her Reason For Visit: ALTERED MENTAL STATUS Physical Exam Vital Signs: Temp Pulse Resp BP Pulse Ox 98.4 F 65 20 94/76 L 99 06/23/17 19:39 06/23/17 19:39 06/23/17 19:39 06/23/17 19:39 06/23/17 19:39 Intake & Output 06/22/17 06/23/17 06/24/17 06:59 06:59 06:59 Intake Total 552 814 504 Balance 552 814 504 Weight 56.4 kg 56.2 kg General appearance: PRESENT: no acute distress Eye exam: PRESENT: PERRLA Respiratory exam: PRESENT: clear to auscultation juana Cardiovascular exam: PRESENT: +S1, +S2 Neurological exam: PRESENT: alert Results Laboratory Results: 06/21/17 13:49 06/22/17 06:43 06/23/17 19:12 PTH Intact 870.9 H Impressions: Head CT 06/16/17 18:22 IMPRESSION: Limited study. Microvascular ischemia with generalized atrophy and no acute intracranial imaging findings. Repeat as clinically indicated. EVIDENCE OF ACUTE STROKE: NO. Chest X-Ray 06/22/17 08:00 IMPRESSION: No acute findings. Stable borderline cardiomegaly. Assessment & Plan - Diagnosis (1) Acute kidney injury Is this a current diagnosis for this admission?: Yes (2) Pacemaker failure Qualifiers: Encounter type: initial encounter Qualified Code(s): T82.118A - Breakdown ( mechanical) of other cardiac electronic device, initial encounter Is this a current diagnosis for this admission?: Yes (3) Seizure Is this a current diagnosis for this admission?: Yes (4) Dementia Qualifiers: Dementia type: Alzheimer's disease Alzheimer's disease onset: late-onset Is this a current diagnosis for this admission?: Yes (5) Metabolic encephalopathy Is this a current diagnosis for this admission?: Yes (6) Hypernatremia Is this a current diagnosis for this admission?: Yes
[2017-06-24] MEDS: LANSOPRAZOLE 30 MG TAB.RAP.DR PO SCH (05:35)
[2017-06-24 06:47] LABS: ABSOLUTE RETICS # 0.038 10^6/uL (0.028-0.122); HEMATOCRIT 23.1 % (36.0-47.0); MEAN CORPUSCULAR HEMOGLOBIN 27.9 pg (27.0-33.4); MEAN CORPUSCULAR HGB CONC 33.5 g/dL (32.0-36.0); MEAN CORPUSCULAR VOLUME 83 fl (80-97); PLATELET COUNT 117 10^3/uL (150-450); RED BLOOD COUNT 2.78 10^6/uL (3.72-5.28); RED CELL DISTRIBUTION WIDTH 14.8 % (11.5-14.0); RETICULOCYTE COUNT (AUTO) 1.36 % (0.66-2.85); WHITE BLOOD COUNT 6.4 10^3/uL (4.0-10.5)
[2017-06-24 06:49] LABS: HEMOGLOBIN 7.7 g/dL (12.0-15.5)
[2017-06-24 07:07] LABS: ANION GAP 13 (5-19); BLOOD UREA NITROGEN 33 mg/dL (7-20); CALCIUM 8.9 mg/dL (8.4-10.2); CARBON DIOXIDE 25 mmol/L (22-30); CHLORIDE 109 mmol/L (98-107); GLUCOSE 71 mg/dL (75-110); IRON(TIBC) 28.6 ug/dL (37-170); PHOSPHORUS 4.8 mg/dL (2.5-4.5); POTASSIUM 3.8 mmol/L (3.6-5.0); SODIUM 146.6 mmol/L (137-145)
[2017-06-24] MEDS: IPRATROPIUM/ALBUTEROL 0.5-2.5 MG/3 ML AMPUL NEB PRN (08:10)
[2017-06-24 08:20] LABS: FOLATE > 20.00 ng/mL (>2.76)
[2017-06-24] MEDS: CHOLECALCIFEROL (D3) 1,000 UNIT TABLET PO SCH (09:32)
[2017-06-24] MEDS: FERROUS SULFATE 325 MG TABLET PO SCH (09:32)
[2017-06-24] MEDS: SODIUM BICARBONATE 650 MG TABLET PO SCH ×3 (09:32→17:26)
[2017-06-24] MEDS: CARBIDOPA/LEVODOPA 25-100 MG TABLET PO SCH ×2 (09:32→22:11)
[2017-06-24] MEDS: AMLODIPINE BESYLATE 10 MG TABLET PO SCH (09:32)
[2017-06-24] MEDS: LOSARTAN POTASSIUM 50 MG TABLET PO SCH (09:32)
[2017-06-24] MEDS ORDERED: FUROSEMIDE 40 MG TABLET PO SCH (10:00)
[2017-06-24] MEDS: MULTIVIT-STRESS FORMULA/ZINC TABLET PO SCH (14:50)
--- NOTE | 2017-06-24 21:11 | PDOC PROGRESS REPORT ---
Subjective Progress Note for:: 06/24/17 Subjective:: Patient's clinical condition remains unchanged. She continues to be nonverbal. Her appetite is poor. Reason For Visit: ALTERED MENTAL STATUS Physical Exam Vital Signs: Temp Pulse Resp BP Pulse Ox 98.7 F 53 L 18 146/63 H 100 06/24/17 15:45 06/24/17 19:00 06/24/17 15:45 06/24/17 15:45 06/24/17 15:45 Intake & Output 06/23/17 06/24/17 06/25/17 06:59 06:59 06:59 Intake Total 814 546 450 Balance 814 546 450 Weight 56.2 kg 56.8 kg Exam: General appearance: PRESENT: no acute distress, sleeping Head exam: PRESENT: atraumatic, normocephalic Eye exam: Eyes are closed Neck exam: ABSENT: JVD Respiratory exam: PRESENT: Diminished breath sounds. ABSENT: crackles, rales, rhonchi, unlabored, wheezes Cardiovascular exam: PRESENT: Regular rate rhythm -+S1, +S2. ABSENT: diastolic murmur, systolic murmur GI/Abdominal exam: PRESENT: normal bowel sounds, soft. ABSENT: guarding, mass, tenderness Extremities exam: Bilateral upper extremities and bilateral thighs edema Neurological exam: PRESENT: Patient is a asleep but arousable. Skin exam: PRESENT: dry, warm, Results Laboratory Results: 06/24/17 06:29 06/24/17 06:29 06/24/17 06/24/17 06:29 06:29 WBC 6.4 RBC 2.78 L Hgb 7.7 L Hct 23.1 L MCV 83 MCH 27.9 MCHC 33.5 RDW 14.8 H Plt Count 117 L Retic Count (auto) 1.36 Absolute Retic 0.038 Sodium 146.6 H Potassium 3.8 Chloride 109 H Carbon Dioxide 25 Anion Gap 13 BUN 33 H Creatinine 4.47 H Est GFR ( Amer) 11 L Est GFR (Non-Af Amer) 9 L Glucose 71 L Calcium 8.9 Phosphorus 4.8 H Iron 28.6 L TIBC 230 L % Saturation 12 Ferritin 146.00 Vitamin B12 881.0 Folate > 20.00 Impressions: Head CT 06/16/17 18:22 IMPRESSION: Limited study. Microvascular ischemia with generalized atrophy and no acute intracranial imaging findings. Repeat as clinically indicated. EVIDENCE OF ACUTE STROKE: NO. Chest X-Ray 06/22/17 08:00 IMPRESSION: No acute findings. Stable borderline cardiomegaly. Assessment & Plan - Diagnosis (1) Acute kidney injury Is this a current diagnosis for this admission?: Yes Plan: Initially thought to have acute on chronic kidney disease. As I mentioned I think the patient does have a progressively deteriorating kidney function and is currently now at end-stage renal disease. (2) Chronic kidney disease, stage V Is this a current diagnosis for this admission?: Yes Plan: Ideally the patient would need to be initiated on chronic hemodialysis but patient is not a candidate for that at this point due to her comorbid conditions. I do not think there will be any quality of life even with initiation of hemodialysis in the case of the patient. Dr. Watts and her son Dr. Matthews are aware of this and agreed. (3) Diabetic nephropathy Is this a current diagnosis for this admission?: Yes (4) Diabetes mellitus Qualifiers: Diabetes mellitus type: type 2 Diabetes mellitus residential insulin use: with manager long term care use Diabetes mellitus complication status: with kidney complications Diabetes mellitus complication detail: with chronic kidney disease Chronic kidney disease stage: stage 4 (severe) Qualified Code(s): E11.22 - Type 2 diabetes mellitus with diabetic chronic kidney disease Is this a current diagnosis for this admission?: Yes (5) Nephrotic syndrome Is this a current diagnosis for this admission?: Yes (6) Hypoalbuminemia Is this a current diagnosis for this admission?: Yes (7) Metabolic acidosis Is this a current diagnosis for this admission?: Yes (8) Anemia in chronic kidney disease Is this a current diagnosis for this admission?: Yes Plan: Her hemoglobin is lower today. There is no signs of active bleeding. We will give her Procrit 40,000 units subcutaneously. (9) Iron deficiency anemia Is this a current diagnosis for this admission?: Yes Plan: Her iron and transferrin saturations are low. We will give her IV Feraheme today. (10) Secondary hyperparathyroidism Is this a current diagnosis for this admission?: Yes Plan: Associated with hyperphosphatemia due to chronic kidney disease. Start calcitriol. (11) Vitamin D deficiency Is this a current diagnosis for this admission?: Yes (12) Dementia Qualifiers: Dementia type: Alzheimer's disease Alzheimer's disease onset: late-onset Is this a current diagnosis for this admission?: Yes - Notes Notes: Above recommendations discussed with Dr. Watts and Dr. Matthews. Prognosis is poor. Patient is not a candidate for chronic hemodialysis. - Time Time with patient: 15-25 minutes
--- NOTE | 2017-06-24 21:54 | PDOC PROGRESS REPORT ---
Subjective Progress Note for:: 06/24/17 Subjective:: She was seen by the bedside ,condition about the same, She was seen by Dr. Nam, she recommends hospice care Reason For Visit: ALTERED MENTAL STATUS Physical Exam Vital Signs: Temp Pulse Resp BP Pulse Ox 98.7 F 53 L 18 146/63 H 100 06/24/17 15:45 06/24/17 19:00 06/24/17 15:45 06/24/17 15:45 06/24/17 15:45 Intake & Output 06/23/17 06/24/17 06/25/17 06:59 06:59 06:59 Intake Total 814 546 450 Balance 814 546 450 Weight 56.2 kg 56.8 kg General appearance: PRESENT: no acute distress Eye exam: PRESENT: PERRLA Respiratory exam: PRESENT: rhonchi Cardiovascular exam: PRESENT: +S1, +S2 Neurological exam: PRESENT: alert Results Laboratory Results: 06/24/17 06:29 06/24/17 06:29 06/24/17 06/24/17 06:29 06:29 WBC 6.4 RBC 2.78 L Hgb 7.7 L Hct 23.1 L MCV 83 MCH 27.9 MCHC 33.5 RDW 14.8 H Plt Count 117 L Retic Count (auto) 1.36 Absolute Retic 0.038 Sodium 146.6 H Potassium 3.8 Chloride 109 H Carbon Dioxide 25 Anion Gap 13 BUN 33 H Creatinine 4.47 H Est GFR ( Amer) 11 L Est GFR (Non-Af Amer) 9 L Glucose 71 L Calcium 8.9 Phosphorus 4.8 H Iron 28.6 L TIBC 230 L % Saturation 12 Ferritin 146.00 Vitamin B12 881.0 Folate > 20.00 Impressions: Head CT 06/16/17 18:22 IMPRESSION: Limited study. Microvascular ischemia with generalized atrophy and no acute intracranial imaging findings. Repeat as clinically indicated. EVIDENCE OF ACUTE STROKE: NO. Chest X-Ray 06/22/17 08:00 IMPRESSION: No acute findings. Stable borderline cardiomegaly. Assessment & Plan - Diagnosis (1) Acute kidney injury Is this a current diagnosis for this admission?: Yes (2) Pacemaker failure Qualifiers: Encounter type: initial encounter Qualified Code(s): T82.118A - Breakdown ( mechanical) of other cardiac electronic device, initial encounter Is this a current diagnosis for this admission?: Yes (3) Seizure Is this a current diagnosis for this admission?: Yes (4) Dementia Qualifiers: Dementia type: Alzheimer's disease Alzheimer's disease onset: late-onset Is this a current diagnosis for this admission?: Yes (5) Metabolic encephalopathy Is this a current diagnosis for this admission?: Yes (6) Hypernatremia Is this a current diagnosis for this admission?: Yes
[2017-06-24] MEDS ORDERED: EPOETIN ALFA INJ 40000 UNIT/1 ML (RENAL) SUBCUT ONE (22:00)
[2017-06-24] MEDS ORDERED: FERUMOXYTOL 510 MG in NORMAL SALINE 100 ML IV ONE (22:00)
[2017-06-24] MEDS: INSULIN GLARGINE,HUM.REC.ANLOG 300 UNIT/3 ML INSULN.PEN SUBCUT SCH (22:05)
[2017-06-24] MEDS: MONTELUKAST SODIUM 10 MG TABLET PO SCH (22:11)
[2017-06-25] MEDS: LANSOPRAZOLE 30 MG TAB.RAP.DR PO SCH (05:34)
[2017-06-25] MEDS: IPRATROPIUM/ALBUTEROL 0.5-2.5 MG/3 ML AMPUL NEB PRN ×2 (08:33→13:43)
[2017-06-25] MEDS: FERROUS SULFATE 325 MG TABLET PO SCH (09:31)
[2017-06-25] MEDS: AMLODIPINE BESYLATE 10 MG TABLET PO SCH (09:34)
[2017-06-25] MEDS: CARBIDOPA/LEVODOPA 25-100 MG TABLET PO SCH ×2 (09:34→22:09)
[2017-06-25] MEDS: INSULIN LISPRO 100 UNIT/ML 3 ML VIAL SUBCUT PRN ×2 (09:34→17:21)
[2017-06-25] MEDS: CALCITRIOL 0.25 MCG CAPSULE PO SCH (09:34)
[2017-06-25] MEDS: LOSARTAN POTASSIUM 50 MG TABLET PO SCH (09:35)
[2017-06-25] MEDS: CHOLECALCIFEROL (D3) 1,000 UNIT TABLET PO SCH (09:35)
[2017-06-25] MEDS: FUROSEMIDE 20 MG TABLET PO SCH (09:35)
[2017-06-25] MEDS: SODIUM BICARBONATE 650 MG TABLET PO SCH ×3 (09:35→17:21)
[2017-06-25] MEDS ORDERED: FUROSEMIDE 40 MG TABLET PO SCH (10:00)
[2017-06-25] MEDS: MULTIVIT-STRESS FORMULA/ZINC TABLET PO SCH (14:23)
--- NOTE | 2017-06-25 20:44 | PDOC PROGRESS REPORT ---
Subjective Progress Note for:: 06/25/17 Subjective:: I spoke to the POA, patient's daughter and she is agreeable to hospice care, consultation will be obtained from hospice Reason For Visit: ALTERED MENTAL STATUS Physical Exam Vital Signs: Temp Pulse Resp BP Pulse Ox 98.9 F 66 20 129/53 H 100 06/25/17 16:00 06/25/17 16:00 06/25/17 16:00 06/25/17 16:00 06/25/17 16:00 Intake & Output 06/24/17 06/25/17 06/26/17 06:59 06:59 06:59 Intake Total 546 847 700 Balance 546 847 700 Weight 56.8 kg 55.2 kg General appearance: PRESENT: no acute distress Respiratory exam: PRESENT: rhonchi Cardiovascular exam: PRESENT: +S1, +S2 GI/Abdominal exam: PRESENT: soft Neurological exam: PRESENT: alert Results Laboratory Results: 06/24/17 06:29 06/24/17 06:29 06/24/17 06:29 Transferrin 155 L Impressions: Head CT 06/16/17 18:22 IMPRESSION: Limited study. Microvascular ischemia with generalized atrophy and no acute intracranial imaging findings. Repeat as clinically indicated. EVIDENCE OF ACUTE STROKE: NO. Chest X-Ray 06/22/17 08:00 IMPRESSION: No acute findings. Stable borderline cardiomegaly. Assessment & Plan - Diagnosis (1) Acute kidney injury Is this a current diagnosis for this admission?: Yes (2) Pacemaker failure Qualifiers: Encounter type: initial encounter Qualified Code(s): T82.118A - Breakdown ( mechanical) of other cardiac electronic device, initial encounter Is this a current diagnosis for this admission?: Yes (3) Seizure Is this a current diagnosis for this admission?: Yes (4) Dementia Qualifiers: Dementia type: Alzheimer's disease Alzheimer's disease onset: late-onset Is this a current diagnosis for this admission?: Yes (5) Metabolic encephalopathy Is this a current diagnosis for this admission?: Yes (6) Hypernatremia Is this a current diagnosis for this admission?: Yes
[2017-06-25] MEDS: MONTELUKAST SODIUM 10 MG TABLET PO SCH (22:09)
[2017-06-25] MEDS: INSULIN GLARGINE,HUM.REC.ANLOG 300 UNIT/3 ML INSULN.PEN SUBCUT SCH (22:10)
[2017-06-26] MEDS: LANSOPRAZOLE 30 MG TAB.RAP.DR PO SCH (05:03)
[2017-06-26] MEDS: IPRATROPIUM/ALBUTEROL 0.5-2.5 MG/3 ML AMPUL NEB PRN (07:37)
[2017-06-26] MEDS: AMLODIPINE BESYLATE 10 MG TABLET PO SCH (10:46)
[2017-06-26] MEDS: CARBIDOPA/LEVODOPA 25-100 MG TABLET PO SCH (10:46)
[2017-06-26] MEDS: CHOLECALCIFEROL (D3) 1,000 UNIT TABLET PO SCH (10:46)
[2017-06-26] MEDS: SODIUM BICARBONATE 650 MG TABLET PO SCH ×2 (10:47→14:02)
[2017-06-26] MEDS: LOSARTAN POTASSIUM 50 MG TABLET PO SCH (10:47)
[2017-06-26] MEDS: FERROUS SULFATE 325 MG TABLET PO SCH (10:47)
[2017-06-26] MEDS: FUROSEMIDE 20 MG TABLET PO SCH (10:47)
[2017-06-26] MEDS: CALCITRIOL 0.25 MCG CAPSULE PO SCH (11:01)
--- NOTE | 2017-06-26 11:15 | PDOC TRANSFER SUMMARY ---
General - Admit/Disc Date/PCP Admission Date/Primary Care Provider: 06/16/17 21:43 Discharge Date: 06/26/17 - Discharge Diagnosis (1) Acute kidney injury Is this a current diagnosis for this admission?: Yes (2) Pacemaker failure Is this a current diagnosis for this admission?: Yes (3) Seizure Is this a current diagnosis for this admission?: Yes (4) Dementia Is this a current diagnosis for this admission?: Yes (5) Metabolic encephalopathy Is this a current diagnosis for this admission?: Yes (6) Hypernatremia Is this a current diagnosis for this admission?: Yes (7) Chronic kidney disease, stage 5 Is this a current diagnosis for this admission?: Yes (8) Secondary hyperparathyroidism Is this a current diagnosis for this admission?: Yes (9) Dementia Is this a current diagnosis for this admission?: Yes (10) Nephrotic syndrome Is this a current diagnosis for this admission?: Yes (11) New onset seizure Is this a current diagnosis for this admission?: Yes - Additional Information Resuscitation Status: Do Not Resuscitate Home Medications: Acetaminophen [Tylenol 325 mg Tablet] 650 mg PO Q4HP PRN 06/16/17 Amlodipine Besylate [Norvasc 10 mg Tablet] 10 mg PO DAILY 06/16/17 Aspirin [Aspirin 81 mg Chewable Tablet] 81 mg PO DAILY 06/16/17 Carbidopa/Levodopa [Sinemet 25-100 mg Tablet] 1 tab PO Q12 06/16/17 Carvedilol [Coreg 6.25 mg Tablet] 6.25 mg PO Q12 06/16/17 Cholecalciferol (Vitamin D3) [Vitamin D3 1000 Unit Tablet] 1,000 unit PO DAILY 06/16/17 Docusate Sodium [Colace 100 mg Capsule] 100 mg PO BID 06/16/17 Ferrous Sulfate [Ferosul] 325 mg PO DAILY 06/16/17 Insulin Glargine,Hum.rec.anlog [Lantus Insulin Inj 300 Unit/3 ml Pen] 7 unit SUBCUT QHS 06/16/17 Insulin Lispro [Humalog Insulin (Lispro) 100 unit/mL] 0 unit SUBCUT .SLD SCALE 06/16/17 Ipratropium/Albuterol Sulfate [Duoneb 3 ml Ampul] 3 ml NEB RTQ2HP PRN 06/16/17 Losartan Potassium [Cozaar 100 mg Tablet] 100 mg PO DAILY 06/16/17 Montelukast Sodium [Singulair 10 mg Tablet] 10 mg PO QHS 06/16/17 Omeprazole 40 mg PO Q6AM 06/16/17 Sodium Bicarbonate [Sodium Bicarbonate 650 mg Tablet] 650 mg PO TID 06/16/17 Sodium Polystyrene Sulfonate [Kayexalate 15 gm/60 ml Susp 60 ml] 15 gm PO DAILY 06/16/17 History of Present Illness Admission Date/PCP: 06/16/17 21:43 History of Present Illness: AUDRA LANDRY is a 87 year old female, She has baseline dementia, diabetes mellitus complicated with diabetic nephropathy with nephrotic range proteinuria , chronic kidney disease stage IV, [facility] to [facility] room for evaluation of severe bradycardia associated with hypo-glycemia. She is dysphasic/aphasic. She has a pacemaker when she arrived in the emergency room there was a pacemaker spike but it does not seem to be capturing any rhythm, the pacemaker was interrogated and was resected. She was also found to have severe lactic acidosis, worsening acute on chronic kidney disease she also had episode of seizure en route to the [facility] the [facility]. No history could be obtained from this patient the history is essentially from chart review from the [facility] and also from the emergency room. Patient's son is a coil strapper on staff in the hospital, he is tangentially involved in the care of his mother Hospital Course Hospital Course: Patient with advanced dementia she was admitted for the management of seizure, pacemaker dysfunction, acute on chronic kidney disease. She has nephrotic range proteinuria, she was seen by nephrology, it was felt that she is not a candidate for hemodialysis, she is a resident of [facility]. The recommendation is to transfer care to hospice. The pacemaker was interrogated in the hospital and adjusted, there was presumed seizure no episode of seizure was noticed in the hospital, doubt the veracity of seizure in this patient Physical Exam Vital Signs: Temp Pulse Resp BP Pulse Ox 98.1 F 66 20 142/51 H 97 06/26/17 07:30 06/26/17 07:41 06/26/17 07:41 06/26/17 07:30 06/26/17 07:41 Intake & Output 06/25/17 06/26/17 06/27/17 06:59 06:59 06:59 Intake Total 847 940 Balance 847 940 Weight 55.2 kg 57 kg General appearance: PRESENT: no acute distress Eye exam: PRESENT: PERRLA Respiratory exam: PRESENT: rhonchi Cardiovascular exam: PRESENT: +S1, +S2 GI/Abdominal exam: PRESENT: soft Neurological exam: PRESENT: alert Results Laboratory Results: 06/24/17 06:29 06/24/17 06:29 Impressions: Head CT 06/16/17 18:22 IMPRESSION: Limited study. Microvascular ischemia with generalized atrophy and no acute intracranial imaging findings. Repeat as clinically indicated. EVIDENCE OF ACUTE STROKE: NO. Chest X-Ray 06/22/17 08:00 IMPRESSION: No acute findings. Stable borderline cardiomegaly. Transfer Plan - Disposition Transfer Plan: Patient CARE is transitioned to hospice, [facility] with [facility] care Qualifiers - * PATIENT BEING DISCHARGED WITH ANY OF THE FOLLOWING DIAGNOSIS: No
[2017-06-26] MEDS: MULTIVIT-STRESS FORMULA/ZINC TABLET PO SCH (14:02)
[2017-06-26 17:11] VITALS: BP 146/48
== END 2017-06-26 17:00 | DRG 682 ==
LOC: ER 18:18 → EH 21:43 → 5 06-17 00:06
PROVIDERS: ADMIT Internal Medicine; ATTEND Internal Medicine
DX: N17.9 Acute kidney failure, unspecified (principal); G93.41 Metabolic encephalopathy; I13.2 Hypertensive heart and chronic kidney disease with heart failure and with stage 5 chronic kidney disease, or end stage renal disease; T82.119A Breakdown (mechanical) of unspecified cardiac electronic device, initial encounter; E87.0 Hyperosmolality and hypernatremia; I50.32 Chronic diastolic (congestive) heart failure; Z66 Do not resuscitate; R00.1 Bradycardia, unspecified; N18.6 End stage renal disease; R56.9 Unspecified convulsions; I48.91 Unspecified atrial fibrillation; I25.10 Atherosclerotic heart disease of native coronary artery without angina pectoris; E78.00 Pure hypercholesterolemia, unspecified; E11.22 Type 2 diabetes mellitus with diabetic chronic kidney disease; D63.1 Anemia in chronic kidney disease; E55.9 Vitamin D deficiency, unspecified; E11.21 Type 2 diabetes mellitus with diabetic nephropathy; N25.81 Secondary hyperparathyroidism of renal origin; E86.0 Dehydration; G30.1 Alzheimer's disease with late onset; F02.80 Dementia in other diseases classified elsewhere, unspecified severity, without behavioral disturbance, psychotic disturbance, mood disturbance, and anxiety; R41.82 Altered mental status, unspecified; Z95.0 Presence of cardiac pacemaker; Z79.82 Long term (current) use of aspirin; Z79.4 Long term (current) use of insulin; Z79.899 Other long term (current) drug therapy
CPT/HCPCS: 36415; 51701; 70450; 71045; 80048; 80053; 81001; 82040; 82306; 82570; 82607; 82728; 82746; 82803; 82962; 83540; 83550; 83605; 83735; 83970; 84100; 84156; 84443; 84466; 84484; 85025; 85027; 85045; 85610; 87040; 87086; 93005; 93010; 99291; J1815; J1940; J3490; J7030; J7060; J7620; Q0139; Q4081

== ENCOUNTER 2017-10-25 09:38 | Emergency (ER) | payer MEDICARE, MEDICAID ==
--- NOTE | 2017-10-25 10:28 | ER Document Report ---
HPI - HPI Pain Level: 3 Notes: Patient is an 87-year-old female DNR status, history of dementia, CHF, and a pacemaker ([employer]) who [facility] complaining of a blistering/vesicular type rash noted 4 days ago by the [facility]. Patient is nonverbal and does not speak French. No other concerns or complaints at this time. No drug allergies by history. - ROS ROS Unobtainable: Yes ROS unobtainable due to patient's medical condition - REPRODUCTIVE Reproductive: DENIES: : Past Medical History - Social History Smoking Status: Unknown if Ever Smoked Family History: Reviewed & Not Pertinent Patient has suicidal ideation: No - Unable to assess, pt nonverbal Patient has homicidal ideation: No - Unable to assess, pt nonverbal - Past Medical History Cardiac Medical History: Reports: Hx Congestive Heart Failure, Hx Coronary Artery Disease, Hx Hypercholesterolemia, Hx Hypertension Pulmonary Medical History: Reports: Hx Asthma, Hx Pneumonia Endocrine Medical History: Reports: Hx Diabetes Mellitus Type 2 Renal/ Medical History: Reports: Hx End Stage Renal Disease. Denies: Hx Peritoneal Dialysis GI Medical History: Reports: Hx Gastroesophageal Reflux Disease Psychiatric Medical History: Reports: Hx Dementia, Hx Depression Past Surgical History: Reports: Hx Pacemaker Vertical Provider Document - CONSTITUTIONAL Agree With Documented VS: Yes Notes: PHYSICAL EXAMINATION: GENERAL: Well-appearing, well-nourished and in no acute distress. HEAD: Atraumatic, normocephalic. EYES: Pupils equal round and reactive to light, extraocular movements intact, sclera anicteric, conjunctiva are normal. ENT: EAC clear b/l. TM's intact b/l without erythema, fluid, or perforation. Nares patent and without discharge. Pt non-compliant with opening mouth. NECK: Normal range of motion, supple without lymphadenopathy LUNGS: Breath sounds clear to auscultation bilaterally and equal. No wheezes rales or rhonchi. HEART: Regular rate and rhythm without murmurs, rubs, gallops. ABDOMEN: Soft, nontender, nondistended abdomen. No guarding, no rebound. Normal bowel sounds present. Musculoskeletal: some contractions, chronic, to UE. Moving legs w/o any difficulty. Extremities: No cyanosis, clubbing, or edema b/l. Peripheral pulses 2+. Capillary refill less than 3 seconds. NEUROLOGICAL: Normal speech, normal gait. PSYCH: Normal mood, normal affect. SKIN: bullae, generalized. no skin sloughing. skin is taught with tension applied. Bullae are tense. No signs of erythema, abscess, streaks, or excessive warmth. Pt was noted to be rubbing her legs together as if she were scratching. - INFECTION CONTROL TRAVEL OUTSIDE OF THE [place] IN LAST 30 DAYS: No Course - Re-evaluation Re-evalutation: 10/25/17 10:[address] Zee evaluate the patient agrees with dispo and plan. Patient is an afebrile, well-hydrated, 87-year-old female who presents to the ED with bullous pemphigoid based on H&P today. Vitals are acceptable without significant tachycardia, tachypnea, or hypoxia. PE is otherwise unremarkable aside from the rash. It does appear that patient is trying to scratch this rash on occasion. Decadron given 10 mg IM. I will also be sending her home with some Atarax to use as needed. No labs or imaging warranted at this time based on H&P. Patient is nontoxic-appearing at this time. Low suspicion for any Peters-Kayode syndrome, toxic epidermal necrolysis, staphylococcal scalded skin syndrome, sepsis, meningitis, severe dehydration, respiratory compromise, or other systemic emergent condition at this time. Recheck with your PCM in 3-5 days. Recommend consult with dermatology. Return to the ED with any worsening/concerning symptoms otherwise as reviewed in discharge. - Vital Signs Vital signs: Temp Pulse Resp BP Pulse Ox 98.0 F 60 18 139/28 H 9 L 10/25/17 10:01 10/25/17 10:01 10/25/17 10:01 10/25/17 10:01 10/25/17 10:01 Discharge - Discharge Clinical Impression: Bullous pemphigoid, Generalized bullous eruption Condition: Stable Disposition: HOME-SNF (ED ONLY) Additional Instructions: Keep the skin clean Wash with soap and water Tylenol/ibuprofen if needed Triple antibiotic ointment daily for any break in the skin Take medication as directed Monitor for any worsening symptoms Recheck with your PCM in 3-5 days Schedule an appointment with dermatology for further evaluation and management Return to the ED with any worsening symptoms and/or development of fever, headache, chest pain, palpitations, syncope, shortness of breath, trouble breathing, abdominal pain, n/v/d, abscess, purulent discharge, red streaks, worsening swelling, or other worsening symptoms that are concerning to you. Prescriptions: Hydroxyzine HCl [Atarax 25 mg Tablet] 1 tab PO QID PRN #15 tablet PRN Reason: Referrals: CANDICE LUND MD [Primary Care Provider] - Follow up in 3-5 days GAGAN WILCOX DO [ACTIVE STAFF] - Follow up in 3-5 days
[2017-10-25] MEDS ORDERED: DEXAMETHASONE SOD PHOS INJ 10 MG/1 ML VIAL IM ONE (10:30)
[2017-10-25 10:57] VITALS: BP 97/77
== END 2017-10-25 12:30 ==
LOC: ER 09:38
DX: L12.0 Bullous pemphigoid (principal); R21 Rash and other nonspecific skin eruption; F03.90 Unspecified dementia, unspecified severity, without behavioral disturbance, psychotic disturbance, mood disturbance, and anxiety; Z95.0 Presence of cardiac pacemaker; I25.10 Atherosclerotic heart disease of native coronary artery without angina pectoris; I10 Essential (primary) hypertension; E11.9 Type 2 diabetes mellitus without complications; J45.909 Unspecified asthma, uncomplicated
CPT/HCPCS: 99284; 96372; J1100